=== PATIENT | female | born 1955 | race Two or more races ===

== ENCOUNTER → 2020-03-16 14:17 | Outpatient (BNVA) | payer OTHER, SELFPAY | PROVIDERS: PCP Internal Medicine; Referring Provider Internal Medicine; Visit Provider Internal Medicine Pulmonary Disease | DX: J45.50 Severe persistent asthma, uncomplicated (principal); Z91.09 Other allergy status, other than to drugs and biological substances; Z79.899 Other long term (current) drug therapy | CPT/HCPCS: 99214 ==

== ENCOUNTER 2020-03-27 14:25 | Outpatient (REF) | payer OTHER, SELFPAY | END 2020-03-27 14:26 | disposition home or self-care (01) | LOC: HO.MDS 14:25 | PROVIDERS: Visit Provider Internal Medicine Pulmonary Disease | DX: J45.909 Unspecified asthma, uncomplicated (principal) | CPT/HCPCS: 96372; J0517 ==

== ENCOUNTER 2020-05-22 12:23 | Outpatient (REF) | payer OTHER, SELFPAY ==
--- NOTE | 2020-05-22 12:30 | XR_ITS ---
EXAMINATION: XR KNEE, LEFT CLINICAL INFORMATION: Osteoarthritis of left knee COMPARISON: None TECHNIQUE: Four views of the left knee. FINDINGS: No fracture or subluxation. Mild medial compartment joint space narrowing. Small marginal osteophytes of the medial and patellofemoral compartments. Enthesophyte formation at the superior pole of the patella. Small joint effusion. XR/XR knee LT 4V IMPRESSION: Mild degenerative changes at the medial and patellofemoral compartments. Small joint effusion.
== END 2020-05-22 12:24 | disposition home or self-care (01) ==
LOC: HO.MDS 12:23
PROVIDERS: PCP Internal Medicine; Visit Provider Internal Medicine Pulmonary Disease
DX: J45.909 Unspecified asthma, uncomplicated (principal); M17.12 Unilateral primary osteoarthritis, left knee
CPT/HCPCS: 73564; J0517

== ENCOUNTER 2020-05-23 10:34 | Outpatient (REF) | payer OTHER, SELFPAY ==
--- NOTE | 2020-05-23 | MM_ITS ---
EXAMINATION: MM SCREENING DIGITAL BREAST TOMOSYNTHESIS, BILATERAL CLINICAL INFORMATION: Screening. Asymptomatic. The lifetime risk of breast cancer based on the Tyrer-Cuzick Model is 5%. COMPARISON: Mammography: 02/02/2019, 12/31/2017, 12/23/2016, 10/18/2015 TECHNIQUE: Digital breast tomosynthesis is performed in both the craniocaudal and mediolateral oblique views along with computer-aided detection (CAD). Synthesized 2D images are generated from the tomosynthesis. FINDINGS: The breasts are heterogeneously dense, which may obscure small masses (ACR BI-RADS breast composition Category c). The right breast is similar to prior studies with no interval mass or developing density. Neither breast shows abnormal calcifications. The bilateral axilla and skin contours are unremarkable. Left breast has a lobulated mass anterior 8:00 position approximately 1.3 x 1.1 x 1.1 cm representing change from prior studies. Targeted ultrasound is recommended. Left breast also has a questionable focal nodular asymmetry mid left upper outer quadrant. Additional mammographic views are recommended. MM/MM tomosynthesis screening BI IMPRESSION: 1. Left: 2 findings: lobulated mass 8:00 position 1.3 cm; focal nodular asymmetry mid upper outer quadrant. 2. Right: No mammographic evidence of malignancy. ASSESSMENT: BI-RADS 0: Incomplete - Need Additional Imaging Evaluation RECOMMENDATION: 1. Additional views of the left breast (3D spot CC and 3D spot ML for focal nodular asymmetry upper outer quadrant). 2. Targeted ultrasound left breast. 3. Radiology department staff will contact the patient for additional imaging. This patient's information was entered into a reminder system with a target due date for their next mammogram.
== END 2020-05-23 10:35 | disposition home or self-care (01) ==
LOC: HO.MAMMO 10:34
PROVIDERS: Visit Provider Internal Medicine
DX: Z12.31 Encounter for screening mammogram for malignant neoplasm of breast (principal)
CPT/HCPCS: 77063; 77067; 96372

== ENCOUNTER 2020-06-20 13:57 | Outpatient (REF) | payer OTHER, SELFPAY | END 2020-06-20 13:58 | disposition home or self-care (01) | LOC: HO.MDS 13:57 | PROVIDERS: Visit Provider Internal Medicine Pulmonary Disease | DX: J45.50 Severe persistent asthma, uncomplicated (principal) | CPT/HCPCS: 96372; J0517 ==

== ENCOUNTER 2020-07-17 13:46 | Outpatient (REF) | payer OTHER, SELFPAY ==
--- NOTE | ~2020-07-17 | MM_ITS ---
EXAMINATION: MM DIAGNOSTIC DIGITAL BREAST TOMOSYNTHESIS, LEFT US DIAGNOSTIC ULTRASOUND BREAST, LEFT CLINICAL INFORMATION: Recall from screening for additional findings, new lobulated mass 8:00 position and asymmetric density mid upper outer left breast, respectively. TC score 5%. COMPARISON: Mammography: 05/23/2020, 02/02/2019, 12/31/2017 TECHNIQUE: Digital breast tomosynthesis is performed. 2D images are generated from the tomosynthesis. The following views are obtained: 3-D spot CC, 3-D spot ML x2. Ultrasound left breast is targeted to the lower inner quadrant. Grayscale imaging and color Doppler are performed without and with harmonics. Additional imaging also performed left axilla. FINDINGS: The breasts are heterogeneously dense, which may obscure small masses (ACR BI-RADS breast composition Category c). Additional views left breast demonstrates no persistent asymmetric density upper outer quadrant. Parenchymal pattern is similar to prior exams. Ultrasound targeted ultrasound lower inner left breast demonstrates irregular hypoechoic mass 8:00 position 4 cm from nipple measuring 1.5 cm in greatest dimension. There is likely a 0.4 cm satellite lesion within 0.4 cm of the primary mass. Additional imaging left axilla shows no lymphadenopathy. Results are discussed with the patient at time of visit, using an full time staff interpreter. Ultrasound-guided core biopsy is recommended mass lower inner quadrant left breast. Results and recommendation called to office ([facility]) for Dr. Villasenor on 07/17/2020. MM/MM tomosynthesis added views L IMPRESSION: 1. Suspicious irregular hypoechoic mass lower inner quadrant left breast, 1.5 cm in greatest dimension. 2. Additional images upper outer left breast show no persistent asymmetric density. ASSESSMENT: BI-RADS 4: Suspicious (subcategory 4C: High suspicion for malignancy) RECOMMENDATION: Ultrasound-guided core biopsy left breast mass lower inner quadrant. This patient's information was entered into a reminder system with a target due date for their next mammogram.
== END 2020-07-17 13:47 | disposition home or self-care (01) ==
LOC: HO.MAMMO 13:46
PROVIDERS: Visit Provider Internal Medicine
DX: N63.24 Unspecified lump in the left breast, lower inner quadrant (principal); R92.2 Inconclusive mammogram
CPT/HCPCS: 76642; 77061; 77065

== ENCOUNTER 2020-07-18 13:49 | Outpatient (REF) | payer OTHER, SELFPAY | END 2020-07-18 13:50 | disposition home or self-care (01) | LOC: HO.MDS 13:49 | PROVIDERS: PCP Internal Medicine; Visit Provider Internal Medicine Pulmonary Disease | DX: J45.50 Severe persistent asthma, uncomplicated (principal) | CPT/HCPCS: 96372; J0517 ==

== ENCOUNTER → 2020-07-20 07:24 | Outpatient (BNVA) | payer OTHER, SELFPAY | PROVIDERS: PCP Internal Medicine; Visit Provider Surgery | DX: R92.8 Other abnormal and inconclusive findings on diagnostic imaging of breast (principal) | CPT/HCPCS: 99202 ==

== ENCOUNTER 2020-07-26 09:10 | Outpatient (REF) | payer OTHER, SELFPAY ==
--- NOTE | ~2020-07-26 | MM_ITS ---
EXAMINATION EXAMINATION: EXAMINATION: ULTRASOUND GUIDED CORE BIOPSY BREAST, LEFT POST PROCEDURE DIGITAL MAMMOGRAM, LEFT CLINICAL INFORMATION: Irregular hypoechoic mass 8:00 position left breast 1.5 cm. COMPARISON: Mammography 05/23/2020, 07/17/2020, ultrasound 07/17/2020. FINDINGS: Proper informed consent is obtained from the patient after discussion of the procedure, potential risks and complications, and alternatives. Patient was given an opportunity for questions. The patient appeared to understand. The patient consented to the procedure and signed the consent form. GUIDANCE: Ultrasound-guided; aseptic technique. LESION: Irregular hypoechoic mass 8:00 position 1.5 cm. APPROACH: Mediolateral. ANESTHESIA: 16 mL 1% lidocaine. DERMATOTOMY: Single skin shannan dermatotomy performed. NEEDLE: 14-gauge Achieve core biopsy device with 13.5-gauge co-axial guide needle. CORES: 5. CLIP: HydroMARK; shape: butterfly. POST PROCEDURE UNILATERAL DIGITAL MAMMOGRAM: The post biopsy mammogram is performed in separate room using separate digital mammography equipment from the biopsy procedure. CC and ML views are obtained. The breasts are heterogeneously dense, which may obscure small masses (breast composition category: c). The clip marker is in position. No gross hematoma. The patient tolerated the procedure well. No immediate complications. Home instructions reviewed with the patient. Final pathology results are pending. MM/MM diagnostic mammo unilat LT IMPRESSION: 1. Status post ultrasound-guided core biopsy left breast. 2. Clip placed: HydroMARK; shape: butterfly. 3. Pathology pending. An addendum report will be issued.
== END 2020-07-26 09:11 | disposition home or self-care (01) ==
LOC: HO.MAMMO 09:10
PROVIDERS: Visit Provider Surgery
DX: C50.312 Malignant neoplasm of lower-inner quadrant of left female breast (principal); Z17.0 Estrogen receptor positive status [ER+]
CPT/HCPCS: 19083; 77065; 88305; 88341; 88342; 88360

== ENCOUNTER → 2020-08-01 15:55 | Outpatient (BNVA) | payer OTHER, SELFPAY | PROVIDERS: PCP Internal Medicine; Visit Provider Surgery | DX: R92.8 Other abnormal and inconclusive findings on diagnostic imaging of breast (principal) | CPT/HCPCS: 99212 ==

== ENCOUNTER 2020-08-09 06:37 | Outpatient (REF) | payer OTHER, SELFPAY | END 2020-08-09 06:38 | disposition home or self-care (01) | LOC: HO.MAMMO 06:37 | PROVIDERS: Visit Provider Surgery | DX: Z13.89 Encounter for screening for other disorder (principal) ==

== ENCOUNTER 2020-08-09 06:38 | Day surgery (SDC) | payer OTHER, SELFPAY ==
[2020-08-08 09:48] VITALS: BMI 30.7
--- NOTE | ~2020-08-09 | MM_ITS ---
EXAMINATION: Ultrasound GUIDED NEEDLE LOCALIZATION BREAST, LEFT MM NEEDLE LOCALIZATION SPECIMEN FROM THE LEFT BREAST CLINICAL INFORMATION: Invasive ductal carcinoma of the left breast. COMPARISON: July 26, 2020 and studies dating back to February 02, 2019 TECHNIQUE NEEDLE LOC: Proper informed consent is obtained from the patient after discussion of the procedure, potential risks and complications, and alternatives including declining the procedure today. Patient was given an opportunity for questions. The patient appeared to understand. The patient consented to the procedure and signed the consent form. GUIDANCE: Ultrasound APPROACH: Medial. TARGET: Hypoechoic mass containing metallic clip.. ANESTHESIA: lidocaine 1%: 3 cc. LOCALIZATION MARKER: [place] [employer]. 7.5 cm long The skin is prepped and local anesthesia administered. The needle is positioned and position assessed with ultrasound. The wire is hooked into position. Adjustment of the needle depth was made under mammography with tip of needle lying approximately 1 cm distal to the targeted lesion. [place] needle protector placed. The patient tolerated the procedure well and had no immediate complication. Following the procedure, 4% lidocaine ointment was administered to the left areola and covered with Tegaderm in anticipation of nuclear lymphoscintigraphy injection for sentinel lymph node mapping. TECHNIQUE SPECIMEN RADIOGRAPH: Imaging of the excised specimen is performed using digital mammography in 1 view. FINDINGS SPECIMEN RADIOGRAPH: The specimen shows the needle and hookwire are delivered intact. The biopsy clip marker and index mass are identified in the specimen. Results were called to Dr. Chris Christy in the operating room at the time of imaging. MM/MM diagnostic mammo unilat LT IMPRESSION: 1. Status post left breast needle localization with wire hooked into position. 2. Post operative specimen radiograph obtained.
--- NOTE | ~2020-08-09 | NM_ITS ---
EXAMINATION: NM LYMPHOSCINTIGRAPHY BREAST, LEFT CLINICAL INFORMATION: Invasive ductal cancer left breast. COMPARISON: Mammography and left breast ultrasound 07/17/2020, ultrasound-guided left breast biopsy 07/26/2020. TECHNIQUE: Informed consent was obtained prior to the exam. Lidocaine gel administered to areola within 60 minutes of the procedure. Technetium 99m-Lymphoseek 0.5 mCi was divided into 4 syringes with intradermal administration at 4 quadrants around the areola. The patient tolerated the procedure well. Imaging is performed in 6 views within 45 minutes of injection. FINDINGS: There is strong activity around the areola. There is no activity at the left axilla nor activity along a lymphatic channel at 45 minutes postinjection. Preliminary results called to biomedical equipment support specialist (Usha) for Dr. Christy at 1103 hours.. NM/NM sentinel node w imaging IMPRESSION: 1. Status post breast radionuclide lymphoscintigraphy for sentinel lymph node mapping. 2. No axillary or lymphatic channel activity at 45 minutes postinjection.
[2020-08-09 07:25] VITALS: BP 142/83; PULSE 68; RESP 16; TEMP 36.9; O2SAT 95
[2020-08-09] MEDS: Lactated Ringers 1,000 ML 100 ML IVCONT (07:53)
--- NOTE | 2020-08-09 10:34 | P.CONAN_ITS ---
[facility] Active Problems Active Problems: All Active Problems (Updated 08/09/20 @ 07:24 by Lashonda edwards RN) Severe persistent allergic asthma (Acute) Environmental allergies (Acute) Arthritis (Acute) Abnormal mammogram of left breast (Acute) Past Medical History Medical History Abnormal mammogram of left breast Arthritis Asthma Breast cancer History of high cholesterol HTN (hypertension) Social History Social History Alcohol intake: never Smoking Status: Never smoker Use of substances other than those prescribed or required for medical reasons: No Advance Directives: No Advance Directives Information Provided: Yes Meds Allergies Allergy/AdvReac Type Severity Reaction Status Date / Time morphine [MORPHINE] Allergy Unknown STATES Verified 08/09/20 07:03 TABLET FORM CAUSES SHAKING Active Medications: Current Medications Generic Name Dose Route Start Last Admin Trade Name Freq PRN Reason Stop Dose Admin Lactated Ringer's 1,000 mls @ 100 mls/hr 08/09/20 07:00 08/09/20 07:53 Lr IVCONT 100 mls/hr .Q10H KALYN Administration Home Medications Medication Instructions Recorded Confirmed Last Taken Type albuterol sulfate mg INHALATION 03/05/20 08/02/20 Unknown History albuterol sulfate 90 mcg/actuation INHALATION 03/05/20 08/02/20 Unknown History aerosol inhaler atorvastatin 40 mg tablet 40 mg PO BEDTIME 03/05/20 08/02/20 Unknown History hydrochlorothiazide 12.5 mg tablet 12.5 mg PO DAILY 03/05/20 08/02/20 Unknown History ipratropium bromide 0.02 % 1 INHALATION PRN 03/05/20 08/02/20 Unknown History solution for inhalation ipratropium bromide 17 2 puff INHALATION QID 03/05/20 08/02/20 Unknown History mcg/actuation HFA aerosol inhaler loratadine 10 mg tablet 10 mg PO DAILY 03/05/20 08/02/20 Unknown History montelukast 10 mg tablet 10 mg PO DAILY 03/05/20 08/02/20 Unknown History terbinafine HCl 1 % topical cream applic TOPICAL BID 03/05/20 08/02/20 Unknown History varicella-zoster glycoE vacc-[id number] ml IM 03/05/20 08/02/20 Unknown History adj(PF) 50 mcg/0.5 mL IM susp, kit fluticasone propionate 50 INTRANASAL 03/16/20 08/02/20 Unknown History mcg/actuation nasal spray,suspension ibuprofen 600 mg tablet 600 mg PO TID PRN 03/16/20 08/02/20 Unknown History Exam Exam Date and Time: August 09, 2020 1034 Height,Weight and Vital Signs: Height 5 ft 4 in Weight 81.3 kg Last Vital Signs Temp 98.4 F 08/09/20 07:25 Pulse 68 08/09/20 07:25 Resp 16 08/09/20 07:25 BP 142/83 H 08/09/20 07:25 Pulse Ox 95 08/09/20 07:25 Airway Mallampati Class: II TM Dist: >3cm Neck ROM: Full Assessment and Plan Assessment Anesthesia Assessment: Anesthesia Plan Discussed and Chart Reviewed Final Anesthetic Review NPO: Yes ASA Class: II Final Preanesthetic Review: No Changes in Pt Med Stat, Meds/Allgs Chart Reviewed, Consent Obtained/Reviewed and Anes Risks/Benef Reviewed Patient Risk: Low Procedure Risk: Low Assessment/Block/Sedation in SS: Assess/Block/Sedation-SS Anesthetic Plan Anesthetic Plan: GA Disposition: Standard PACU
--- NOTE | 2020-08-09 10:36 | HO.ANESPROP2 ---
[facility] Active Problems Active Problems: All Active Problems (Updated 08/09/20 @ 07:24 by Lashonda Michelle RN) Severe persistent allergic asthma (Acute) Environmental allergies (Acute) Arthritis (Acute) Abnormal mammogram of left breast (Acute) Past Medical History Medical History Abnormal mammogram of left breast Arthritis Asthma Breast cancer History of high cholesterol HTN (hypertension) Social History Social History Alcohol intake: never Smoking Status: Never smoker Use of substances other than those prescribed or required for medical reasons: No Advance Directives: No Advance Directives Information Provided: Yes Meds Allergies Allergy/AdvReac Type Severity Reaction Status Date / Time morphine [MORPHINE] Allergy Unknown STATES Verified 08/09/20 07:03 TABLET FORM CAUSES SHAKING Active Medications: Current Medications Generic Name Dose Route Start Last Admin Trade Name Freq PRN Reason Stop Dose Admin Lactated Ringer's 1,000 mls @ 100 mls/hr 08/09/20 07:00 08/09/20 07:53 Lr IVCONT 100 mls/hr .Q10H KALYN Administration Lactated Ringer's 1,000 mls @ 20 mls/hr 08/09/20 10:45 Lr IVCONT .Q24H [facility] Home Medications Medication Instructions Recorded Confirmed Last Taken Type albuterol sulfate mg INHALATION 03/05/20 08/02/20 Unknown History albuterol sulfate 90 mcg/actuation INHALATION 03/05/20 08/02/20 Unknown History aerosol inhaler atorvastatin 40 mg tablet 40 mg PO BEDTIME 03/05/20 08/02/20 Unknown History hydrochlorothiazide 12.5 mg tablet 12.5 mg PO DAILY 03/05/20 08/02/20 Unknown History ipratropium bromide 0.02 % 1 INHALATION PRN 03/05/20 08/02/20 Unknown History solution for inhalation ipratropium bromide 17 2 puff INHALATION QID 03/05/20 08/02/20 Unknown History mcg/actuation HFA aerosol inhaler loratadine 10 mg tablet 10 mg PO DAILY 03/05/20 08/02/20 Unknown History montelukast 10 mg tablet 10 mg PO DAILY 03/05/20 08/02/20 Unknown History terbinafine HCl 1 % topical cream applic TOPICAL BID 03/05/20 08/02/20 Unknown History varicella-zoster glycoE vacc-AS01B ml IM 03/05/20 08/02/20 Unknown History adj(PF) 50 mcg/0.5 mL IM susp, kit fluticasone propionate 50 INTRANASAL 03/16/20 08/02/20 Unknown History mcg/actuation nasal spray,suspension ibuprofen 600 mg tablet 600 mg PO TID PRN 03/16/20 08/02/20 Unknown History Exam Exam Date and Time: August 09, 2020 1036 Height,Weight and Vital Signs: Height 5 ft 4 in Weight 81.3 kg Last Vital Signs Temp 98.4 F 08/09/20 07:25 Pulse 68 08/09/20 07:25 Resp 16 08/09/20 07:25 BP 142/83 H 08/09/20 07:25 Pulse Ox 95 08/09/20 07:25
--- NOTE | 2020-08-09 12:44 | P.OP_ITS ---
Operative Note Operative Note Date of Service: 08/09/20 Narrative: Preoperative diagnosis: Invasive ductal carcinoma left breast Postoperative diagnosis: Same Procedure: Left breast lumpectomy with needle localization, left axillary sentinel node biopsy Surgeon: Chris Christy MD Pitching Coach: Marge Reinoso PA-C Anesthesia: Mac Indications for procedure: 64-year-old female patient presenting with a recent mammogram which revealed a new density breast the lower inner quadrant. This was felt to be suspicious for malignancy and biopsy recommended. On examination the patient has a palpable mass located in a similar location. Subsequent ultrasound guided core biopsy revealed invasive ductal carcinoma. Patient presents now for lumpectomy with needle localization and sentinel node excision. Operative findings: Specimen x-ray confirms specimen contains the localizing clip and needle wire. Gross pathology revealed close margins at the anterior and superior margins. For re-excision of these margins was performed. Specimen: Left breast lumpectomy, sentinel node 1., sentinel node 2, additional axillary contents, re-excision of superior and anterior margin. Estimated blood loss: 15 mL Complications: None Procedure details: Patient was brought to the OR placed in a supine position. After administering sedation patient's left breast was prepped with ChloraPrep and draped in a sterile fashion. A surgical time-out was called and consent confirmed. Patient received preoperative antibiotics and Venodyne boots were placed. A wire was previously placed in the lower inner quadrant of the left breast. Local anesthesia consisting of 0.5% Sensorcaine was infiltrated in a curvilinear fashion below the nipple-areolar complex. Incision was then made over this area carried down through subcutaneous tissue. Superior and inferior skin flaps were then created. Dissection was continued medially towards the entrance of the wire below the skin dissection was continued superiorly, laterally and inferiorly. The needle and wire were then brought up through the incision and dissection was continued below the wire needle. Dissection was continued up to the entrance of the needle of the skin. The however the needle was cut using a wireline field operator and the specimen removed. This was sent to x-ray for specimen x- ray. The above findings were noted. Attention was then directed to the left axilla. The gamma probe was then used to identify areas read activity. A single area was identified in mid axilla. A curvilinear incision was then made in this location carried out through subcutaneous tissue and past the clavipectoral fascia. The axillary contents were then and entered. Gamma probe then identified a single enlarged lymph node containing radioactive counts. This single node was removed and sent to pathology as a permanent specimen labeled sentinel node 1. The axilla was again re-scanned a 2nd normal appearing lymph node with moderate number of radioactive counts was identified and sent as sentinel node 2. No other palpable or r adioactive nodes could be identified. Wounds were then checked for hemostasis irrigated and suctioned dry. Clavipectoral fascia was then reapproximated using interrupted 3 0 Polysorb sutures. Dermis was reapproximated using interrupted 3 0 Polysorb sutures. Skin was then closed using a running subcuticular 4-0 Polysorb suture. Gross pathology revealed close margins in the anterior and superior margins. At this point a re-excision of this margin was performed. This was sent as a separate specimen as well. The was then checked for hemostasis. Wounds were irrigated with saline solution and suctioned dry. Deep breast tissue was then reapproximated using interrupted 3-0 Polysorb sutures. Superficial breast tissue was reapproximated using interrupted 3-0 Polysorb sutures. Dermis was reapproximated using interrupted 3 0 Polysorb sutures. Skin was then closed using a running subcuticular 4-0 Polysorb suture. Steri-Strips 2 x 2 gauze and Tegaderm were then applied to both incisions. The patient tolerated the procedure well. Sponge, instrument, and needle counts reported as correct. Patient was transferred to PACU in stable condition. Breast [place] Node Biopsy Substrate(s) used for sentinel node biopsy in the non-neoadjuvant setting: Radiotracer Substrate(s) used for sentinel node biopsy in the neoadjuvant setting: N/A All colored nodes or non-colored nodes present at the end of a dye filled lymphatic channel were removed, if dye was used as the substrate for localiza tion: N/A All significantly radioactive nodes were removed, if radionuclide was used as the substrate for localization: Yes All palpably suspicious nodes were removed, if present: Yes If clips were placed in pathology-involved nodes, those nodes were identified and removed: N/A General Surg. - Synoptic Notes Breast [place] Node Biopsy Substrate(s) used for sentinel node biopsy in the non-neoadjuvant setting: Radiotracer Substrate(s) used for sentinel node biopsy in the neoadjuvant setting: N/A All colored nodes or non-colored nodes present at the end of a dye filled lymphatic channel were removed, if dye was used as the substrate for localization: N/A All significantly radioactive nodes were removed, if radionuclide was used as the substrate for localization: Yes All palpably suspicious nodes were removed, if present: Yes If clips were placed in pathology-involved nodes, those nodes were identified and removed: N/A
--- NOTE | 2020-08-09 12:52 | P.BOP_ITS ---
Brief Operative Note Date of Service: 08/09/20 <RAKESH Banks Last Filed: 08/09/20 12:53> Pre-op diagnosis: left breast CA <RAKESH Banks Last Filed: 08/09/20 12:53> Post-op diagnosis: same <RAKESH Banks Last Filed: 08/09/20 12:53> Procedure: left breast lumpectomy with needle localization, left axillary sentinel lymph node biopsy <RAKESH Banks Last Filed: 08/09/20 12:53> Surgeon: LUIZ BLEDSOE MD <RAKESH Banks Last Filed: 08/09/20 12:53> Anesthesia: MAC <RAKESH Banks Last Filed: 08/09/20 12:53> High Voltage Electrician: Marge Reinoso <RAKESH Banks Last Filed: 08/09/20 12:53> Estimated blood loss (mL): 15 <RAKESH Banks Last Filed: 08/09/20 12:53> Pathology: other (left breast mass; sentinel lymph nodes 1&2, additional axillary tissue) <RAKESH Banks Last Filed: 08/09/20 12:53> Condition: stable <RAKESH Banks Last Filed: 08/09/20 12:53> Disposition: PACU <RAKESH Banks Last Filed: 08/09/20 12:53>
[2020-08-09 13:09] VITALS: BP 129/68; PULSE 56; RESP 16; TEMP 36.4; O2SAT 100
[2020-08-09 13:10] VITALS: BP 163/82; PULSE 60; RESP 20; O2SAT 100
[2020-08-09 13:30] VITALS: BP 157/88; PULSE 70; RESP 20; TEMP 36.1; O2SAT 100
[2020-08-09] MEDS: Acetaminophen 325 MG TABLET 650 MG PO (13:42)
== END 2020-08-09 14:41 | disposition home or self-care (01) ==
PROVIDERS: PCP Internal Medicine; Visit Provider Surgery
PROC: (CPT 19301; principal; 2020-08-09 10:50)
PROC: (CPT 19301; 2020-08-09 10:50)
DX: C50.312 Malignant neoplasm of lower-inner quadrant of left female breast (principal); Z17.0 Estrogen receptor positive status [ER+]; I10 Essential (primary) hypertension; J45.909 Unspecified asthma, uncomplicated; Z79.51 Long term (current) use of inhaled steroids; Z79.899 Other long term (current) drug therapy; Z88.8 Allergy status to other drugs, medicaments and biological substances
CPT/HCPCS: 19301; 38525; 19285; 77065; 78195; 88305; 88307; 88329; 88342; A4648; J0690; J1100; J2250; J2405; J3010

== ENCOUNTER → 2020-08-17 09:55 | Outpatient (BNVA) | payer OTHER, SELFPAY | PROVIDERS: PCP Internal Medicine; Visit Provider Surgery | DX: C50.912 Malignant neoplasm of unspecified site of left female breast (principal) | CPT/HCPCS: 99212 ==

== ENCOUNTER → 2020-08-21 14:50 | Outpatient (BNVA) | payer OTHER, SELFPAY | PROVIDERS: PCP Internal Medicine; Visit Provider Internal Medicine Pulmonary Disease | DX: J45.50 Severe persistent asthma, uncomplicated (principal); Z91.09 Other allergy status, other than to drugs and biological substances | CPT/HCPCS: 99212 ==

== ENCOUNTER → 2020-08-22 11:05 | Outpatient (BNV) | payer MEDICAID, MEDICARE, OTHER, SELFPAY | PROVIDERS: Referring Provider Surgery; Visit Provider Internal Medicine | DX: C50.912 Malignant neoplasm of unspecified site of left female breast (principal); Z17.0 Estrogen receptor positive status [ER+]; Z92.3 Personal history of irradiation; Z79.811 Long term (current) use of aromatase inhibitors | CPT/HCPCS: 99204; 99214; G2211 ==

== ENCOUNTER 2020-09-05 13:30 | Outpatient (REF) | payer OTHER, SELFPAY ==
[2020-09-05 15:45] LABS: SARS COV2 PCR INHOUSE NEGATIVE (Negative)
== END 2020-09-05 13:31 | disposition home or self-care (01) ==
LOC: HO.LAB 13:30
PROVIDERS: Visit Provider Internal Medicine
DX: Z20.822 Contact with and (suspected) exposure to COVID-19 (principal)
CPT/HCPCS: C9803; U0003

== ENCOUNTER 2020-09-12 12:18 | Outpatient (REF) | payer OTHER, SELFPAY | END 2020-09-12 12:19 | disposition home or self-care (01) | LOC: HO.MDS 12:18 | PROVIDERS: PCP Internal Medicine; Visit Provider Internal Medicine Pulmonary Disease | DX: J45.50 Severe persistent asthma, uncomplicated (principal) | CPT/HCPCS: 96372; J0517 ==

== ENCOUNTER → 2020-09-19 14:54 | Outpatient (BNVA) | payer OTHER, SELFPAY | PROVIDERS: PCP Internal Medicine; Visit Provider Surgery | DX: C50.912 Malignant neoplasm of unspecified site of left female breast (principal) | CPT/HCPCS: 99212 ==

== ENCOUNTER 2020-10-03 21:08 | Emergency (ER) | payer MEDICAID, SELFPAY ==
[2020-10-03 21:16] VITALS: BP 179/95; PULSE 79; RESP 18; TEMP 36.4; O2SAT 100; BMI 30.9
--- NOTE | 2020-10-03 22:31 | ED.GENADULT ---
HPI - General Adult General Chief complaint: General Medical Stated complaint: HIGH BP Time Seen by Provider: 10/03/20 22:31 Source: patient Mode of arrival: ambulatory Limitations: no limitations History of Present Illness HPI narrative: Patient history of hypertension ran out of her hydrochlorothiazide 12.5 mg for last 3 days today and she noticed her blood pressure was 168/101 called her PCP or told to go to hospital patient denies any headache no nausea no vomiting no chest pain no shortness of breath Related Data Home Medications Medication Instructions Recorded Confirmed albuterol sulfate 2.5 mg INHALATION Q4-6H 03/05/20 09/20/20 albuterol sulfate 90 mcg/actuation 90 mcg INHALATION DAILY 03/05/20 09/20/20 aerosol inhaler atorvastatin 40 mg tablet 40 mg PO BEDTIME 03/05/20 09/20/20 hydrochlorothiazide 12.5 mg tablet 12.5 mg PO DAILY 03/05/20 09/20/20 ipratropium bromide 0.02 % 1 mcg INHALATION DAILY PRN 03/05/20 09/20/20 solution for inhalation ipratropium bromide 17 2 puff INHALATION QID 03/05/20 09/20/20 mcg/actuation HFA aerosol inhaler loratadine 10 mg tablet 10 mg PO DAILY 03/05/20 09/20/20 terbinafine HCl 1 % topical cream 1 applic TOPICAL BID 03/05/20 09/20/20 fluticasone propionate 50 50 mcg INTRANASAL DAILY 03/16/20 09/20/20 mcg/actuation nasal spray,suspension ibuprofen 600 mg tablet 600 mg PO TID PRN 03/16/20 09/20/20 Previous Rx's Medication Instructions Recorded fluticasone 500 mcg-salmeterol 50 1 ea INHALATION BID #60 ea 04/24/20 mcg/dose blistr powdr for inhalation hydrochlorothiazide 25 mg PO DAILY #30 tab 10/03/20 Allergies Allergy/AdvReac Type Severity Reaction Status Date / Time morphine [MORPHINE] Allergy Unknown STATES Verified 08/21/20 15:09 TABLET FORM CAUSES SHAKING Review of Systems Review of Systems: Yes all other systems are reviewed and are negative PMFSH Past Medical History Medical History Abnormal mammogram of left breast Arthritis Asthma Breast cancer History of high cholesterol HTN (hypertension) Surgical History History of lumpectomy of left breast Family History Family History Mother Arthritis Alzheimer disease Social History Social History Alcohol intake: former Smoking Status: Never smoker Advance Directives: No Advance Directives Information Provided: Yes Physical Exam Vital Signs: Vital Signs: Last Vital Signs Temp 97.6 F 10/03/20 21:16 Pulse 79 10/03/20 21:16 Resp 18 10/03/20 21:16 BP 166/82 H 10/03/20 22:42 Pulse Ox 100 10/03/20 21:16 Body Mass Index 30.9 Appearance: Alert. Oriented X3. No acute distress. Eyes: PERRLA, No Nystagmus ENT: Pharynx normal. Oral Mucosa moist Neck: Normal inspection. Neck supple. CVS: Normal heart rate and rhythm. Pulses normal. Respiratory: No respiratory distress. Equal air entry bilateral, no wheezing/rales/rhonchi Abdomen: Soft and nontender. Bowel sounds are present, no mass palpable, no CVA tenderness Skin: Skin warm and dry. Normal skin color. Normal skin turgor. Extremities: No lower extremity edema. No calf tenderness Neuro: Oriented X 3. No motor deficit. No sensory deficit.No cerebellar signs , cranial nerves II-XII intact Medical Decision Making MDM Narrative Medical decision making narrative: Patient with mild hypertension missed her hydrochlorothiazide will prescribe her description advised to follow with PCP Discharge Plan Discharge Clinical Impression: Hypertension Qualifiers: Hypertension type: essential hypertension Qualified Code(s): I10 - Essential (primary) hypertension Patient Disposition: Home, Self-Care Instructions: Chronic Hypertension (ED) Additional Instructions: Take medication for blood pressure as advised by her PCP and follow with your PCP Checking blood pressure daily Prescriptions: New hydrochlorothiazide 25 mg tablet 25 mg PO DAILY Qty: 30 RF: 0 No Action fluticasone propion-salmeterol 500-50 mcg/dose blister with device 1 ea inhalation BID Qty: 60 RF: 3 ipratropium bromide 0.02 % solution 1 mcg inhalation DAILY PRN (Reason: Wheezing) RF: 0 loratadine 10 mg tablet 10 mg PO DAILY RF: 0 hydrochlorothiazide 12.5 mg tablet 12.5 mg PO DAILY RF: 0 ipratropium bromide 17 mcg/actuation HFA aerosol inhaler 2 puff inhalation QID RF: 0 albuterol sulfate 90 mcg/actuation HFA aerosol inhaler 90 mcg inhalation DAILY RF: 0 albuterol sulfate 2.5 mg /3 mL (0.083 %) solution for nebulization 2.5 mg inhalation Q4-6H RF: 0 atorvastatin 40 mg tablet 40 mg PO BEDTIME RF: 0 terbinafine HCl 1 % cream 1 applic topical BID RF: 0 fluticasone propionate 50 mcg/actuation spray,suspension 50 mcg intranasal DAILY RF: 0 ibuprofen 600 mg tablet 600 mg PO TID PRN (Reason: Pain) RF: 0 Print Language: British
[2020-10-03 22:42] VITALS: BP 166/82
[2020-10-03] MEDS: hydroCHLOROthiazide 12.5 MG TABLET PO (22:58)
== END 2020-10-03 23:09 | disposition home or self-care (01) ==
PROVIDERS: Emergency Provider Internal Medicine; PCP Internal Medicine
DX: I10 Essential (primary) hypertension (principal); Z85.3 Personal history of malignant neoplasm of breast
CPT/HCPCS: 99283; 99284

== ENCOUNTER 2020-11-06 13:49 | Outpatient (REF) | payer MEDICAID, SELFPAY | END 2020-11-06 13:50 | disposition home or self-care (01) | LOC: HO.MDS 13:49 | PROVIDERS: PCP Internal Medicine; Visit Provider Internal Medicine Pulmonary Disease | DX: J45.50 Severe persistent asthma, uncomplicated (principal) | CPT/HCPCS: 96372; J0517 ==

== ENCOUNTER 2020-11-29 11:46 | Outpatient (REF) | payer MEDICAID, SELFPAY ==
--- NOTE | ~2020-11-29 | XR_ITS ---
EXAMINATION: KNEE X-RAY CLINICAL INFORMATION: Pain COMPARISON: Previous x-ray May 2020 TECHNIQUE: Standing AP view of both knees and lateral and sunrise view of the left knee FINDINGS: Left: Bone alignment is normal. No fracture or dislocation is seen. Joint space narrowing at the medial femoral tibial joint. There are small osteophytes patellofemoral joint. There is an osteophyte at the quadriceps tendon insertion to the patella. There is a moderate to large joint effusion. Standing AP view of the right knee is unremarkable. XR/XR knee standing BI IMPRESSION: Left knee: Mild arthritis at the medial femoral tibial and patellofemoral joints and joint effusion. Unremarkable AP view of the right knee.
--- NOTE | ~2020-11-29 | XR_ITS ---
EXAMINATION: KNEE X-RAY CLINICAL INFORMATION: Pain COMPARISON: Previous x-ray May 2020 TECHNIQUE: Standing AP view of both knees and lateral and sunrise view of the left knee FINDINGS: Left: Bone alignment is normal. No fracture or dislocation is seen. Joint space narrowing at the medial femoral tibial joint. There are small osteophytes patellofemoral joint. There is an osteophyte at the quadriceps tendon insertion to the patella. There is a moderate to large joint effusion. Standing AP view of the right knee is unremarkable. XR/XR knee LT 2V IMPRESSION: Left knee: Mild arthritis at the medial femoral tibial and patellofemoral joints and joint effusion. Unremarkable AP view of the right knee.
== END 2020-11-29 11:47 | disposition home or self-care (01) ==
LOC: HO.HOSX 11:46
PROVIDERS: Visit Provider Orthopaedic Surgery
DX: M25.562 Pain in left knee (principal)
CPT/HCPCS: 20610; 73560; 73565; 99202; J1100

== ENCOUNTER → 2020-12-25 14:37 | Outpatient (BNVA) | payer MEDICAID, SELFPAY | PROVIDERS: PCP Internal Medicine; Visit Provider Internal Medicine Pulmonary Disease | DX: J45.50 Severe persistent asthma, uncomplicated (principal); Z91.09 Other allergy status, other than to drugs and biological substances | CPT/HCPCS: 99212 ==

== ENCOUNTER 2020-12-27 14:19 | Outpatient (REF) | payer MEDICAID, SELFPAY ==
--- NOTE | ~2020-12-27 | MM_ITS ---
EXAMINATION: BONE DENSITOMETRY CLINICAL INDICATION: Encounter for screening for osteoporosis. Postmenopausal. COMPARISON: Previous BD dated 02/04/2019 and baseline BD dated 12/23/2016. TECHNIQUE: Using a [employer] DXA System (software version: 13.1) manufactured by [employer], dual-energy x-ray absorptiometry was performed of the lumbar spine and left hip. The images are of good technical quality. Summary results are attached. FINDINGS: AP SPINE L1-L2 (excluding L3 and L4): The data of L1-L4 has been changed to exclude the L3 and L4 vertebral bodies, because degenerative changes at these levels may cause overestimation of lumbar spine density. Current: BMD 1.115 g/cm2, Z-score 0.6, T-score -0.4, normal, 0.6% decrease from previous, 0.6% decrease from baseline (<5% change is not significant). Prior: BMD 1.122 g/cm2. Baseline: BMD 1.122 g/cm2. LEFT FEMUR, NECK: Current: BMD 0.899 g/cm2, Z-score 0.1, T-score -1.0, normal. Prior: BMD 0.942 g/cm2. Baseline: BMD 0.941 g/cm2. LEFT FEMUR, TOTAL: Current: BMD 0.998 g/cm2, Z-score 0.7, T-score -0.1, normal, 3.7% decrease from previous, 3.0% decrease from baseline (<5% change is not significant). Prior: BMD 1.036 g/cm2. Baseline: BMD 1.029 g/cm2. IDENTIFIED RISK FACTORS: Menopause. Osteoporosis. Thiazide. HISTORY OF FRACTURE: None listed. MEDICATIONS: Vitamin D. MM/XR DEXA axial skeleton IMPRESSION: 1. DIAGNOSIS: Normal bone density based on the lowest T-score value of -1.0 in the femoral neck applying World Health Organization criteria. 2. 10-YEAR FRACTURE RISK PREDICTION, FRAX: Major osteoporotic fracture (clinical spine, forearm, hip or shoulder) 4.2%. Hip fracture 0.3%. 3. Treatment Recommendations: NOF guidelines recommend consideration for treatment in postmenopausal women and men age 50 and older presenting with the following: -A hip or vertebral (clinical or morphometric) fracture. -T-score less than or equal to -2.5 at the femoral neck or spine after appropriate evaluation to exclude secondary causes. -Low bone mass at the hip or spine and a 10-year fracture probability by FRAX of greater than or equal to 3% for hip fracture or greater than or equal to 20% for major osteoporotic fracture based on the [place] adapted WHO algorithm. 4. Other Recommendations: All treatment decisions require clinical judgment and consideration of individual patient factors, including patient preferences, comorbidities, previous drug use, risk factors not captured in the FRAX model (e.g. frailty, falls, vitamin D deficiency, increased bone turnover, interval significant decline in bone density) and possible under or overestimation of fracture risk by FRAX. FUTURE SCAN RECOMMENDATION: People with diagnosed cases of osteoporosis or at high risk for fracture should have regular bone mineral density tests. For patients eligible for Medicare, routine testing is allowed once every 2 years. The testing frequency can be increased to one year for patients who have rapidly progressing disease, those who are receiving or discontinuing medical therapy to restore bone mass, or have additional risk factors.
== END 2020-12-27 14:20 | disposition home or self-care (01) ==
LOC: HO.MAMMO 14:19
PROVIDERS: PCP Internal Medicine; Visit Provider Internal Medicine
DX: Z13.820 Encounter for screening for osteoporosis (principal); M81.0 Age-related osteoporosis without current pathological fracture; C50.919 Malignant neoplasm of unspecified site of unspecified female breast; Z78.0 Asymptomatic menopausal state; Z79.899 Other long term (current) drug therapy
CPT/HCPCS: 77080

== ENCOUNTER 2021-01-01 11:52 | Outpatient (REF) | payer MEDICAID, SELFPAY | END 2021-01-01 11:53 | disposition home or self-care (01) | LOC: HO.MDS 11:52 | PROVIDERS: PCP Internal Medicine; Visit Provider Internal Medicine Pulmonary Disease | DX: C50.312 Malignant neoplasm of lower-inner quadrant of left female breast (principal) | CPT/HCPCS: 99212 ==

== ENCOUNTER 2021-01-08 14:13 | Outpatient (REF) | payer MEDICAID, SELFPAY | END 2021-01-08 14:14 | disposition home or self-care (01) | LOC: HO.MDS 14:13 | PROVIDERS: PCP Internal Medicine; Visit Provider Internal Medicine Pulmonary Disease | DX: J45.50 Severe persistent asthma, uncomplicated (principal) | CPT/HCPCS: 96372; J0517 ==

== ENCOUNTER 2021-03-05 13:08 | Outpatient (REF) | payer MEDICAID, SELFPAY | END 2021-03-05 13:09 | disposition home or self-care (01) | LOC: HO.MDS 13:08 | PROVIDERS: PCP Internal Medicine; Visit Provider Internal Medicine Pulmonary Disease | DX: J45.50 Severe persistent asthma, uncomplicated (principal) | CPT/HCPCS: 96372; J0517 ==

== ENCOUNTER → 2021-04-02 13:37 | Outpatient (BNVA) | payer MEDICAID, SELFPAY | PROVIDERS: PCP Internal Medicine; Visit Provider Surgery | DX: C50.912 Malignant neoplasm of unspecified site of left female breast (principal) | CPT/HCPCS: 99212 ==

== ENCOUNTER 2021-04-23 13:51 | Outpatient (REF) | payer MEDICAID, SELFPAY ==
[2021-04-23 14:11] LABS: MANUAL DIFF FLAG NO
[2021-04-23 14:47] LABS: Basophils Percent Auto 0.1 % (0-2); Hematocrit 38.5 % (37.0-47.0); Hemoglobin 12.4 g/dl (12.0-16.0); Imm Gran Abs Auto 0.03 X10*3/uL (0.00-0.03); Imm Gran Pct Auto 0.4 % (0.0-0.4); Lymphocytes Percent Auto 28.2 % (20-40); Mean Corpuscular HGB Conc 32.2 g/dl (31.0-35.0); Mean Corpuscular Hemoglobin 32.2 pg (27.0-33.0); Mean Platelet Volume 9.8 fL (9.4-12.3); Monocytes Absolute Auto 0.5 X10*3/uL (0.1-1.2); Monocytes Percent Auto 6.4 % (2-11); Neutrophils Absolute Auto 4.5 x10*3/uL (2.0-8.3); Neutrophils Percent Auto 64.9 % (45-73); Platelet Count 222 X10*3/uL (160-400); Red Blood Count 3.85 X10*6/uL (4.20-5.50)
[2021-04-23 15:08] LABS: Alanine Aminotransferase 19 U/L (0-31); Albumin Level 4.4 g/dL (3.5-5.0); Alkaline Phosphatase 65 U/L (39-117); Anion Gap 12 (12-20); Aspartate Amino Transferase 20 U/L (5-31); Bilirubin Total 0.4 mg/dL (0.0-1.0); Blood Urea Nitrogen 15 mg/dL (9-16); Carbon Dioxide 30 mmol/L (22-29); Chloride 102 mmol/L (96-108); Cholesterol 203 mg/dL; Estimated Glomerular Filt Rate > 60; Glucose Random 92 mg/dL (60-115); HDL Cholesterol 51 mg/dL; LDL Cholesterol Calculated 111 mg/dl; Sodium 140 mmol/L (135-145); Total Protein 6.9 g/dL (6.5-8.0); Triglycerides 206 mg/dL
== END 2021-04-23 13:52 | disposition home or self-care (01) ==
LOC: HO.LAB 13:51
PROVIDERS: PCP Internal Medicine; Visit Provider Internal Medicine
DX: Z00.00 Encounter for general adult medical examination without abnormal findings (principal); E78.00 Pure hypercholesterolemia, unspecified; J45.909 Unspecified asthma, uncomplicated; Z85.3 Personal history of malignant neoplasm of breast
CPT/HCPCS: 36415; 80053; 80061; 85025; 87086

== ENCOUNTER 2021-05-07 13:31 | Outpatient (REF) | payer MEDICAID, SELFPAY | END 2021-05-07 13:32 | disposition home or self-care (01) | LOC: HO.MDS 13:31 | PROVIDERS: PCP Internal Medicine; Visit Provider Internal Medicine Pulmonary Disease | DX: J45.50 Severe persistent asthma, uncomplicated (principal) | CPT/HCPCS: 96372; J0517 ==

== ENCOUNTER → 2021-05-09 12:39 | Outpatient (BNVA) | payer MEDICAID, SELFPAY | PROVIDERS: PCP Internal Medicine; Visit Provider Internal Medicine Pulmonary Disease | DX: J45.50 Severe persistent asthma, uncomplicated (principal); Z91.09 Other allergy status, other than to drugs and biological substances | CPT/HCPCS: 99212 ==

== ENCOUNTER 2021-05-20 13:04 | Outpatient (REF) | payer MEDICAID, SELFPAY ==
--- NOTE | ~2021-05-20 | MM_ITS ---
EXAMINATION: MM DIAGNOSTIC DIGITAL BREAST TOMOSYNTHESIS, BILATERAL CLINICAL INFORMATION: Left lumpectomy for invasive breast cancer 08/09/2020. Due for yearly. COMPARISON: Mammography: 08/09/2020, 07/26/2020, 07/17/2020, 05/23/2020, 02/02/2019, 12/31/2017 TECHNIQUE: Digital breast tomosynthesis is performed in both the craniocaudal and mediolateral oblique views along with computer-aided detection (CAD). Synthesized 2D images are generated from the tomosynthesis. Additional magnification left CC and magnification left LM views are provided. FINDINGS: The breasts are heterogeneously dense, which may obscure small masses (ACR BI-RADS breast composition Category c). There are post therapy changes on the left with mild reduced breast size and mild scarring. Neither breast shows significant mass or suspicious architectural changes or abnormal calcifications. Right breast is stable from prior studies. The axilla are unremarkable. Results are provided to the patient at time of visit by the technologist. MM/MM tomosynthesis diagnostic BI IMPRESSION: No mammographic evidence of malignancy. Post therapy changes left breast. ASSESSMENT: BI-RADS 2: Benign RECOMMENDATION: Annual bilateral mammography. This patient's information was entered into a reminder system with a target due date for their next mammogram.
== END 2021-05-20 13:05 | disposition home or self-care (01) ==
LOC: HO.MAMMO 13:04
PROVIDERS: Absent Provider Surgery; Visit Provider Internal Medicine
DX: C50.912 Malignant neoplasm of unspecified site of left female breast (principal)
CPT/HCPCS: 77062; 77066

== ENCOUNTER 2021-06-10 15:03 | Emergency (ER) | payer MEDICAID, SELFPAY ==
--- NOTE | ~2021-06-10 | XR_ITS ---
EXAMINATION: XR CHEST CLINICAL INFORMATION: Covid. COMPARISON: None TECHNIQUE: Frontal portable view of the chest was obtained. 6:27 PM FINDINGS: Lungs are clear. No pulmonary vascular congestion. There is no pleural effusion. The heart size is normal. The cardiac and mediastinal contours are normal. There are multilevel degenerative changes of dorsal spine. XR/XR chest 1V IMPRESSION: Unremarkable examination.
[2021-06-10 16:02] VITALS: BP 133/79; PULSE 74; RESP 16; TEMP 36.7; O2SAT 95; BMI 36.1
[2021-06-10 16:51] LABS: COVID-19 Test Positive (Negative); IDNOW Serial# 08D9AD1C
--- NOTE | 2021-06-10 17:50 | ED_ITS ---
HPI - Abdominal Pain General Chief Complaint: Abdominal Pain Stated Complaint: Abdominal pain Time Seen by Provider: 06/10/21 17:44 Source: patient Mode of arrival: ambulatory Limitations: no limitations History of Present Illness HPI narrative: Patient not vaccinated against COVID complaining of diffuse abdominal pain with nausea weakness for last 2 days no fever no chills no cough or shortness of breath no diarrhea no black stool Related Data Home Medications Medication Instructions Recorded Confirmed albuterol sulfate 2.5 mg INHALATION Q4-6H 03/05/20 05/07/21 albuterol sulfate 90 mcg/actuation 90 mcg INHALATION DAILY 03/05/20 05/07/21 aerosol inhaler atorvastatin 40 mg tablet 40 mg PO BEDTIME 03/05/20 05/07/21 ipratropium bromide 0.02 % 1 mcg INHALATION DAILY PRN 03/05/20 05/07/21 solution for inhalation ipratropium bromide 17 2 puff INHALATION QID 03/05/20 05/07/21 mcg/actuation HFA aerosol inhaler loratadine 10 mg tablet 10 mg PO DAILY 03/05/20 05/07/21 terbinafine HCl 1 % topical cream 1 applic TOPICAL BID 03/05/20 05/07/21 fluticasone propionate 50 50 mcg INTRANASAL DAILY 03/16/20 05/07/21 mcg/actuation nasal spray,suspension ibuprofen 600 mg tablet 600 mg PO TID PRN 03/16/20 05/07/21 Previous Rx's Medication Instructions Recorded hydrochlorothiazide 25 mg tablet 25 mg PO DAILY #30 tab 10/03/20 fluticasone 500 mcg-salmeterol 50 1 ea PO BID #60 cap 10/17/20 mcg/dose blistr powdr for inhalation (Advair Diskus) celecoxib 200 mg capsule (Celebrex) 200 mg PO BID 30 Days #60 cap 12/12/20 letrozole 2.5 mg tablet 2.5 mg PO DAILY #90 tab 02/04/21 ondansetron 4 mg disintegrating 4 mg PO Q6-8H PRN #7 tab 06/10/21 tablet Allergies Allergy/AdvReac Type Severity Reaction Status Date / Time morphine [MORPHINE] Allergy Unknown STATES Verified 05/09/21 13:02 TABLET FORM CAUSES SHAKING Review of Systems Review of Systems Yes all other systems are reviewed and are negative Physical Exam Vital Signs: Vital Signs: Last Vital Signs Temp 100.3 F 06/10/21 19:08 Pulse 77 06/10/21 20:24 Resp 24 H 06/10/21 20:24 BP 139/87 06/10/21 20:24 Pulse Ox 97 06/10/21 20:24 BMI result Body Mass Index 36.1 Appearance: Alert. Oriented X3. No acute distress. ENT: Pharynx normal. Oral Mucosa moist Neck: Normal inspection. Neck supple. CVS: Normal heart rate and rhythm. Pulses normal. Respiratory: No respiratory distress. Equal air entry bilateral, no wheezing/rales/rhonchi Abdomen: Soft and nontender. Bowel sounds are present, no mass palpable, no CVA tenderness Skin: Skin warm and dry. Normal skin color. Normal skin turgor. Extremities: No lower extremity edema. No calf tenderness Neuro: Oriented X 3. MDM - Abdominal Pain MDM Narrative Medical decision making narrative: Patient COVID positive chest x-ray negative saturating 97 % on room air will discharge patient home advised to have social distancing and report to the ER if increased shortness of breath Lab Data Attestation: I reviewed the patient's lab results. Result diagrams: 06/10/21 18:42 06/10/21 18:42 Labs: Lab Results 06/10/21 06/10/21 06/10/21 Range/Units 16:17 18:42 18:42 WBC 2.9 L (4.8-10.8) X10*3/uL RBC 4.00 L (4.20-5.50) X10*6/uL Hgb 12.8 (12.0-16.0) g/dl Hct 40.0 (37.0-47.0) % MCV 100.0 H (80.0-98.0) fL MCH 32.0 (27.0-33.0) pg MCHC 32.0 (31.0-35.0) g/dl RDW 13.1 (11.0-16.0) % Plt Count 137 L D (160-400) X10*3/uL MPV 9.7 (9.4-12.3) fL Immature Gran % (Auto) 0.3 (0.0-0.4) % Neut % (Auto) 52.8 (45-73) % Lymph % (Auto) 38.3 (20-40) % Pierce % (Auto) 8.3 (2-11) % Eos % (Auto) 0.0 (0-4) % Baso % (Auto) 0.3 (0-2) % Lymph # (Auto) 1.2 (1.2-4.9) X10*3/uL Pierce # (Auto) 0.3 (0.1-1.2) X10*3/uL Eos # (Auto) 0.0 (0.0-0.4) X10*3/uL Baso # (Auto) 0.0 (0.0-0.2) X10*3/uL Abs Immat Gran (auto) 0.01 (0.00-0.03) X10*3/uL Absolute Neuts (auto) 1.6 L (2.0-8.3) x10*3/uL Absolute Nucleated RBC 0.000 (0.0-0.012) X10*3/uL Nucleated RBC % (auto) 0.0 (0.0-0.2) /100WBC Smear Tech's Comments VERIFIED Sodium 143 (135-145) mmol/L Potassium 3.2 L (3.3-5.1) mmol/L Chloride 101 (96-108) mmol/L Carbon Dioxide 34 H (22-29) mmol/L Anion Gap 11 L (12-20) BUN 12 (9-16) mg/dL Creatinine 0.84 (0.5-1.4) mg/dL Estim Creat Clear Calc 72.1 Estimated GFR > 60 Random Glucose 90 (60-115) mg/dL Calcium 9.4 (8.4-10.2) mg/dL Total Bilirubin 0.4 (0.0-1.0) mg/dL AST 29 D (5-31) U/L ALT 23 (0-31) U/L Alkaline Phosphatase 60 (39-117) U/L Total Protein 6.8 (6.5-8.0) g/dL Albumin 4.2 (3.5-5.0) g/dL Lipase 33 (8-78) U/L COVID-19 ([facility]IL[facility]O) Positive A (Negative) COVID-19 Clin Com See Note Discharge Plan Discharge Clinical Impression: COVID-19 Patient Disposition: Home, Self-Care Instructions: COVID-19 (Coronavirus Disease 2019) (ED) Additional Instructions: Drink plenty of fluids Medicine for nausea Report to ER if increased shortness of breath Social distancing as advised Prescriptions: New ondansetron 4 mg tablet,disintegrating 4 mg PO Q6-8H PRN (Reason: nausea and vomiting) Qty: 7 RF: 0 No Action fluticasone propion-salmeterol [Advair Diskus] 500-50 mcg/dose blister with device 1 ea PO BID Qty: 60 RF: 3 celecoxib [Celebrex] 200 mg capsule 200 mg PO BID 30 Days Qty: 60 RF: 3 letrozole 2.5 mg Tablet 2.5 mg PO DAILY Qty: 90 RF: 3 hydrochlorothiazide 25 mg tablet 25 mg PO DAILY Qty: 30 RF: 0 ipratropium bromide 0.02 % solution 1 mcg inhalation DAILY PRN (Reason: Wheezing) RF: 0 loratadine 10 mg tablet 10 mg PO DAILY RF: 0 ipratropium bromide 17 mcg/actuation HFA aerosol inhaler 2 puff inhalation QID RF: 0 albuterol sulfate 90 mcg/actuation HFA aerosol inhaler 90 mcg inhalation DAILY RF: 0 albuterol sulfate 2.5 mg /3 mL (0.083 %) solution for nebulization 2.5 mg inhalation Q4-6H RF: 0 atorvastatin 40 mg tablet 40 mg PO BEDTIME RF: 0 terbinafine HCl 1 % cream 1 applic topical BID RF: 0 fluticasone propionate 50 mcg/actuation spray,suspension 50 mcg intranasal DAILY RF: 0 ibuprofen 600 mg tablet 600 mg PO TID PRN (Reason: Pain) RF: 0 Interventions: ED Discharge Assessment Last Done: 06/10/21 20:52 Discharge Date/Time: 06/10/21 20:53 [facility] [place] Past Medical History Medical History Abnormal mammogram of left breast Arthritis Asthma Breast cancer History of high cholesterol HTN (hypertension) Surgical History History of lumpectomy of left breast Family History Family History Mother Arthritis Alzheimer disease Social History Social History Are you a primary healthcare science specialist to a significant other at home: No Alcohol intake: never Patient Tobacco Use Status: Never used Tobacco Advance Directives: No Advance Directives Information Provided: No Current occupational status: unemployed Current occupation: rt hand
[2021-06-10] MEDS: ondansetron HCL 4 MG/2 ML VIAL IVPUSH (18:45)
[2021-06-10] MEDS: 0.9 % Sodium Chloride 1,000 ML 999 ML IV (18:45)
[2021-06-10] MEDS: Famotidine/PF 20 MG/2 ML VIAL IVPUSH (18:45)
--- NOTE | 2021-06-10 18:47 | PC.NURSE ---
Pt received: AOX4 and offers c/o generalized abd discomfort with N/V. Heart sounds normal and lungs clear. Pt abd round and gen tender Pt denies any dysuria.
[2021-06-10 18:51] LABS: Hemoglobin 12.8 g/dl (12.0-16.0); Imm Gran Abs Auto 0.01 X10*3/uL (0.00-0.03); Imm Gran Pct Auto 0.3 % (0.0-0.4); MANUAL DIFF FLAG SCAN; PLT CLUMP 1; Red Cell Distribution Width 13.1 % (11.0-16.0); SCAN SMEAR FLAG 1
[2021-06-10 18:53] LABS: Basophils Percent Auto 0.3 % (0-2); Lymphocytes Absolute Auto 1.2 X10*3/uL (1.2-4.9); Lymphocytes Percent Auto 38.3 % (20-40); Mean Platelet Volume 9.7 fL (9.4-12.3); Monocytes Absolute Auto 0.3 X10*3/uL (0.1-1.2); Monocytes Percent Auto 8.3 % (2-11); Neutrophils Absolute Auto 1.6 x10*3/uL (2.0-8.3); Neutrophils Percent Auto 52.8 % (45-73)
[2021-06-10 19:00] LABS: White Blood Count 2.9 X10*3/uL (4.8-10.8)
[2021-06-10 19:06] LABS: Alanine Aminotransferase 23 U/L (0-31); Albumin Level 4.2 g/dL (3.5-5.0); Alkaline Phosphatase 60 U/L (39-117); Anion Gap 11 (12-20); Aspartate Amino Transferase 29 U/L (5-31); Bilirubin Total 0.4 mg/dL (0.0-1.0); Blood Urea Nitrogen 12 mg/dL (9-16); Calcium 9.4 mg/dL (8.4-10.2); Carbon Dioxide 34 mmol/L (22-29); Chloride 101 mmol/L (96-108); Creatinine Clr Calc Pharmacy 72.1; Estimated Glomerular Filt Rate > 60; Glucose Random 90 mg/dL (60-115); Lipase 33 U/L (8-78); Potassium 3.2 mmol/L (3.3-5.1); Sodium 143 mmol/L (135-145); Total Protein 6.8 g/dL (6.5-8.0)
[2021-06-10 19:08] VITALS: BP 126/79; PULSE 74; RESP 20; TEMP 37.9; O2SAT 96
[2021-06-10 19:22] LABS: Platelet Count 137 X10*3/uL (160-400); SLIDE REVIEW VERIFIED
[2021-06-10] MEDS: Potassium Bicarbonate/Cit AC 25 MEQ TABLET.EFF PO (20:12)
[2021-06-10 20:24] VITALS: BP 139/87; PULSE 77; RESP 24; O2SAT 97
== END 2021-06-10 20:53 | disposition home or self-care (01) ==
PROVIDERS: Emergency Provider Internal Medicine; PCP Internal Medicine
DX: U07.1 COVID-19 (principal); I10 Essential (primary) hypertension; Z85.3 Personal history of malignant neoplasm of breast
CPT/HCPCS: 36415; 71045; 80053; 83690; 85025; 87635; 96361; 96374; 96375; 99283; 99284; J2405

== ENCOUNTER 2021-07-04 13:12 | Outpatient (REF) | payer MEDICAID, SELFPAY | END 2021-07-04 13:13 | disposition home or self-care (01) | LOC: HO.MDS 13:12 | PROVIDERS: PCP Internal Medicine; Visit Provider Internal Medicine Pulmonary Disease | DX: J45.50 Severe persistent asthma, uncomplicated (principal) | CPT/HCPCS: 96372; J0517 ==

== ENCOUNTER 2021-09-03 13:05 | Outpatient (REF) | payer MEDICAID, SELFPAY | END 2021-09-03 13:06 | disposition home or self-care (01) | LOC: HO.MDS 13:05 | PROVIDERS: PCP Internal Medicine; Visit Provider Internal Medicine Pulmonary Disease | DX: J45.50 Severe persistent asthma, uncomplicated (principal) | CPT/HCPCS: 96372; J0517 ==

== ENCOUNTER → 2021-10-03 12:40 | Outpatient (BNVA) | payer MEDICAID, SELFPAY | PROVIDERS: PCP Internal Medicine; Referring Provider Internal Medicine; Visit Provider Surgery | DX: C50.912 Malignant neoplasm of unspecified site of left female breast (principal); I89.0 Lymphedema, not elsewhere classified | CPT/HCPCS: 99212 ==

== ENCOUNTER 2021-10-29 11:53 | Outpatient (REF) | payer MEDICAID, SELFPAY | END 2021-10-29 11:54 | disposition home or self-care (01) | LOC: HO.MDS 11:53 | PROVIDERS: PCP Internal Medicine; Visit Provider Internal Medicine Pulmonary Disease | DX: J45.50 Severe persistent asthma, uncomplicated (principal) | CPT/HCPCS: 96372; J0517 ==

== ENCOUNTER → 2021-11-06 12:34 | Outpatient (BNVA) | payer MEDICAID, SELFPAY | PROVIDERS: PCP Internal Medicine; Visit Provider Internal Medicine Pulmonary Disease | DX: J45.50 Severe persistent asthma, uncomplicated (principal); Z91.09 Other allergy status, other than to drugs and biological substances | CPT/HCPCS: 99212 ==

== ENCOUNTER 2021-12-24 10:35 | Outpatient (REF) | payer MEDICAID, SELFPAY | END 2021-12-24 10:36 | disposition home or self-care (01) | LOC: HO.MDS 10:35 | PROVIDERS: Visit Provider Internal Medicine Pulmonary Disease | DX: J45.50 Severe persistent asthma, uncomplicated (principal) | CPT/HCPCS: 96372; J0517 ==

== ENCOUNTER 2022-02-17 12:32 | Outpatient (REF) | payer MEDICARE, MEDICAID, SELFPAY | END 2022-02-17 12:33 | disposition home or self-care (01) | LOC: HO.MDS 12:32 | PROVIDERS: Visit Provider Internal Medicine Pulmonary Disease | DX: J45.50 Severe persistent asthma, uncomplicated (principal) | CPT/HCPCS: 96372; J0517 ==

== ENCOUNTER 2022-02-28 10:55 | Outpatient (REF) | payer MEDICARE, MEDICAID, SELFPAY ==
[2022-02-28 11:10] LABS: MANUAL DIFF FLAG NO
[2022-02-28 11:32] LABS: Basophils Percent Auto 0.3 % (0-2); Hematocrit 39.8 % (37.0-47.0); Hemoglobin 12.9 g/dl (12.0-16.0); Imm Gran Abs Auto 0.02 X10*3/uL (0.00-0.03); Imm Gran Pct Auto 0.3 % (0.0-0.4); Lymphocytes Absolute Auto 1.8 X10*3/uL (1.2-4.9); Mean Corpuscular HGB Conc 32.4 g/dl (31.0-35.0); Mean Corpuscular Hemoglobin 32.2 pg (27.0-33.0); Mean Corpuscular Volume 99.3 fL (80.0-98.0); Mean Platelet Volume 9.8 fL (9.4-12.3); Monocytes Absolute Auto 0.4 X10*3/uL (0.1-1.2); Monocytes Percent Auto 6.6 % (2-11); Neutrophils Absolute Auto 4.2 x10*3/uL (2.0-8.3); Neutrophils Percent Auto 64.8 % (45-73); Platelet Count 246 X10*3/uL (160-400); Red Blood Count 4.01 X10*6/uL (4.20-5.50); Red Cell Distribution Width 12.8 % (11.0-16.0); White Blood Count 6.5 X10*3/uL (4.8-10.8)
[2022-02-28 12:23] LABS: Alanine Aminotransferase 17 U/L (0-31); Albumin Level 4.6 g/dL (3.5-5.0); Alkaline Phosphatase 72 U/L (39-117); Anion Gap 17 (12-20); Aspartate Amino Transferase 21 U/L (5-31); Bilirubin Total 0.6 mg/dL (0.0-1.0); Blood Urea Nitrogen 25 mg/dL (9-16); Carbon Dioxide 28 mmol/L (22-29); Chloride 99 mmol/L (96-108); Cholesterol 285 mg/dL; Estimated Glomerular Filt Rate 57; Glucose Random 102 mg/dL (60-115); HDL Cholesterol 49 mg/dL; LDL Cholesterol Calculated 202 mg/dl; Potassium 3.5 mmol/L (3.3-5.1); Sodium 140 mmol/L (135-145); Total Protein 7.2 g/dL (6.5-8.0); Triglycerides 172 mg/dL
== END 2022-02-28 10:56 | disposition home or self-care (01) ==
LOC: HO.LAB 10:55
PROVIDERS: PCP Internal Medicine; Visit Provider Internal Medicine
DX: E78.00 Pure hypercholesterolemia, unspecified (principal); J45.909 Unspecified asthma, uncomplicated; M65.4 Radial styloid tenosynovitis [de Quervain]; M79.642 Pain in left hand
CPT/HCPCS: 36415; 80053; 80061; 85025

== ENCOUNTER → 2022-04-03 13:26 | Outpatient (BNVA) | payer MEDICARE, MEDICAID, SELFPAY | PROVIDERS: PCP Internal Medicine; Visit Provider Surgery | DX: C50.912 Malignant neoplasm of unspecified site of left female breast (principal) | CPT/HCPCS: 99212 ==

== ENCOUNTER 2022-04-04 11:07 | Emergency (ER) | payer MEDICARE, MEDICAID, SELFPAY ==
--- NOTE | ~2022-04-04 | XR_ITS ---
EXAMINATION: XR CHEST CLINICAL INFORMATION: Bradycardia. COMPARISON: 06/10/2021 chest radiograph. TECHNIQUE: Frontal view of the chest was obtained. FINDINGS: No significant abnormality is noted involving the heart, lungs, mediastinum, bony thorax or soft tissues. XR/XR chest 1V IMPRESSION: No acute cardiopulmonary process.
[2022-04-04 11:24] VITALS: BP 167/83; PULSE 77; RESP 19; TEMP 36.6; O2SAT 97; BMI 34.0
--- NOTE | 2022-04-04 11:27 | ECG_ITS ---
Test Reason : asthma Blood Pressure : / mmHG Vent. Rate : 067 BPM Atrial Rate : 067 BPM P-R Int : 136 ms QRS Dur : 064 ms QT Int : 408 ms P-R-T Axes : 019 -02 -03 degrees QTc Int : 431 ms Normal sinus rhythm Low voltage QRS Possible Inferior infarct (cited on or before 16-FEB-2019) Abnormal ECG When compared with ECG of 16-FEB-2019 06:53, Nonspecific T wave abnormality, improved in Anterior leads Referred By: Generic ED Physician Electronically Signed By:ANGEL NEWTON MD
[2022-04-04 11:48] LABS: MANUAL DIFF FLAG NO
[2022-04-04 11:49] LABS: Basophils Percent Auto 0.2 % (0-2); Hematocrit 34.6 % (37.0-47.0); Hemoglobin 11.2 g/dl (12.0-16.0); Imm Gran Abs Auto 0.01 X10*3/uL (0.00-0.03); Imm Gran Pct Auto 0.2 % (0.0-0.4); Lymphocytes Absolute Auto 1.4 X10*3/uL (1.2-4.9); Lymphocytes Percent Auto 25.5 % (20-40); Mean Corpuscular HGB Conc 32.4 g/dl (31.0-35.0); Mean Corpuscular Hemoglobin 32.5 pg (27.0-33.0); Mean Corpuscular Volume 100.3 fL (80.0-98.0); Mean Platelet Volume 9.3 fL (9.4-12.3); Monocytes Absolute Auto 0.4 X10*3/uL (0.1-1.2); Monocytes Percent Auto 6.7 % (2-11); Neutrophils Absolute Auto 3.7 x10*3/uL (2.0-8.3); Neutrophils Percent Auto 67.4 % (45-73); Platelet Count 185 X10*3/uL (160-400); Red Blood Count 3.45 X10*6/uL (4.20-5.50); Red Cell Distribution Width 13.7 % (11.0-16.0); White Blood Count 5.5 X10*3/uL (4.8-10.8)
[2022-04-04 12:02] LABS: Anion Gap 16 (12-20); Blood Urea Nitrogen 10 mg/dL (9-16); Calcium 9.7 mg/dL (8.4-10.2); Carbon Dioxide 27 mmol/L (22-29); Chloride 105 mmol/L (96-108); Creatinine Clr Calc Pharmacy 66.5; Estimated Glomerular Filt Rate > 60; Glucose Random 102 mg/dL (60-115); Potassium 3.7 mmol/L (3.3-5.1); Sodium 144 mmol/L (135-145)
[2022-04-04 12:10] LABS: Troponin-I High Sensitivity 31.5 ng/L (<3.5-17.0)
--- NOTE | 2022-04-04 12:21 | ED_ITS ---
HPI - General Adult General Chief complaint: General Medical Stated complaint: asthma/diff. breathing Time Seen by Provider: 04/04/22 12:19 Source: patient Mode of arrival: ambulatory History of Present Illness HPI narrative: 66-year-old female with a past medical history of arthritis, asthma, breast CA, HLD, HTN on HCTZ, presenting to the ED complaining of elevated BP readings at home 180s over 130s. Admits to taking antihypertensive today, not missing any doses. Denies any symptoms. Denies headache, vision change/loss, numbness, tingling, lightheadedness/dizziness, CP/SOB, pedal edema. Denies taking anticoagulation Onset (ago): hour(s) Related Data Home Medications Medication Instructions Recorded Confirmed albuterol sulfate 2.5 mg/3 mL 2.5 mg inhalation Q4-6H 03/05/20 04/03/22 (0.083 %) solution for nebulization albuterol sulfate 90 mcg/actuation 90 mcg inhalation DAILY 03/05/20 04/03/22 aerosol inhaler atorvastatin 40 mg tablet 40 mg PO BEDTIME 03/05/20 04/03/22 ipratropium bromide 0.02 % 1 mcg inhalation DAILY PRN Wheezing 03/05/20 04/03/22 solution for inhalation ipratropium bromide 17 2 puff inhalation QID 03/05/20 04/03/22 mcg/actuation HFA aerosol inhaler loratadine 10 mg tablet 10 mg PO DAILY 03/05/20 04/03/22 fluticasone propionate 50 50 mcg intranasal DAILY 03/16/20 04/03/22 mcg/actuation nasal spray,suspension ibuprofen 600 mg tablet 600 mg PO TID PRN Pain 03/16/20 04/03/22 Previous Rx's Medication Instructions Recorded hydrochlorothiazide 25 mg tablet 25 mg PO DAILY #30 tabs 10/03/20 fluticasone 500 mcg-salmeterol 50 1 ea PO BID #60 caps 10/17/20 mcg/dose blistr powdr for inhalation (Advair Diskus) celecoxib 200 mg capsule (Celebrex) 200 mg PO BID 30 days #60 caps 12/12/20 letrozole 2.5 mg tablet 2.5 mg PO DAILY #90 tabs 02/04/21 ondansetron 4 mg disintegrating 4 mg PO Q6-8H PRN nausea and 06/10/21 tablet vomiting #7 tabs cyanocobalamin (vitamin B-12) 1,000 mcg PO DAILY #90 tabs 02/04/22 1,000 mcg tablet (Vitamin B-12) Allergies Allergy/AdvReac Type Severity Reaction Status Date / Time morphine [MORPHINE] Allergy Unknown STATES Verified 04/03/22 13:38 TABLET FORM CAUSES SHAKING Review of Systems Review of Systems: Constitutional: No Fever, No Chills, No Night Sweats, No Fatigue, No Malaise ENT/Mouth: No Ear Pain, No Nasal Congestion, No sore throat, No Rhinorrhea, No Swallowing Difficulty Eyes: No Eye Pain, No Swelling, No Redness, No Vision Changes Cardiovascular: No Chest Pain, No SOB, No Dyspnea on Exertion, No Orthopnea, No Edema, No Palpitations Respiratory: No Cough, No Sputum, No Dyspnea Gastrointestinal: No Nausea, No Vomiting, No Diarrhea, No Constipation, No Abdominal pain Genitourinary: No Dysuria, No Urinary Frequency, No Hematuria, No Urinary Incontinence/retention, No Flank Pain Musculoskeletal: No joint pain, No Myalgias, No Joint Swelling Skin: No Skin Lesions, No rash Neuro: No Weakness, No Numbness, No Paresthesias, No Loss of Consciousness, No Dizziness, No Headache Yes all other systems are reviewed and are negative Constitutional: Constitutional: Reports as per HPI Neurologic: Denies Abnormal speech present [facility] Past Medical History Attestation statement: The following information was validated with the patient. Medical History Abnormal mammogram of left breast Arthritis Asthma Breast cancer History of high cholesterol HTN (hypertension) Surgical History History of lumpectomy of left breast Family History Family History Mother Arthritis Alzheimer disease Social History Social History Are you a primary housekeeper child care to a significant other at home: No Alcohol intake: never Patient Tobacco Use Status: Never used Tobacco Advance Directives: No Current occupational status: unemployed Current occupation: rt hand Physical Exam ED Vital Signs: Vital Signs - 24 hr 04/04/22 11:24 04/04/22 13:05 04/04/22 17:25 Temperature 98 F 98.6 F Pulse Rate 77 63 65 Respiratory Rate 19 16 16 Blood Pressure 167/83 H 144/79 H 149/82 H Pulse Oximetry 97 96 97 Oxygen Delivery Method Room Air Room Air Room Air BMI result Body Mass Index 34.0 Const General: cooperative, healthy appearing, no acute distress, alert and awake Orientation/consciousness: patient oriented x3 Limitations: no limitations HENMT Head: Yes normal to inspection and Yes atraumatic Ears: hearing grossly normal bilaterally General nose exam: Normal external nose present Face and sinus: Yes normal facial exam Throat: Yes posterior oropharynx normal, Yes tonsils normal and Yes uvula midline Eyes General: appearance normal, both eyes and all related structures Pupils: Equal, round and reactive pupils present EOM: EOMs intact bilaterally Neck Neck: Yes normal visual inspection and Yes no meningeal signs Resp Effort & Inspection: normal respiratory effort and no respiratory distress Auscultation: clear to auscultation bilaterally, no crackles, no rales, no rhonchi and no wheezes Cardio Rate: regular rate Heart sounds: S1 normal heart sound present and S2 normal heart sound present GI Inspection: Yes normal to inspection Palpation (GI): Soft to palpation, nontender, no guarding and not rigid Skin Rashes: no rashes Wounds: no wounds Neuro General: patient oriented x3, gait normal, tone normal, moves all extremities, no meningeal signs, no focal motor deficits and CN's II-XI intact bilaterally Cranial nerves: Yes Equal, round and reactive pupils present Cognition (Neuro): normal cognition Speech: No Abnormal speech present Gait exam (Neuro): Normal gait present Motor exam (neuro): 5/5 motor strength present throughout, Pronator motor function not present and no tremor noted Coordination: [id number] test normal Romberg Test: Negative Extrem General: Yes normal to inspection Course Course Course Narrative: -no leukocytosis. H&H stable. AST/ALT mildly elevated. Initial troponin 31.5 > will obtain 3 hour repeat XR chest 1V IMPRESSION: No acute cardiopulmonary process. -1809--repeat troponin without 50% rise, MS unlikely. blood pressure has been okay since ED arrival. Recommended compliance with medications and very close PCP follow up. Discussed with patient in motor vehicle parts interpreter will not be adjusting BP medications today in the emergency department. Results discussed with patient including worrisome signs and symptoms and strict return precautions, and when to return to the emergency department. They verbalized understanding and feel safe for discharge at this time. Medical Decision Making MDM Narrative Medical decision making narrative: 66-year-old female with a past medical history of arthritis, asthma, breast CA, HLD, HTN on HCTZ, presenting to the ED complaining of elevated BP readings at home 180s over 130s. Admits to taking antihypertensive today, not missing any doses. Denies any symptoms at present. On exam normotensive, asymptomatic, NAD, nontoxic appearing, no focal neuro deficits. Concern for hypertension vs ?Noncompliance. Low suspicion for hypertensive urgency/emergency Plan: EKG, labs, CXR Medical Records Medical records reviewed: Yes I reviewed the patient's medical records. Lab Data Lab results reviewed: Yes I reviewed the patient's lab results. Result diagrams: 04/04/22 11:43 04/04/22 11:43 Labs: Lab Results 04/04/22 04/04/22 04/04/22 Range/Units 11:43 11:43 11:43 WBC 5.5 (4.8-10.8) X10*3/uL RBC 3.45 L (4.20-5.50) X10*6/uL Hgb 11.2 L (12.0-16.0) g/dl Hct 34.6 L (37.0-47.0) % MCV 100.3 H (80.0-98.0) fL MCH 32.5 (27.0-33.0) pg MCHC 32.4 (31.0-35.0) g/dl RDW 13.7 (11.0-16.0) % Plt Count 185 (160-400) X10*3/uL MPV 9.3 L (9.4-12.3) fL Immature Gran % (Auto) 0.2 (0.0-0.4) % Neut % (Auto) 67.4 (45-73) % Lymph % (Auto) 25.5 (20-40) % [place] % (Auto) 6.7 (2-11) % Eos % (Auto) 0.0 (0-4) % Baso % (Auto) 0.2 (0-2) % Lymph # (Auto) 1.4 (1.2-4.9) X10*3/uL [place] # (Auto) 0.4 (0.1-1.2) X10*3/uL Eos # (Auto) 0.0 (0.0-0.4) X10*3/uL Baso # (Auto) 0.0 (0.0-0.2) X10*3/uL Abs Immat Gran (auto) 0.01 (0.00-0.03) X10*3/uL Absolute Neuts (auto) 3.7 (2.0-8.3) x10*3/uL Absolute Nucleated RBC 0.000 (0.0-0.012) X10*3/uL Nucleated RBC % (auto) 0.0 (0.0-0.2) /100WBC Sodium 144 (135-145) mmol/L Potassium 3.7 (3.3-5.1) mmol/L Chloride 105 (96-108) mmol/L Carbon Dioxide 27 (22-29) mmol/L Anion Gap 16 (12-20) BUN 10 D (9-16) mg/dL Creatinine 0.87 (0.5-1.4) mg/dL Estim Creat Clear Calc 66.5 Estimated GFR > 60 Random Glucose 102 (60-115) mg/dL Calcium 9.7 (8.4-10.2) mg/dL Magnesium 1.9 (1.6-2.6) mg/dL Total Bilirubin 0.7 (0.0-1.0) mg/dL Direct Bilirubin 0.2 (0.0-0.5) mg/dL AST 37 H D (5-31) U/L ALT 40 H (0-31) U/L Alkaline Phosphatase 67 (39-117) U/L Troponin I High Sens (<3.5-17.0) ng/L Total Protein 6.4 L (6.5-8.0) g/dL Albumin 4.2 (3.5-5.0) g/dL COVID-19 ([facility]O) Negative (Negative) COVID-19 Clin Com See Note 04/04/22 04/04/22 Range/Units 11:43 17:30 WBC (4.8-10.8) X10*3/uL RBC (4.20-5.50) X10*6/uL Hgb (12.0-16.0) g/dl Hct (37.0-47.0) % MCV (80.0-98.0) fL MCH (27.0-33.0) pg MCHC (31.0-35.0) g/dl RDW (11.0-16.0) % Plt Count (160-400) X10*3/uL MPV (9.4-12.3) fL Immature Gran % (Auto) (0.0-0.4) % Neut % (Auto) (45-73) % Lymph % (Auto) (20-40) % [place] % (Auto) (2-11) % Eos % (Auto) (0-4) % Baso % (Auto) (0-2) % Lymph # (Auto) (1.2-4.9) X10*3/uL [place] # (Auto) (0.1-1.2) X10*3/uL Eos # (Auto) (0.0-0.4) X10*3/uL Baso # (Auto) (0.0-0.2) X10*3/uL Abs Immat Gran (auto) (0.00-0.03) X10*3/uL Absolute Neuts (auto) (2.0-8.3) x10*3/uL Absolute Nucleated RBC (0.0-0.012) X10*3/uL Nucleated RBC % (auto) (0.0-0.2) /100WBC Sodium (135-145) mmol/L Potassium (3.3-5.1) mmol/L Chloride (96-108) mmol/L Carbon Dioxide (22-29) mmol/L Anion Gap (12-20) BUN (9-16) mg/dL Creatinine (0.5-1.4) mg/dL Estim Creat Clear Calc Estimated GFR Random Glucose (60-115) mg/dL Calcium (8.4-10.2) mg/dL Magnesium (1.6-2.6) mg/dL Total Bilirubin (0.0-1.0) mg/dL Direct Bilirubin (0.0-0.5) mg/dL AST (5-31) U/L ALT (0-31) U/L Alkaline Phosphatase (39-117) U/L Troponin I High Sens 31.5 H 44.9 H (<3.5-17.0) ng/L Total Protein (6.5-8.0) g/dL Albumin (3.5-5.0) g/dL COVID-19 ([facility]) (Negative) COVID-19 Clin Com ECG Data Attestation: I personally reviewed and interpreted this ECG as follows: Prior ECG tracings: available for review Interpretation: EKG normal sinus rhythm at a rate of 67. Peer an oval 136. QTC 431. When compared to prior EKGs nonspecific T-wave abnormality present. No STEMI Discharge Plan Discharge Clinical Impression: HTN (hypertension) Patient Disposition: Home, Self-Care Instructions: Heart Healthy Diet (ED), Hypertension (ED) Additional Instructions: Your blood pressures been okay since he arrived in the emergency department. It is elevated however nothing but needs to be done in the emergency room, you need to have very close follow-up with her primary care doctor. If you develop headache, chest pain, shortness of breath, lightheadedness/dizziness return to the ED immediately Bill presi?n arterial singer estado lizandro desde que lleg? al departamento de emergencias. Es elevado, sin embargo, solo necesita hacerse en la mario de emergencias, debe tener un seguimiento muy cercano con bill m?dico de atenci?n primaria. Si desarrolla dolor de zoë, dolor en el pecho, dificultad para respirar, aturdimiento/mareos, regrese al servicio de urgencias de inmediato. Prescriptions: No Action fluticasone propion-salmeterol [Advair Diskus] 500-50 mcg/dose blister with device 1 ea PO BID Qty: 60 3RF celecoxib [Celebrex] 200 mg capsule 200 mg PO BID 30 Days Qty: 60 3RF letrozole 2.5 mg Tablet 2.5 mg PO DAILY Qty: 90 3RF cyanocobalamin (vitamin B-12) [Vitamin B-12] 1,000 mcg Tablet 1,000 mcg PO DAILY Qty: 90 3RF hydrochlorothiazide 25 mg tablet 25 mg PO DAILY Qty: 30 0RF ondansetron 4 mg tablet,disintegrating 4 mg PO Q6-8H PRN (Reason: nausea and vomiting) Qty: 7 0RF ipratropium bromide 0.02 % solution 1 mcg inhalation DAILY PRN (Reason: Wheezing) loratadine 10 mg tablet 10 mg PO DAILY ipratropium bromide 17 mcg/actuation HFA aerosol inhaler 2 puff inhalation QID albuterol sulfate 90 mcg/actuation HFA aerosol inhaler 90 mcg inhalation DAILY albuterol sulfate 2.5 mg /3 mL (0.083 %) solution for nebulization 2.5 mg inhalation Q4-6H atorvastatin 40 mg tablet 40 mg PO BEDTIME fluticasone propionate 50 mcg/actuation spray,suspension 50 mcg intranasal DAILY ibuprofen 600 mg tablet 600 mg PO TID PRN (Reason: Pain) Referrals: Ashley Villasenor MD [Primary Care Provider] - 2 days Print Language: Moroccan
[2022-04-04 12:28] LABS: COVID-19 Test Negative (Negative); IDNOW Serial# 55D5AD1C
[2022-04-04 12:44] LABS: Alanine Aminotransferase 40 U/L (0-31); Albumin Level 4.2 g/dL (3.5-5.0); Alkaline Phosphatase 67 U/L (39-117); Aspartate Amino Transferase 37 U/L (5-31); Bilirubin Direct 0.2 mg/dL (0.0-0.5); Bilirubin Total 0.7 mg/dL (0.0-1.0); Magnesium 1.9 mg/dL (1.6-2.6); Total Protein 6.4 g/dL (6.5-8.0)
[2022-04-04 13:05] VITALS: BP 144/79; PULSE 63; RESP 16; O2SAT 96
--- NOTE | 2022-04-04 13:13 | PC.NURSE ---
pt. resting comfortably. a little anxious about antonieta bp. BP 144/79. HR [address] monitor ns.
[2022-04-04 17:25] VITALS: BP 149/82; PULSE 65; RESP 16; TEMP 37; O2SAT 97
[2022-04-04 18:05] LABS: Troponin-I High Sensitivity 44.9 ng/L (<3.5-17.0)
[2022-04-04 18:39] VITALS: BP 148/82; PULSE 62; RESP 16; TEMP 36.8; O2SAT 98
== END 2022-04-04 18:41 | disposition home or self-care (01) ==
PROVIDERS: Physician Assistant; Emergency Provider Emergency Medicine Emergency Medical Services; PCP Internal Medicine
DX: J45.909 Unspecified asthma, uncomplicated (principal); R06.02 Shortness of breath; I10 Essential (primary) hypertension; Z20.822 Contact with and (suspected) exposure to COVID-19; Z79.899 Other long term (current) drug therapy
CPT/HCPCS: 36415; 71045; 80048; 80076; 83735; 84484; 85025; 87635; 93005; 99283; 99284

== ENCOUNTER 2022-04-14 12:13 | Outpatient (REF) | payer MEDICARE, MEDICAID, SELFPAY | END 2022-04-14 12:14 | disposition home or self-care (01) | LOC: HO.MDS 12:13 | PROVIDERS: PCP Internal Medicine; Visit Provider Internal Medicine Pulmonary Disease | DX: J45.50 Severe persistent asthma, uncomplicated (principal) | CPT/HCPCS: 96372; J0517 ==

== ENCOUNTER 2022-05-21 12:12 | Outpatient (REF) | payer MEDICARE, MEDICAID, SELFPAY ==
--- NOTE | ~2022-05-21 | MM_ITS ---
EXAMINATION: MM DIAGNOSTIC DIGITAL BREAST TOMOSYNTHESIS, BILATERAL CLINICAL INFORMATION: Left breast lumpectomy with DCIS in 2020. Screening right breast study. COMPARISON: Mammography: May 20, 2021 and studies dating back to October 18, 2015 TECHNIQUE: Digital breast tomosynthesis is performed in both the craniocaudal and mediolateral oblique views along with computer-aided detection (CAD). Synthesized 2D images are generated from the tomosynthesis. Additional spot magnification views of the left breast in craniocaudal and 90 degree mediolateral views performed. FINDINGS: The breasts are heterogeneously dense, which may obscure small masses (ACR BI-RADS breast composition Category c). There are no new significant masses, abnormal calcifications, or other abnormalities. Postsurgical changes seen about the lower inner aspect of the left breast. Results are discussed with the patient at time of visit. MM/MM tomosynthesis diagnostic BI IMPRESSION: There are no significant changes from prior study. ASSESSMENT: BI-RADS 2: Benign RECOMMENDATION: Diagnostic mammography at time of next annual exam, due in 12 months. This patient's information was entered into a reminder system with a target due date for their next mammogram.
== END 2022-05-21 12:13 | disposition home or self-care (01) ==
LOC: HO.MAMMO 12:12
PROVIDERS: PCP Internal Medicine; Visit Provider Internal Medicine
DX: D05.12 Intraductal carcinoma in situ of left breast (principal)
CPT/HCPCS: 77062; 77066

== ENCOUNTER → 2022-05-23 10:56 | Outpatient (BNVA) | payer MEDICARE, MEDICAID, SELFPAY | PROVIDERS: PCP Internal Medicine; Visit Provider Internal Medicine Pulmonary Disease | DX: J45.50 Severe persistent asthma, uncomplicated (principal); Z91.09 Other allergy status, other than to drugs and biological substances; Z79.899 Other long term (current) drug therapy | CPT/HCPCS: 99212 ==

== ENCOUNTER 2022-07-15 11:41 | Outpatient (REF) | payer MEDICARE, MEDICAID, SELFPAY | END 2022-07-15 11:42 | disposition home or self-care (01) | LOC: HO.MDS 11:41 | PROVIDERS: Visit Provider Internal Medicine Pulmonary Disease | DX: J45.50 Severe persistent asthma, uncomplicated (principal) | CPT/HCPCS: 96372; J0517 ==

== ENCOUNTER 2022-08-11 11:04 | Outpatient (REF) | payer MEDICARE, MEDICAID, SELFPAY ==
[2022-08-11 11:19] LABS: MANUAL DIFF FLAG NO
[2022-08-11 12:04] LABS: Basophils Percent Auto 0.2 % (0-2); Hematocrit 40.3 % (37.0-47.0); Hemoglobin 13.1 g/dl (12.0-16.0); Imm Gran Abs Auto 0.02 X10*3/uL (0.00-0.03); Imm Gran Pct Auto 0.2 % (0.0-0.4); Lymphocytes Absolute Auto 2.3 X10*3/uL (1.2-4.9); Lymphocytes Percent Auto 28.9 % (20-40); Mean Corpuscular HGB Conc 32.5 g/dl (31.0-35.0); Mean Corpuscular Hemoglobin 32.1 pg (27.0-33.0); Mean Corpuscular Volume 98.8 fL (80.0-98.0); Monocytes Absolute Auto 0.5 X10*3/uL (0.1-1.2); Monocytes Percent Auto 5.6 % (2-11); Neutrophils Absolute Auto 5.3 x10*3/uL (2.0-8.3); Neutrophils Percent Auto 65.1 % (45-73); Platelet Count 216 X10*3/uL (160-400); Red Blood Count 4.08 X10*6/uL (4.20-5.50); Red Cell Distribution Width 13.3 % (11.0-16.0); White Blood Count 8.1 X10*3/uL (4.8-10.8)
[2022-08-11 12:43] LABS: Alanine Aminotransferase 20 U/L (0-31); Albumin Level 4.6 g/dL (3.5-5.0); Alkaline Phosphatase 61 U/L (39-117); Anion Gap 13 (12-20); Aspartate Amino Transferase 21 U/L (5-31); Bilirubin Total 0.6 mg/dL (0.0-1.0); Blood Urea Nitrogen 21 mg/dL (9-16); Calcium 10.2 mg/dL (8.4-10.2); Carbon Dioxide 30 mmol/L (22-29); Chloride 104 mmol/L (96-108); Cholesterol 180 mg/dL; Estimated Glomerular Filt Rate 59; Glucose Random 104 mg/dL (60-115); HDL Cholesterol 59 mg/dL; LDL Cholesterol Calculated 95 mg/dl; Potassium 3.6 mmol/L (3.3-5.1); Sodium 143 mmol/L (135-145); Total Protein 6.9 g/dL (6.5-8.0); Triglycerides 133 mg/dL
== END 2022-08-11 11:05 | disposition home or self-care (01) ==
LOC: HO.LAB 11:04
PROVIDERS: PCP Internal Medicine; Visit Provider Internal Medicine
DX: E78.00 Pure hypercholesterolemia, unspecified (principal); F32.9 Major depressive disorder, single episode, unspecified; I10 Essential (primary) hypertension; Z85.3 Personal history of malignant neoplasm of breast
CPT/HCPCS: 36415; 80053; 80061; 85025

== ENCOUNTER 2022-09-16 12:26 | Outpatient (REF) | payer MEDICARE, MEDICAID, SELFPAY | END 2022-09-16 12:27 | disposition home or self-care (01) | LOC: HO.MDS 12:26 | PROVIDERS: Visit Provider Internal Medicine Pulmonary Disease | DX: J45.50 Severe persistent asthma, uncomplicated (principal) | CPT/HCPCS: 96372; J0517 ==

== ENCOUNTER → 2022-10-02 13:40 | Outpatient (BNVA) | payer MEDICARE, MEDICAID, SELFPAY | PROVIDERS: PCP Internal Medicine; Visit Provider Surgery ==

== ENCOUNTER → 2022-10-10 10:56 | Outpatient (BNVA) | payer MEDICARE, MEDICAID, SELFPAY | PROVIDERS: PCP Internal Medicine; Visit Provider Internal Medicine Pulmonary Disease | DX: J45.50 Severe persistent asthma, uncomplicated (principal); Z91.09 Other allergy status, other than to drugs and biological substances | CPT/HCPCS: 99212 ==

== ENCOUNTER → 2022-10-23 13:00 | Outpatient (BNVA) | payer MEDICARE, MEDICAID, SELFPAY | PROVIDERS: PCP Internal Medicine; Visit Provider Surgery | DX: C50.312 Malignant neoplasm of lower-inner quadrant of left female breast (principal); Z17.0 Estrogen receptor positive status [ER+] | CPT/HCPCS: 99212 ==

== ENCOUNTER 2022-11-18 12:00 | Outpatient (REF) | payer MEDICARE, MEDICAID, SELFPAY | END 2022-11-18 12:01 | disposition home or self-care (01) | LOC: HO.MDS 12:00 | PROVIDERS: Visit Provider Internal Medicine Pulmonary Disease | DX: J45.50 Severe persistent asthma, uncomplicated (principal) | CPT/HCPCS: 96372; J0517 ==

== ENCOUNTER 2023-02-16 13:31 | Outpatient (REF) | payer MEDICARE, MEDICAID, SELFPAY ==
--- NOTE | ~2023-02-16 | XR_ITS ---
EXAMINATION: XR LUMBOSACRAL SPINE XR SACROILIAC JOINTS XR SACRUM AND COCCYX CLINICAL INFORMATION: Pain. COMPARISON: None available. TECHNIQUE: Three views of the lumbosacral spine. 3 views of the sacroiliac joints. 2 views of the sacrum and 2 views of the coccyx were obtained. FINDINGS: Examination demonstrates mild multilevel disc degenerative change. Mild to moderate facet degenerative changes are most notable at L4-S1, with grade 1 anterolisthesis of L4 on L5. Vertebral body heights appear maintained. Mild lumbar dextrocurvature. No fracture is seen. No lytic or sclerotic bony lesion is identified. The SI joints and coccyx appear unremarkable. The paraspinal soft tissues appear unremarkable. XR/XR sacroiliac joint min 3V IMPRESSION: Mild degenerative change, as above.
--- NOTE | ~2023-02-16 | XR_ITS ---
EXAMINATION: XR LUMBOSACRAL SPINE XR SACROILIAC JOINTS XR SACRUM AND COCCYX CLINICAL INFORMATION: Pain. COMPARISON: None available. TECHNIQUE: Three views of the lumbosacral spine. 3 views of the sacroiliac joints. 2 views of the sacrum and 2 views of the coccyx were obtained. FINDINGS: Examination demonstrates mild multilevel disc degenerative change. Mild to moderate facet degenerative changes are most notable at L4-S1, with grade 1 anterolisthesis of L4 on L5. Vertebral body heights appear maintained. Mild lumbar dextrocurvature. No fracture is seen. No lytic or sclerotic bony lesion is identified. The SI joints and coccyx appear unremarkable. The paraspinal soft tissues appear unremarkable. XR/XR sacrum coccyx min 2V IMPRESSION: Mild degenerative change, as above.
--- NOTE | ~2023-02-16 | XR_ITS ---
EXAMINATION: XR LUMBOSACRAL SPINE XR SACROILIAC JOINTS XR SACRUM AND COCCYX CLINICAL INFORMATION: Pain. COMPARISON: None available. TECHNIQUE: Three views of the lumbosacral spine. 3 views of the sacroiliac joints. 2 views of the sacrum and 2 views of the coccyx were obtained. FINDINGS: Examination demonstrates mild multilevel disc degenerative change. Mild to moderate facet degenerative changes are most notable at L4-S1, with grade 1 anterolisthesis of L4 on L5. Vertebral body heights appear maintained. Mild lumbar dextrocurvature. No fracture is seen. No lytic or sclerotic bony lesion is identified. The SI joints and coccyx appear unremarkable. The paraspinal soft tissues appear unremarkable. XR/XR lumbar spine 2-3V IMPRESSION: Mild degenerative change, as above.
== END 2023-02-16 13:32 | disposition home or self-care (01) ==
LOC: HO.XRAY 13:31
PROVIDERS: PCP Internal Medicine; Visit Provider Internal Medicine
DX: M54.9 Dorsalgia, unspecified (principal)
CPT/HCPCS: 72100; 72202; 72220

== ENCOUNTER 2023-04-16 10:03 | Outpatient (AMB) | payer MEDICARE, MEDICAID, SELFPAY ==
[2023-04-16 10:16] VITALS: BP 122/74; PULSE 85; O2SAT 98; BMI 28.9
--- NOTE | 2023-04-16 10:16 | A.OFFVIS_ITS ---
Intake Vital Signs 04/16/23 10:16 Height 5 ft 4 in Weight 168 lb 10.458 oz BMI 28.9 BP 122/74 Blood Pressure Location Rt brachial Position Sitting Pulse 85 Pulse Source Doppler Pulse Oximetry (%) 98 Oxygen Delivery Method Room Air Intake Visit Reasons: asthma Patient Financial Specialist Required: Yes Patient Financial Specialist Name: Bernie Andrez Zaman Allergies morphine [MORPHINE] Allergy (Unknown, Verified 04/16/23 10:56) STATES TABLET FORM CAUSES SHAKING HPI asthma 2 HPI Details 67-year-old lady, lifetime nonsmoker, fo llowed for severe persistent allergic asthma? and environmental allergies.? She has missed her to Fasenra injections. But she does continue on Advair and albuterol MDI. She denies recent exacerbations. She would like to restart Fasenra. [facility] Medical History Abnormal mammogram of left breast Arthritis Asthma Breast cancer History of high cholesterol HTN (hypertension) Surgical History History of lumpectomy of left breast Family History Mother Arthritis Alzheimer disease Social History Are you a primary adult live in caregiver to a significant other at home: No Alcohol intake: never Patient Tobacco Use Status: Never used Tobacco Current occupational status: unemployed Current occupation: rt hand Female Reproductive History Menstrual Age of Menarche: 12 Review of Systems Const Denies daytime sleepiness, Denies excessive sweating, Denies fatigue, Denies fever(s), Denies lethargy, Denies malaise, Denies night sweats, Denies snoring and Denies weight loss Eyes Denies blurry vision and Denies itchy eyes ENT Denies nasal congestion, Denies post nasal drip, Denies sinus pain, Denies sinus pressure and Denies other ( Thrush) Card Denies chest pain, Denies pedal edema, Denies dyspnea, Denies orthopnea and Denies paroxysmal nocturnal dyspnea Resp Denies cough, Denies hemoptysis, Denies excessive phlegm production, Denies dyspnea, Denies snoring and Denies wheezing GI Denies abdominal pain and Denies heartburn Musc Denies myalgias, Denies arthralgias and Denies joint swelling Skin/Breast Denies rash Neuro Denies memory loss and Denies seizure-like activity Psych Denies abnormal sleep pattern, Denies anxiety and Denies memory loss Endo Denies excessive sweating, Denies fatigue and Denies heat intolerance Alan/Lymph Denies easy bruising Aller/Immun Denies itchy eyes, Denies seasonal rhinorrhea and Denies wheezing Physical Exam Vital Signs: Last Vital Signs Pulse 85 04/16/23 10:16 BP 122/74 04/16/23 10:16 Pulse Ox 98 04/16/23 10:16 Oxygen Delivery Method Room Air 04/16/23 10:16 BMI result Body Mass Index 28.9 Const General: no acute distress and alert Nutritional Appearance: not obese Orientation/consciousness: Other orientation findings ( oriented) HEENT Head: Yes atraumatic Eyes General: appearance normal, both eyes and all related structures Sclerae: sclerae normal EOM: EOMs intact bilaterally Neck Neck: Yes supple Lymphatic: no lymphadenopathy noted Resp Effort & Inspection: normal respiratory effort and no use of accessory muscles Auscultation: clear to auscultation bilaterally Cardio Rate: regular rate Rhythm: regular rhythm Heart sounds: no gallops, no murmurs and no rubs Skin General skin exam: other ( warm) Extrem General: No clubbing, No cyanosis and No edema Assessment & Plan Assessment & Plan (1) Severe persistent allergic asthma: Code(s): J45.50 - Severe persistent asthma, uncomplicated Plan: Worsening control of%. Restart Fasenra. Continue Advair and albuterol MDI. (2) Environmental allergies: Code(s): Z91.09 - Other allergy status, other than to drugs and biological substances Plan: Expect to improve with restarting Fasenra. Coding Level of Care Code Est Pt Level 4 (36527) Diagnoses Severe persistent allergic asthma J45.50 Environmental allergies Z91.09
== END 2023-04-16 11:06 | disposition home or self-care (01) ==
PROVIDERS: PCP Internal Medicine; Visit Provider Internal Medicine Pulmonary Disease
DX: J45.50 Severe persistent asthma, uncomplicated (principal); Z91.09 Other allergy status, other than to drugs and biological substances
CPT/HCPCS: 99214

== ENCOUNTER 2023-04-16 11:12 | Outpatient (REF) | payer MEDICARE, MEDICAID, SELFPAY | END 2023-04-16 11:13 | disposition home or self-care (01) | LOC: HO.MDS 11:12 | PROVIDERS: Visit Provider Internal Medicine Pulmonary Disease | DX: J45.50 Severe persistent asthma, uncomplicated (principal); Z91.09 Other allergy status, other than to drugs and biological substances | CPT/HCPCS: 96372; 99212; J0517 ==

== ENCOUNTER 2023-05-05 13:39 | Outpatient (AMB) | payer MEDICARE, MEDICAID, SELFPAY ==
--- NOTE | 2023-05-05 14:06 | MHC.OFFVIS ---
Intake Vital Signs 05/05/23 14:07 Height 5 ft 4 in Weight 165 lb 5.547 oz BMI 28.4 BP 122/82 Blood Pressure Location Lt brachial Position Sitting Intake Visit Reasons: 6m breast exam Intake Note: Patient is seen in office for 6 month follow up visit, breast exam. Pt c/o: left breast pain since last night, denies lump, bump, discharge, redness or other concerns mm scheduled: 05/21/23 Application Systems Engineer Required: No Bereavement Program Coordinator: Bereavement Program Coordinator Present Accompanied by: Self / Same As Patient Allergies morphine [MORPHINE] Allergy (Unknown, Verified 05/05/23 14:12) STATES TABLET FORM CAUSES SHAKING Medication List - Last Reconciled 05/05/23 by Chris Christy MD albuterol sulfate 2.5 mg inhalation Q4-6H albuterol sulfate 90 mcg/actuation 90 mcg inhalation DAILY atorvastatin 40 mg PO BEDTIME celecoxib (Celebrex) 200 mg PO BID 30 days cyanocobalamin (vitamin B-12) (Vitamin B-12) 1,000 mcg PO DAILY fluticasone propion-salmeterol 500-50 mcg/dose (Advair Diskus) 1 ea PO BID fluticasone propionate 110 mcg/actuation (Flovent HFA) 2 puffs inhalation BID hydrochlorothiazide 25 mg PO DAILY ibuprofen 600 mg PO TID PRN ipratropium bromide 17 mcg/actuation 2 puffs inhalation QID ipratropium bromide 1 mcg inhalation DAILY PRN letrozole 2.5 mg PO DAILY loratadine 10 mg PO DAILY melatonin 5 mg PO BEDTIME omeprazole 40 mg PO DAILY ondansetron 4 mg PO Q6-8H PRN triamcinolone acetonide 0.5% 1 appl topical BID HPI HPI Comments History of Present Illness Details 67-year-old female patient initially presenting on 07/29/2020 for evaluation of a mammogram and ultrasound of 07/17/2020 which revealed a suspicious irregular hypoechoic mass in the lower inner quadrant of left breast at approximately the 8 o'clock position.? The lesion measured 1.5 cm in greatest dimension.? This was felt to be high suspicion for malignancy BI-RADS 4 C and an ultrasound-guided core biopsy was recommended.? She denied any palpable mass, pain, skin change, or nipple discharge on self-examination.? She denied a previous history of breast problems or breast surgery.? Her family history is also negative for breast cancer.? She is 7 para 6, breast fed her children, LMP was at 50 years old; she denies hormone replacement or control.? She denies a tobacco history, exposure to radiation therapy, or Ashkenazi heritage.? She underwent an ultrasound-guided core biopsy at the [facility] on 07/26/2020. Pathology revealed:? Invasive ductal carcinoma, MSBR grade 3.? ER/NV+, HER2 -. ? On 08/09/2020 she underwent Left breast lumpectomy with needle localization, left axillary sentinel node biopsy. Final pathology: A.? Breast, left, lumpectomy: - Invasive ductal carcinoma, MSBR grade 3, 1.6 cm; positive anterior margin. - Ductal carcinoma in situ, focal, with necrosis, nuclear grade 3; margins negative. B.? Lymph node, sentinel #1, excision:? One lymph node negative for metastatic carcinoma. C.? Lymph node, sentinel #2, excision:? One lymph node negative for metastatic carcinoma. D.? Lymph node, additional axillary tissue, excision:? Two lymph nodes negative for metastatic carcinoma. E.? Breast, left anterosuperior margin, excision:? Benign breast tissue with fibrocystic changes; no residual carcinoma seen. TNM: pT1c N0(sn)(i-) She was evaluated by Dr. Cobb on 09/05/2020.? The Oncotype DX recurrence score was 24 with the risk of distant recurrence at 9 years determined to be 10% in the benefit of chemotherapy felt to be less than 1%.? Adjuvant chemotherapy was therefore deferred and radiation therapy evaluation initiated.? She was evaluated by Dr. Ac at [facility] And underwent radiation therapy which she tolerated well.? She reports developing darkening of the skin but denies any bleeding or discharge.? She has some soreness especially in the bottom of the breast related to the radiation therapy but denies any new symptoms. ? She reports occasional fluttering sensation in her left breast currently. Her most recent mammogram dated 05/21/2022 revealed no significant changes from the prior mammogram (BI-RADS 2). She is scheduled for diagnostic mammogram in 06/12/2023 at the [facility]. She continues to complain of pain in the left breast but denies any palpable mass. She is also complaining of sciatica pain which started 3 months ago. [facility] Medical History Breast cancer History of high cholesterol Asthma HTN (hypertension) Arthritis Abnormal mammogram of left breast Surgical History History of lumpectomy of left breast Family History Mother Arthritis Alzheimer disease Social History Are you a primary manager home healthcare to a significant other at home: No Alcohol intake: never Patient Tobacco Use Status: Never used Tobacco Current occupational status: unemployed Current occupation: rt hand Female Reproductive History Menstrual Age of Menarche: 12 Review of Systems Const Denies chills, Denies fever(s), Denies headache(s) and Denies poor appetite ENT Denies dizziness and Denies headache(s) Card Denies chest pain, Denies rapid heart rate, Denies palpitations and Denies slow heart rate Resp Denies chest congestion, Denies cough, Denies pain on inspiration and Denies wheezing GI Denies abdominal pain, Denies bloating, Denies change in stool character, Denies constipation, Denies diarrhea, Denies nausea, Denies vomiting and Denies hematemesis Denies nipple discharge Musc Details: Sciatic pain down left leg Reports back pain, Denies arthralgias, Denies joint swelling and Denies numbness Skin/Breast Reports breast skin changes, Reports breast pain, Denies breast mass, Denies change in breast shape, Reports change in pigmentation, Denies nipple discharge, Denies erythema and Denies rash Neuro Denies dizziness, Denies headache(s) and Denies numbness Psych Denies anxiety and Denies depression Endo Denies palpitations Alan/Lymph Denies easy bleeding, Denies easy bruising and Denies lymphadenopathy Aller/Immun Denies wheezing Physical Exam Vital Signs: Last Vital Signs BP 122/82 05/05/23 14:07 BMI result Body Mass Index 28.4 Const General: cooperative, healthy appearing, comfortable, no acute distress, well developed, alert and awake Chest Other: Left breast incision in the upper outer quadrant is clean, dry, and intact without redness. Breast tissue is soft with no palpable mass. No skin change, nipple discharge or palpable lymph nodes are appreciated. Right breast with no skin change, nipple discharge, palpable mass, or enlarged lymph nodes. nipple retraction noted. Resp Effort & Inspection: normal respiratory effort Skin Other: Warm, dry, no rash Extrem General: Yes no clubbing, cyanosis or edema Assessment & Plan Assessment & Plan (1) Invasive ductal carcinoma of left breast, stage 1: Code(s): C50.912 - Malignant neoplasm of unspecified site of left female breast Plan 67-year-old female patient returning for follow-up breast examination with a history of infiltrating ductal carcinoma of the left breast S/P left breast lumpectomy with sentinel node biopsy. She reports some increased sensitivity in the left breast but denies any new breast symptoms. Her most recent mammogram of 05/21/2022 revealed no significant changes from the prior mammogram (BI-RADS 2). A diagnostic bilateral mammogram is scheduled for 06/12/2023. I recommended she return in 6 months was for follow-up examination. Coding Level of Care Code Est Pt Level 3 (91498) Diagnoses Invasive ductal carcinoma of left breast, stage 1 C50.912
[2023-05-05 14:07] VITALS: BP 122/82; BMI 28.4
== END 2023-05-05 14:26 | disposition home or self-care (01) ==
PROVIDERS: PCP Internal Medicine; Visit Provider Surgery
DX: C50.912 Malignant neoplasm of unspecified site of left female breast (principal)
CPT/HCPCS: 99213

== ENCOUNTER → 2023-05-05 13:39 | Outpatient (BNVA) | payer MEDICARE, MEDICAID, SELFPAY | PROVIDERS: PCP Internal Medicine; Visit Provider Surgery | DX: C50.912 Malignant neoplasm of unspecified site of left female breast (principal) | CPT/HCPCS: 99212 ==

== ENCOUNTER 2023-05-21 10:58 | Outpatient (REF) | payer MEDICARE, MEDICAID, SELFPAY ==
--- NOTE | ~2023-05-21 | MM_ITS ---
EXAMINATION: MM DIAGNOSTIC DIGITAL BREAST TOMOSYNTHESIS, BILATERAL CLINICAL INFORMATION: Year 2 follow-up left breast lumpectomy for left lumpectomy with DCIS in 2020. COMPARISON: Mammography: 05/21/2022, 05/20/2021, and dating back to 2019. TECHNIQUE: Digital breast tomosynthesis is performed in both the craniocaudal and mediolateral oblique views along with computer-aided detection (CAD). Synthesized 2D images are generated from the tomosynthesis. In addition to standard views, spot magnification views of the lumpectomy site in the left breast was also included. FINDINGS: There are scattered areas of fibroglandular density (ACR BI-RADS breast composition Category b). Similar postoperative changes to the lower inner left breast, with no evidence of recurrence of disease. Stable scarring traveling transversely over the slightly inferior outer breast. There are a few scattered benign type calcifications in both breasts. There are no suspicious masses, suspicious grouped calcifications, or areas of architectural distortion in either breast. The parenchymal pattern is stable from prior exams. MM/MM tomosynthesis diagnostic BI IMPRESSION: There are no significant changes from prior study. Stable benign postoperative changes to the inferior medial left breast. Recommend one-year follow-up to complete three-year surveillance. ASSESSMENT: BI-RADS BI-RADS 2 - Benign Findings RECOMMENDATION: 1 year F/U Results were provided to the patient at time of visit by the technologist. This patient's information was entered into a reminder system with a target due date for their next mammogram.
== END 2023-05-21 10:59 | disposition home or self-care (01) ==
LOC: HO.MAMMO 10:58
PROVIDERS: PCP Internal Medicine; Visit Provider Internal Medicine
DX: Z85.3 Personal history of malignant neoplasm of breast (principal)
CPT/HCPCS: 77062; 77066

== ENCOUNTER → 2023-05-21 11:30 | Outpatient (BNV) | payer MEDICARE, MEDICAID, SELFPAY | PROVIDERS: PCP Internal Medicine; Visit Provider Radiology Diagnostic Radiology | DX: Z85.3 Personal history of malignant neoplasm of breast (principal) | CPT/HCPCS: 77062; 77066 ==

== ENCOUNTER 2023-12-08 12:21 | Outpatient (AMB) | payer MEDICARE, MEDICAID, SELFPAY ==
[2023-12-08 13:04] VITALS: BP 140/70; PULSE 73; BMI 28.1
--- NOTE | 2023-12-08 13:04 | A.OFFVIS_ITS ---
Vital Signs 12/08/23 13:04 Height 5 ft 4 in Weight 164 lb BMI 28.1 BP 140/70 H Blood Pressure Location Lt brachial Position Sitting Pulse 73 Intake Visit Reasons: 6 month breast exam Intake Note: Patient is seen in office for 6 month follow up visit, breast exam. Pt c/o: reports no breast complaints. mm:05/21/23 Staff Software Engineer Required: Yes Staff Software Engineer Language: Transfer Car Operator Services: Staff Software Engineer Present Staff Software Engineer Name: Trace Information Interpreted: non-clinical & clinical Accompanied by: Self / Same As Patient Allergies morphine [MORPHINE] Allergy (Unknown, Verified 12/08/23 13:06) STATES TABLET FORM CAUSES SHAKING Medication List - Last Reconciled 12/08/23 by Chris Christy MD acetaminophen 500 mg PO TID PRN albuterol sulfate 2.5 mg inhalation Q4-6H albuterol sulfate 90 mcg/actuation 90 mcg inhalation DAILY atorvastatin 40 mg PO BEDTIME celecoxib (Celebrex) 200 mg PO BID 30 days cholecalciferol (vitamin D3) (Vitamin D3) 125 mcg PO DAILY cyanocobalamin (vitamin B-12) (Vitamin B-12) 1,000 mcg PO DAILY fluticasone propion-salmeterol 500-50 mcg/dose (Advair Diskus) 1 ea PO BID fluticasone propionate 110 mcg/actuation (Flovent HFA) 2 puffs inhalation BID hydrochlorothiazide 25 mg PO DAILY ibuprofen 600 mg PO TID PRN ipratropium bromide 17 mcg/actuation 2 puffs inhalation QID ipratropium bromide 1 mcg inhalation DAILY PRN letrozole 2.5 mg PO DAILY loratadine 10 mg PO DAILY losartan-hydrochlorothiazide 50-12.5 mg 1 tab PO DAILY melatonin 5 mg PO BEDTIME naproxen 500 mg PO BID omeprazole 40 mg PO DAILY ondansetron 4 mg PO Q6-8H PRN triamcinolone acetonide 0.5% 1 appl topical BID HPI Comments Details: 68-year-old female patient returning for breast cancer follow-up examination. She underwent an ultrasound-guided core biopsy on 07/26/2020 for a left breast density. Pathology revealed an invasive ductal carcinoma, grade 3, ER/HI positive, HER2 Ernestina negative. She subsequently underwent a left breast lumpectomy with needle localization, left axillary sentinel node biopsy. Pathology revealed invasive ductal carcinoma, grade 3, 1.6 cm with positive anterior margin, ductal carcinoma in-situ focal, with negative margins. Wider excision at the same primary procedure of the left anterior superior margin revealed benign breast tissue with fibrocystic change. No residual carcinoma was seen. Four lymph nodes were negative for metastatic disease (pT1c N0 (sn) (i-)). She was evaluated by Dr. Cobb; Oncotype DX recurrence score was 24 with the benefit of chemotherapy felt to be less than 1%. She underwent radiation therapy at [facility]. She tolerated this well and was subsequently started on letrozole 2.5 mg daily. Her last mammogram dated 05/21/2023 revealed stable postoperative changes in the left breast with no mammographic evidence of malignancy (BI-RADS 2). Follow-up diagnostic mammogram in 1 year has been scheduled for 05/24/2024. She feels well and denies any ongoing breast symptoms at this time. [facility] Medical History Breast cancer History of high cholesterol Asthma HTN (hypertension) Arthritis Abnormal mammogram of left breast Surgical History History of lumpectomy of left breast Family History Mother Arthritis Alzheimer disease Social History Are you a primary palliative care physician to a significant other at home: No Alcohol intake: never Patient Tobacco Use Status: Never used Tobacco Current occupational status: unemployed Current occupation: rt hand Female Reproductive History Menstrual Age of Menarche: 12 Review of Systems Const Denies chills, Denies fever(s), Denies headache(s) and Denies poor appetite ENT Denies dizziness and Denies headache(s) Card Denies chest pain, Denies rapid heart rate, Denies palpitations and Denies slow heart rate Resp Denies chest congestion, Denies cough, Denies pain on inspiration and Denies wheezing GI Denies abdominal pain, Denies bloating, Denies change in stool character, Denies constipation, Denies diarrhea, Denies nausea, Denies vomiting and Denies hematemesis Denies nipple discharge Musc Details: Sciatic pain down left leg Reports back pain, Denies arthralgias, Denies joint swelling and Denies numbness Skin/Breast Reports breast skin changes, Reports breast pain, Denies breast mass, Denies change in breast shape, Reports change in pigmentation, Denies nipple discharge, Denies erythema and Denies rash Neuro Denies dizziness, Denies headache(s) and Denies numbness Psych Denies anxiety and Denies depression Endo Denies palpitations Alan/Lymph Denies easy bleeding, Denies easy bruising and Denies lymphadenopathy Aller/Immun Denies wheezing Physical Exam Vital Signs: Last Vital Signs Pulse 73 12/08/23 13:04 BP 140/70 H 12/08/23 13:04 BMI result Body Mass Index 28.1 Const General: cooperative, healthy appearing, comfortable, no acute distress, well developed, alert and awake Chest Other: Left breast incision in the upper outer quadrant is clean, dry, and intact without redness. Breast tissue is soft with no palpable mass. No skin change, nipple discharge or palpable lymph nodes are appreciated. Right breast with no skin change, nipple discharge, palpable mass, or enlarged lymph nodes. nipple retraction noted. Resp Effort & Inspection: normal respiratory effort Skin Other: Warm, dry, no rash Extrem General: Yes no clubbing, cyanosis or edema Assessment & Plan Assessment & Plan (1) Invasive ductal carcinoma of left breast, stage 1: Code(s): C50.912 - Malignant neoplasm of unspecified site of left female breast Category: Medical Plan 68-year-old female patient returning for follow-up breast examination with a history of infiltrating ductal carcinoma of the left breast S/P left breast lumpectomy with sentinel node biopsy. She generally feels well and denies any ongoing breast symptoms. Her most recent mammogram of 05/21/2023 revealed postoperative changes but no mammographic evidence of malignancy (BI-RADS 2). A follow-up diagnostic mammogram is scheduled for 05/24/2024. Examination today revealed no suspicious findings in either breast. She should follow up in 6 months following her next mammogram. Coding Level of Care Code Est Pt Level 3 (61710) Diagnoses Invasive ductal carcinoma of left breast, stage 1 C50.912
== END 2023-12-08 13:29 | disposition home or self-care (01) ==
PROVIDERS: PCP Internal Medicine; Visit Provider Surgery
DX: C50.912 Malignant neoplasm of unspecified site of left female breast (principal)
CPT/HCPCS: 99213

== ENCOUNTER → 2023-12-08 12:21 | Outpatient (BNVA) | payer MEDICARE, MEDICAID, SELFPAY | PROVIDERS: PCP Internal Medicine; Visit Provider Surgery | DX: C50.912 Malignant neoplasm of unspecified site of left female breast (principal) | CPT/HCPCS: 99212 ==

== ENCOUNTER 2024-02-12 09:51 | Outpatient (AMB) | payer MEDICARE, MEDICAID, SELFPAY ==
--- NOTE | 2024-02-12 10:00 | MHC.OFFVIS ---
Vital Signs 02/12/24 10:39 Height 5 ft 4 in Weight 165 lb BMI 28.3 BP 128/72 Blood Pressure Location Lt brachial Position Sitting Pulse 85 Pulse Source Doppler Pulse Oximetry (%) 99 Oxygen Delivery Method Room Air Intake Visit Reasons: Asthma follow-up Radio Maintainer Required: Yes Radio Maintainer Name: Bernie Maguire IsisKeith Allergies morphine [MORPHINE] Allergy (Unknown, Verified 12/08/23 13:06) STATES TABLET FORM CAUSES SHAKING HPI HPI Asthma follow-up: Details: 68-year-old lady, lifetime nonsmoker, followed for severe persistent allergic asthma? and environmental allergies.? She has missed her to Fasenra injections and a been canceled with worsening control of his symptoms. Patient also was started on Flovent by her primary care provider MAXIME of Advair, also with suboptimal control his symptoms. Though, she denies acute exacerbations. [facility] Medical History Breast cancer History of high cholesterol Asthma HTN (hypertension) Arthritis Abnormal mammogram of left breast Surgical History History of lumpectomy of left breast Family History Mother Arthritis Alzheimer disease Social History Are you a primary healthcare analyst to a significant other at home: No Alcohol intake: never Patient Tobacco Use Status: Never used Tobacco Current occupational status: unemployed Current occupation: rt hand Female Reproductive History Menstrual Age of Menarche: 12 Review of Systems Const Denies daytime sleepiness, Denies excessive sweating, Denies fatigue, Denies fever(s), Denies lethargy, Denies malaise, Denies night sweats, Denies snoring and Denies weight loss Eyes Denies blurry vision and Denies itchy eyes ENT Denies nasal congestion, Denies post nasal drip, Denies sinus pain, Denies sinus pressure and Denies other ( Thrush) Card Denies chest pain, Denies pedal edema, Denies dyspnea, Reports dyspnea on exertion, Denies orthopnea and Denies paroxysmal nocturnal dyspnea Resp Denies cough, Denies hemoptysis, Denies excessive phlegm production, Denies dyspnea, Reports dyspnea on exertion, Denies snoring and Reports wheezing GI Denies abdominal pain and Denies heartburn Musc Denies myalgias, Denies arthralgias and Denies joint swelling Skin/Breast Denies rash Neuro Denies memory loss and Denies seizure-like activity Psych Denies abnormal sleep pattern, Denies anxiety and Denies memory loss Endo Denies excessive sweating, Denies fatigue and Denies heat intolerance Alan/Lymph Denies easy bruising Aller/Immun Denies itchy eyes, Denies seasonal rhinorrhea and Reports wheezing Physical Exam Vital Signs: Last Vital Signs Pulse 85 02/12/24 10:39 BP 128/72 02/12/24 10:39 Pulse Ox 99 02/12/24 10:39 Oxygen Delivery Method Room Air 02/12/24 10:39 BMI result Body Mass Index 28.3 Const General: no acute distress and alert Nutritional Appearance: not obese Orientation/consciousness: Other orientation findings ( oriented) HEENT Head: Yes atraumatic Eyes General: appearance normal, both eyes and all related structures Sclerae: sclerae normal EOM: EOMs intact bilaterally Neck Neck: Yes supple Lymphatic: no lymphadenopathy noted Resp Effort & Inspection: normal respiratory effort and no use of accessory muscles Auscultation: clear to auscultation bilaterally Cardio Rate: regular rate Rhythm: regular rhythm Heart sounds: no gallops, no murmurs and no rubs Skin General skin exam: other ( warm) Extrem General: No clubbing, No cyanosis and No edema Assessment & Plan Assessment & Plan (1) Severe persistent allergic asthma: Code(s): J45.50 - Severe persistent asthma, uncomplicated Category: Medical Plan: Suboptimally controlled on Flovent and off Fasenra. Restart Fasenra and Advair. Continue albuterol MDI. (2) Environmental allergies: Code(s): Z91.09 - Other allergy status, other than to drugs and biological substances Category: Medical Plan: Expect to improve after restarting Fasenra. Medications: Refilled fluticasone propion-salmeterol 500-50 mcg/dose (Advair Diskus) 1 ea PO BID 60 caps 3RF Coding Level of Care Code Est Pt Level 4 (74686) Diagnoses Severe persistent allergic asthma J45.50 Environmental allergies Z91.09
[2024-02-12 10:39] VITALS: BP 128/72; PULSE 85; O2SAT 99; BMI 28.3
== END 2024-02-12 10:54 | disposition home or self-care (01) ==
PROVIDERS: PCP Internal Medicine; Visit Provider Internal Medicine Pulmonary Disease
DX: J45.50 Severe persistent asthma, uncomplicated (principal); Z91.09 Other allergy status, other than to drugs and biological substances
CPT/HCPCS: 99214

== ENCOUNTER → 2024-02-12 09:51 | Outpatient (BNVA) | payer MEDICARE, MEDICAID, SELFPAY | PROVIDERS: PCP Internal Medicine; Visit Provider Internal Medicine Pulmonary Disease | DX: J45.50 Severe persistent asthma, uncomplicated (principal); Z91.09 Other allergy status, other than to drugs and biological substances | CPT/HCPCS: 99212 ==

== ENCOUNTER → 2024-05-24 09:15 | Outpatient (BNV) | payer MEDICARE, MEDICAID, SELFPAY | PROVIDERS: PCP Internal Medicine; Visit Provider Internal Medicine | DX: R92.333 Mammographic heterogeneous density, bilateral breasts (principal); Z85.3 Personal history of malignant neoplasm of breast | CPT/HCPCS: 77066; G0279 ==

== ENCOUNTER 2024-06-28 10:59 | Outpatient (AMB) | payer MEDICARE, MEDICAID, SELFPAY ==
--- NOTE | 2024-06-28 11:06 | MHC.OFFVIS ---
Vital Signs 06/28/24 11:08 Height 5 ft 4 in Weight 162 lb BMI 27.8 BP 144/73 H Blood Pressure Location Lt brachial Position Sitting Intake Visit Reasons: 6 month breast exam Intake Note: Patient is seen in office for 6 month follow up visit, breast exam. Pt c/o: continued stabbing pain in the breast mm:05/24/24 Train Electronic Technician Required: Yes Train Electronic Technician Language: Horse Trader Services: Train Electronic Technician Present Train Electronic Technician Name: Ping PHAM Information Interpreted: non-clinical & clinical Senior Pl Sql Developer: Senior Pl Sql Developer Present Accompanied by: Self / Same As Patient Allergies morphine [MORPHINE] Allergy (Unknown, Verified 06/28/24 11:21) STATES TABLET FORM CAUSES SHAKING Medication List - Last Reconciled 06/28/24 by Chris Christy MD acetaminophen 500 mg PO TID PRN albuterol sulfate 2.5 mg inhalation Q4-6H albuterol sulfate 90 mcg/actuation 90 mcg inhalation DAILY atorvastatin 40 mg PO BEDTIME celecoxib (Celebrex) 200 mg PO BID 30 days cholecalciferol (vitamin D3) (Vitamin D3) 125 mcg PO DAILY cyanocobalamin (vitamin B-12) (Vitamin B-12) 1,000 mcg PO DAILY fluticasone propion-salmeterol 500-50 mcg/dose (Advair Diskus) 1 ea PO BID hydrochlorothiazide 25 mg PO DAILY ibuprofen 600 mg PO TID PRN ipratropium bromide 17 mcg/actuation 2 puffs inhalation QID ipratropium bromide 1 mcg inhalation DAILY PRN letrozole 2.5 mg PO DAILY loratadine 10 mg PO DAILY losartan-hydrochlorothiazide 50-12.5 mg 1 tab PO DAILY melatonin 5 mg PO BEDTIME naproxen 500 mg PO BID omeprazole 40 mg PO DAILY ondansetron 4 mg PO Q6-8H PRN triamcinolone acetonide 0.5% 1 appl topical BID HPI Comments Details: 68-year-old female patient returning for breast cancer follow-up examination. She underwent an ultrasound-guided core biopsy on 07/26/2020 for a left breast density. Pathology revealed an invasive ductal carcinoma, grade 3, ER/OH positive, HER2 Ernestina negative. She subsequently underwent a left breast lumpectomy with needle localization, left axillary sentinel node biopsy on 08/09/2020. Pathology revealed invasive ductal carcinoma, grade 3, 1.6 cm with positive anterior margin, ductal carcinoma in-situ focal, with negative margins. Wider excision at the same primary procedure of the left anterior superior margin revealed benign breast tissue with fibrocystic change. No residual carcinoma was seen. Four lymph nodes were negative for metastatic disease (pT1c N0 (sn) (i-)). She was evaluated by Dr. Cobb; Oncotype DX recurrence score was 24 with the benefit of chemotherapy felt to be less than 1%. She underwent radiation therapy at [facility]. She tolerated this well and was subsequently started on letrozole 2.5 mg daily. Her last mammogram performed on 05/24/2024 revealed no mammographic evidence of malignancy (BI-RADS 2). She denies any breast symptoms but does complain of back pain extending into her leg. [facility] Medical History Breast cancer History of high cholesterol Asthma HTN (hypertension) Arthritis Abnormal mammogram of left breast Surgical History History of lumpectomy of left breast Family History Mother Arthritis Alzheimer disease Social History Are you a primary family day carer to a significant other at home: No Alcohol intake: never Patient Tobacco Use Status: Never used Tobacco Current occupational status: unemployed Current occupation: rt hand Female Reproductive History Menstrual Age of Menarche: 12 Review of Systems Const Denies chills, Denies fever(s), Denies headache(s) and Denies poor appetite ENT Denies dizziness and Denies headache(s) Card Denies chest pain, Denies rapid heart rate, Denies palpitations and Denies slow heart rate Resp Denies chest congestion, Denies cough, Denies pain on inspiration and Denies wheezing GI Denies abdominal pain, Denies bloating, Denies change in stool character, Denies constipation, Denies diarrhea, Denies nausea, Denies vomiting and Denies hematemesis Denies nipple discharge Musc Details: Sciatic pain down left leg Reports back pain, Denies arthralgias, Denies joint swelling and Denies numbness Skin/Breast Reports breast skin changes, Reports breast pain, Denies breast mass, Denies change in breast shape, Reports change in pigmentation, Denies nipple discharge, Denies erythema and Denies rash Neuro Denies dizziness, Denies headache(s) and Denies numbness Psych Denies anxiety and Denies depression Endo Denies palpitations Alan/Lymph Denies easy bleeding, Denies easy bruising and Denies lymphadenopathy Aller/Immun Denies wheezing Physical Exam Const General: cooperative, healthy appearing, comfortable, no acute distress, well developed, alert and awake Chest Other: Left breast incision in the upper outer quadrant is clean, dry, and intact without redness. Breast tissue is soft with no palpable mass. No skin change, nipple discharge or palpable lymph nodes are appreciated. Right breast with no skin change, nipple discharge, palpable mass, or enlarged lymph nodes. nipple retraction noted. Resp Effort & Inspection: normal respiratory effort Skin Other: Warm, dry, no rash Neuro Other: Mobility Assessment: 1. 3 meter assessment time (seconds) 7 2. Gait observations: Normal balance and gait Extrem General: Yes no clubbing, cyanosis or edema Assessment & Plan Assessment & Plan (1) Invasive ductal carcinoma of left breast, stage 1: Code(s): C50.912 - Malignant neoplasm of unspecified site of left female breast Category: Medical Plan 68-year-old female patient returning for follow-up breast examination with a history of infiltrating ductal carcinoma of the left breast S/P left breast lumpectomy with sentinel node biopsy. She generally feels well and denies any ongoing breast symptoms. Her most recent mammogram of 05/24/2024 revealed postoperative changes but no mammographic evidence of malignancy (BI-RADS 2). Examination today revealed no suspicious findings in either breast. She will be due for a mammogram in 12 months and should return for follow-up examination in 6 months. She is welcome to call sooner for any new concerns. Coding Level of Care Code Est Pt Level 3 (93629) Complex EM visit Add On G2211 Diagnoses Invasive ductal carcinoma of left breast, stage 1 C50.912
[2024-06-28 11:08] VITALS: BP 144/73; BMI 27.8
== END 2024-06-28 11:35 | disposition home or self-care (01) ==
PROVIDERS: PCP Internal Medicine; Visit Provider Surgery
DX: C50.912 Malignant neoplasm of unspecified site of left female breast (principal)
CPT/HCPCS: 99213; G2211

== ENCOUNTER → 2024-06-28 10:59 | Outpatient (BNVA) | payer MEDICARE, MEDICAID, SELFPAY | PROVIDERS: PCP Internal Medicine; Visit Provider Surgery | DX: C50.912 Malignant neoplasm of unspecified site of left female breast (principal) | CPT/HCPCS: 99212 ==

== ENCOUNTER 2024-11-23 10:54 | Outpatient (REF) | payer MEDICARE, MEDICAID, SELFPAY ==
[2024-11-23 13:06] LABS: MANUAL DIFF FLAG NO
[2024-11-23 13:09] LABS: Basophils Percent Auto 0.6 % (0-2); Eosinophils Absolute Auto 0.4 X10*3/uL (0.0-0.4); Eosinophils Percent Auto 8.1 % (0-4); Hematocrit 37.9 % (37.0-47.0); Hemoglobin 12.2 g/dl (12.0-16.0); Imm Gran Abs Auto 0.02 X10*3/uL (0.00-0.03); Imm Gran Pct Auto 0.4 % (0.0-0.4); Lymphocytes Absolute Auto 1.5 X10*3/uL (1.2-4.9); Lymphocytes Percent Auto 27.2 % (20-40); Mean Corpuscular HGB Conc 32.2 g/dl (31.0-35.0); Mean Corpuscular Volume 99.5 fL (80.0-98.0); Mean Platelet Volume 9.5 fL (9.4-12.3); Monocytes Absolute Auto 0.4 X10*3/uL (0.1-1.2); Monocytes Percent Auto 6.8 % (2-11); Neutrophils Absolute Auto 3.1 x10*3/uL (2.0-8.3); Neutrophils Percent Auto 56.9 % (45-73); Platelet Count 194 X10*3/uL (160-400); Red Blood Count 3.81 X10*6/uL (4.20-5.50); Red Cell Distribution Width 13.4 % (11.0-16.0); White Blood Count 5.4 X10*3/uL (4.8-10.8)
[2024-11-23 13:22] LABS: Alanine Aminotransferase 23 U/L (0-31); Albumin Level 4.5 g/dL (3.5-5.0); Alkaline Phosphatase 51 U/L (39-117); Anion Gap 12 (12-20); Aspartate Amino Transferase 27 U/L (5-31); Bilirubin Total 0.4 mg/dL (0.0-1.0); Blood Urea Nitrogen 15 mg/dL (9-16); Calcium 9.8 mg/dL (8.4-10.2); Carbon Dioxide 27 mmol/L (22-29); Chloride 109 mmol/L (96-108); Cholesterol 214 mg/dL (<200); Estimated Glomerular Filt Rate > 60; Glucose Random 81 mg/dL (60-115); HDL Cholesterol 54 mg/dL (>40); LDL Cholesterol Calculated 130 mg/dL (<100); Potassium 3.5 mmol/L (3.3-5.1); Sodium 144 mmol/L (135-145); Total Protein 6.6 g/dL (6.5-8.0); Triglycerides 153 mg/dL (<150)
== END 2024-11-23 10:55 | disposition home or self-care (01) ==
LOC: HO.10HDL 10:54
PROVIDERS: Visit Provider Internal Medicine
DX: E78.00 Pure hypercholesterolemia, unspecified (principal); F32.5 Major depressive disorder, single episode, in full remission; I10 Essential (primary) hypertension; J45.909 Unspecified asthma, uncomplicated
CPT/HCPCS: 36415; 80053; 80061; 85025

== ENCOUNTER 2025-02-22 15:05 | Inpatient (IN) | payer MEDICARE, MEDICAID, SELFPAY ==
--- NOTE | ~2025-02-22 | US_ITS ---
EXAMINATION: US CHEST CLINICAL INFORMATION: Bilateral pleural effusion COMPARISON: CT chest 02/22/2025 TECHNIQUE: Ultrasound imaging of posterior chest was obtained with patient sitting upright. There is no right pleural effusion seen. Tiny amount of left pleural effusion was visualized. It was decided not to performed thoracentesis due to high risk of pneumothorax. The exam was canceled. FINDINGS/ US/US chest IMPRESSION: Left thoracentesis was canceled due to tiny amount of fluid and high risk of pneumothorax. Electronically signed by: Jack Farah MD 02/23/2025 03:57 PM EDT
--- NOTE | ~2025-02-22 | XR_ITS ---
CLINICAL HISTORY: follow up on pleural effusion --- Additional Notes or Special Instructions: Sent message for transport - 1022 2 view chest x-ray Comparison: CR/SR - XR CHEST 2 VIEWS - 04/04/22 12:15 EDT Findings: The lungs are clear. Mildly enlarged heart. No acute fracture. IMPRESSION: 1. No acute findings. This document has been electronically signed by: Amarilys Pearl MD on 02/25/2025 13:41:22
--- NOTE | ~2025-02-22 | CT_ITS ---
CLINICAL HISTORY: elevated D-dimer. CT angiography chest with contrast. 3D Postprocessing. Comparison: None provided Findings: Mildly enlarged heart. Small pericardial effusion. Unremarkable thoracic aorta and great vessels. No aneurysm. No pulmonary artery filling defects. The visualized thyroid and mediastinum are unremarkable. Small left pleural effusion. Trace right pleural effusion. No consolidation. There may be a mild degree of interstitial edema. There is reflux of contrast into the hepatic venous system. The visualized abdomen is otherwise unremarkable. The bones are intact. IMPRESSION: 1. No evidence of pulmonary artery embolism. 2. Bilateral pleural effusions, left larger than right. 3. There may be a mild degree of interstitial edema. 4. There is a small pericardial effusion. This document has been electronically signed by: Amarilys Pearl MD on 02/22/2025 18:39:37
--- NOTE | ~2025-02-22 | US_ITS ---
CLINICAL HISTORY: swelling Venous duplex ultrasound left upper extremity Comparison: None provided Findings: Accessible deep venous segments are fully compressible with normal Doppler color flow and spectral tracings. IMPRESSION: 1. Negative for left upper extremity deep vein thrombosis. This document has been electronically signed by: Amarilys Pearl MD on 02/22/2025 18:42:31
--- NOTE | 2025-02-22 15:10 | ECG_ITS ---
Test Reason : SOB Blood Pressure : */* mmHG Vent. Rate : 91 BPM Atrial Rate : 91 BPM P-R Int : 166 ms QRS Dur : 72 ms QT Int : 352 ms P-R-T Axes : 47 11 7 degrees QTcB Int : 432 ms Sinus rhythm with marked sinus arrhythmia Low voltage QRS Cannot rule out Anterior infarct (cited on or before 04-Apr-2022) Abnormal ECG When compared with ECG of 04-Apr-2022 11:39, Borderline criteria for Inferior infarct are no longer Present Referred By: Generic ED Physician Electronically Signed By: SINA LALA
[2025-02-22 15:29] VITALS: BP 162/87; PULSE 88; RESP 16; TEMP 36.3; O2SAT 98; BMI 27.7
--- NOTE | 2025-02-22 15:38 | ED.GENADULT ---
HPI - General Adult General Chief complaint: Dyspnea Stated complaint: SOB Time Seen by Provider: 02/22/25 16:03 Source: patient and sodder Mode of arrival: ambulatory Limitations: no limitations History of Present Illness ED Provider: DR. Ibanez HPI narrative: 69 yo PMHx asthma, arthritis, breast CA, HLD, HTN, patient came in for evaluation of on and off chest pain and shortness of breath, patient also noted that her left side is swollen and noticed left-sided neck veins are swollen, congested and pulsatile. patient been having exertional shortness of breath, and bilateral lower extremity swelling left more than right. No fever, no chills, no recent travel, no lower extremity swelling or tenderness, no cough. Related Data Home Medications ?Medication ?Instructions ?Recorded ?Confirmed albuterol sulfate 2.5 mg/3 mL 2.5 mg inhalation Q4-6H PRN 03/05/20 06/28/24 (0.083 %) solution for nebulization Shortness Of Breath albuterol sulfate 90 mcg/actuation 90 mcg inhalation Q6H PRN 03/05/20 02/22/25 aerosol inhaler Shortness Of Breath Or Wheezing acetaminophen 500 mg tablet 500 mg PO TID PRN fever 10/16/23 02/22/25 losartan 50 mg-hydrochlorothiazide 1 tab PO DAILY 10/16/23 02/22/25 12.5 mg tablet montelukast 10 mg tablet 10 mg PO DAILY 02/22/25 02/22/25 rosuvastatin 40 mg tablet 40 mg PO DAILY 02/22/25 02/22/25 Previous Rx's ?Medication ?Instructions ?Recorded cyanocobalamin (vitamin B-12) 1,000 mcg PO DAILY #90 tabs 02/04/22 1,000 mcg tablet (Vitamin B-12) fluticasone 500 mcg-salmeterol 50 1 ea PO BID #60 caps 02/12/24 mcg/dose blistr powdr for inhalation (Advair Diskus) cholecalciferol (vitamin D3) 125 125 mcg PO DAILY #30 tabs 06/30/24 mcg (5,000 unit) tablet (Vitamin D3) Allergies Allergy/AdvReac Type Severity Reaction Status Date / Time morphine (MORPHINE) Allergy Unknown STATES Verified 02/22/25 15:30 TABLET FORM CAUSES SHAKING Review of Systems Review of Systems: all other systems are reviewed and are negative Constitutional: Reports as per HPI and Reports no additional constitutional complaints Eyes: Reports as per HPI and Reports no additional eye complaints Reports system reviewed and no additional complaints, except as documented Cardiovascular: Reports as per HPI and Reports no additional cardiovascular complaints Respiratory: Reports as per HPI and Reports no additional respiratory complaints Gastrointestinal: Reports as per HPI and Reports no additional gastrointestinal complaints Genitourinary: Reports no additional female genitourinary complaints Musculoskeletal: Reports no additional musculoskeletal complaints Skin/Breast: Reports system reviewed and no additional complaints, except as docu Psychiatric: Reports no additional psychiatric complaints Endocrine: Reports no additional endocrine complaints Hematologic/Lymphatic: Reports no additional hematologic/lymphatic complaints Allergic/Immunologic: Reports no additional allergic/immunologic complaints Reports system reviewed and no additional complaints, except as documented and Reports Abnormal speech present [facility] Past Medical History Medical History Breast cancer History of high cholesterol Asthma HTN (hypertension) Arthritis Abnormal mammogram of left breast Surgical History History of lumpectomy of left breast Family History Family History Mother Arthritis Alzheimer disease Social History Social History Are you a primary healthcare science specialist to a significant other at home: No Alcohol intake: never Patient Tobacco Use Status: Never used Tobacco Smoked in Last 30 Days: No Use of substances other than those prescribed or required for medical reasons: No Advance Directives: No Advance Directives Information Provided: Yes Nutrition Risks: No Nutritional Risk Current occupational status: unemployed Current occupation: rt hand Physical Exam ED Vital Signs: Vital Signs - 24 hr 02/22/25 15:29 02/22/25 17:38 Temperature 97.3 F 97.8 F Pulse Rate 88 75 Respiratory Rate 16 18 Blood Pressure 162/87 H 145/77 H Pulse Oximetry 98 97 Oxygen Delivery Method Room Air Room Air BMI result Body Mass Index 27.7 Vital signs have been reviewed and appear to be correct. Blood pressure elevated. Heart rate normal. Respiratory rate normal. Temperature normal. Oxygen saturation normal. Appearance: Alert. Oriented X3. No acute distress. Head: Normal external exam. Normocephalic. Atraumatic. No Trejo signs noted. No raccoon eyes noted Eyes: PERRLA. EOMI. Conjunctiva and sclera normal. Eyelids normal. ENT: TM's Normal. Pharynx normal. Uvula midline. Moist mucous membranes. No trismus noted. No drooling noted. No muffled voice noted. Neck: Normal inspection. Neck supple. FROM. No adenopathy. Thyroid Normal. No meningeal signs. No neck mass noted. CVS: Normal heart rate and rhythm. Heart sound normal. No murmurs noted. Pulses normal throughout. Respiratory: No respiratory distress. Painless inspiration. Breath sounds normal. No wheezes/rales/rhonchi noted. Chest nontender. No accessory muscle usage noted or decreased air movement noted. Abdomen: Soft and nontender. Bowel sounds normal in all 4 quadrants. No distention noted. No organomegaly noted. No visible injury noted. Back: No CVA tenderness. Full range of motion noted. Skin: Skin warm and dry. Normal skin color. Normal skin turgor. No rashes/lesions/lacerations noted. Extremities: No lower extremity edema. Extremities exhibit normal range of motion. Extremities nontender. Neuro: Oriented X 3. Cranial nerve exam: II-XII are grossly intact No motor deficit. No sensory deficit. Reflexes normal. Course Course Course Narrative: RME: 69 year female presents to ED for chest tightness without any chest pain shortness of breath. Patient states increased use of albuterol inhaler. Patient denies any URI symptoms. Lungs are clear EKG labs ordered Reevaluation(s) Reevaluation #1: 69-year-old female came in for shortness of breath and bilateral neck vein congestion, pain is mostly exertional Likely secondary to CHF. Elevated troponin with no ischemic change on the EKG no delta change on troponin. Admit for nitro / Lasix and further evaluation of CHF. Time: 19:11 Medications Administered Discontinued Medications Generic Name Dose Route Start Last Admin Trade Name Nereyda PRN Reason Stop Dose Admin Aspirin 325 mg 02/22/25 19:59 02/22/25 20:09 Aspirin Enteric Coated 325 Mg Tablet.Dr ALCAZAR 02/22/25 20:00 325 mg ONCE STA Administration Furosemide 40 mg 02/22/25 19:08 02/22/25 19:43 Furosemide 40 Mg/4 Ml Vial IVPUSH 02/22/25 19:09 40 mg ONCE ONE Administration Protocol Iohexol 665 ml 02/22/25 18:02 02/22/25 18:02 Iohexol 350 Mg/Ml 100 Ml Infus..Btl IV 02/22/25 18:03 100 ml ONCE ONE Administration Iohexol 65 ml 02/22/25 18:03 02/22/25 18:03 Iohexol 350 Mg/Ml 100 Ml Infus..Btl IV 02/22/25 18:04 65 ml ONCE ONE Administration Nitroglycerin 0.5 inch 02/22/25 19:08 02/22/25 19:44 Nitroglycerin 2 % Oint 1 Gm Packet TRANSDERMA 02/22/25 19:09 0.5 inch ONCE ONE Administration Medical Decision Making Differential Diagnosis Differential Diagnoses: The differential diagnosis associated with the presentation includes ( ACS, CHF, pneumonia, pneumothorax, pleural effusion, asthma exacerbation, COPD exacerbation.) Admission/Observation Consideration of admission/observation: Escalation of care including admission/observation considered Consult Healthcare Provider Management of the patient was discussed with: Hospitalist ( Dr. Fletcher) Lab Data MDM Lab Attestation statement: I reviewed the patient's lab results. 02/22/25 15:42 02/22/25 15:42 Labs: Lab Results 02/22/25 02/22/25 Range/Units 15:42 18:30 WBC 5.6 (4.8-10.8) X10*3/uL RBC 3.91 L (4.20-5.50) X10*6/uL Hgb 12.7 (12.0-16.0) g/dl Hct 38.8 (37.0-47.0) % MCV 99.2 H (80.0-98.0) fL MCH 32.5 (27.0-33.0) pg MCHC 32.7 (31.0-35.0) g/dl RDW 13.7 (11.0-16.0) % Plt Count 161 (160-400) X10*3/uL MPV 10.2 (9.4-12.3) fL Immature Gran % (Auto) 0.2 (0.0-0.4) % Neut % (Auto) 58.3 (45-73) % Lymph % (Auto) 28.9 (20-40) % [place] % (Auto) 7.0 (2-11) % Eos % (Auto) 5.2 H (0-4) % Baso % (Auto) 0.4 (0-2) % Lymph # (Auto) 1.6 (1.2-4.9) X10*3/uL [place] # (Auto) 0.4 (0.1-1.2) X10*3/uL Eos # (Auto) 0.3 (0.0-0.4) X10*3/uL Baso # (Auto) 0.0 (0.0-0.2) X10*3/uL Abs Immat Gran (auto) 0.01 (0.00-0.03) X10*3/uL Absolute Neuts (auto) 3.3 (2.0-8.3) x10*3/uL Absolute Nucleated RBC 0.000 (0.0-0.012) X10*3/uL Nucleated RBC % (auto) 0.0 (0.0-0.2) /100WBC PT 13.0 H (10.9-12.4) SEC INR 1.1 (0.9-1.1) APTT 28.5 (26.7-34.1) SEC D-Dimer High Sensitivty 304 NG/ML Sodium 147 H (135-145) mmol/L Potassium 3.7 (3.3-5.1) mmol/L Chloride 112 H (96-108) mmol/L Carbon Dioxide 27 (22-29) mmol/L Anion Gap 12 (12-20) BUN 11 (9-16) mg/dL Creatinine 0.86 (0.5-1.4) mg/dL Estim Creat Clear Calc 60.5 Estimated GFR > 60 Random Glucose 106 (60-115) mg/dL Calcium 9.2 D (8.4-10.2) mg/dL Total Bilirubin 0.6 (0.0-1.0) mg/dL AST 63 H (5-31) U/L ALT 67 H (0-31) U/L Alkaline Phosphatase 70 (39-117) U/L Troponin I High Sens 88.4 H* 90.5 H* (<3.5-17.0) ng/L B-Natriuretic Peptide 626 H (<100) pg/mL Total Protein 5.9 L (6.5-8.0) g/dL Albumin 4.1 (3.5-5.0) g/dL COVID-19 (SILVIANO) Negative (Negative) COVID-19 Clin Com See Note Influenza Type A (CLAIRE) Negative (Negative) Influenza Type B (CLAIRE) Negative (Negative) Influenza A & B Note See Note Independent Interpretation I performed an independent interpretation of an: Ultrasound ( Left upper extremity ultrasound: No DVT.) and CT Scan ( chest:1. No evidence of pulmonary artery embolism. 2. Bilateral pleural effusions, left larger than right. 3. There may be a mild degree of interstitial edema. 4. There is a small pericardial effusion.) Radiology Impression Discussion of test interpretation with radiology: I have reviewed the radiologist's reading. Discharge Plan Discharge Clinical Impression: Congestive heart failure Patient Disposition: Admitted As Inpatient
[2025-02-22 15:49] LABS: MANUAL DIFF FLAG NO
[2025-02-22 15:51] LABS: Hematocrit 38.8 % (37.0-47.0); Hemoglobin 12.7 g/dl (12.0-16.0); Imm Gran Abs Auto 0.01 X10*3/uL (0.00-0.03); Imm Gran Pct Auto 0.2 % (0.0-0.4); Lymphocytes Absolute Auto 1.6 X10*3/uL (1.2-4.9); Mean Corpuscular HGB Conc 32.7 g/dl (31.0-35.0); Mean Corpuscular Hemoglobin 32.5 pg (27.0-33.0); Mean Corpuscular Volume 99.2 fL (80.0-98.0); NRBC Abs Auto 0.000 X10*3/uL (0.0-0.012); NRBC Pct Auto 0.0 /100WBC (0.0-0.2); Platelet Count 161 X10*3/uL (160-400); Red Blood Count 3.91 X10*6/uL (4.20-5.50); White Blood Count 5.6 X10*3/uL (4.8-10.8)
[2025-02-22 15:56] LABS: INTERNATIONAL NORM RATIO 1.1 (0.9-1.1); Prothrombin Time 13.0 SEC (10.9-12.4)
[2025-02-22 15:59] LABS: Partial Thromboplastin Time 28.5 SEC (26.7-34.1)
[2025-02-22 16:05] LABS: Alanine Aminotransferase 67 U/L (0-31); Albumin Level 4.1 g/dL (3.5-5.0); Alkaline Phosphatase 70 U/L (39-117); Anion Gap 12 (12-20); Aspartate Amino Transferase 63 U/L (5-31); Blood Urea Nitrogen 11 mg/dL (9-16); Calcium 9.2 mg/dL (8.4-10.2); Carbon Dioxide 27 mmol/L (22-29); Chloride 112 mmol/L (96-108); Creatinine Clr Calc Pharmacy 60.5; Estimated Glomerular Filt Rate > 60; Potassium 3.7 mmol/L (3.3-5.1); Sodium 147 mmol/L (135-145); Total Protein 5.9 g/dL (6.5-8.0)
[2025-02-22 16:09] LABS: COVID-19 Test Negative (Negative); IDNOW Serial# 08D9AD1C
[2025-02-22 16:13] LABS: IDNOW Serial# 58CA691E; Influenza B2 Negative (Negative)
[2025-02-22 16:21] LABS: Troponin-I High Sensitivity 88.4 ng/L (<3.5-17.0)
[2025-02-22 16:22] LABS: B Type Natriuretic Peptide 626 pg/mL (<100)
[2025-02-22 16:30] LABS: D Dimer High Sensitivity 304 NG/ML
[2025-02-22 17:38] VITALS: BP 145/77; PULSE 75; RESP 18; TEMP 36.6; O2SAT 97
[2025-02-22] MEDS: iohexoL 350 MG/ML 100 ML INFUS..BTL 665 ML IV (18:02)
[2025-02-22] MEDS: iohexoL 350 MG/ML 100 ML INFUS..BTL 65 ML IV (18:03)
--- NOTE | 2025-02-22 18:10 | MHC.EDTECH ---
Trop delayed due to care of other Pts and Ultrasound present in room. Will draw when they are done. RN aware.
--- OUTSIDE RECORDS SUMMARY | 2025-02-22 19:04 | XMS_ITS | Encounter Summary ---
Author Organization [facility] Address [address] [facility] [address] [place] [phone] Phone Care Team Providers Care [employer] Volleyball Coach Name Role Phone Ashley Villasenor MD Primary Care Provider Encounter Details Date Type Department Care Team (Late st Contact Info) Description 08/24/2020 Ancillary Orders [facility],Outside Imaging [address] [place] [address] System, Provider Not In, [facility] [address] [id number] Social History Tobacco Use Types Packs/Day Years Used Date Smoking Tobacco: Never Assessed Comments Unknown Sex and Gender Information Value Date Recorded Sex Assigned at Female 10/22/2020 2:01 PM EDT Legal Sex Female 9:49 AM EDT Gender Identity Female 10/22/2020 2:01 PM EDT Sexual Orientation Straight 10/22/2020 2: 01 PM EDT documented as of this encounter Plan of Treatment Not on file documented as of this encounter Results * NM Other Outside (No Interpretation) (08/09/2020 12:00 AM EST) Narrative SYSTEMGENERATED, DOCUMENTATION - 08/24/2020 12:06 PM EDT This study is for PACS storage only and not for interpretation. us Provider Not In System [facility] OUTSIDE IMAGING W /OUT INTERPRETATION Final Result documented in this encounter Visit Diagnoses Not on filedocumented in this encounter Care Teams [employer] Vol[employer] Relationship Specialty Start Date End Date Ashley Villasenor MD [address] [place] [address] [place] [phone] PCP - General 08/31/20 documented as of this encounter Additional Source Comments The information contained in this document represents components of the legal health record. It is not the complete legal health record.[facility]
--- OUTSIDE RECORDS SUMMARY | 2025-02-22 19:04 | XMS_ITS | Encounter Summary ---
Author Organization [facility] Address [address] [facility] [address] [place] [phone] Phone Care Team Providers Care Chamber Magistrate Name Role Phone Ashley Villasenor MD Primary Care Provider Encounter Details Date Type Department Care Team (Late st Contact Info) Description 08/24/2020 Ancillary Orders [facility],Outside Imaging [address] [place] [address] System, Provider Not In, [facility] [address] [address] Social History Tobacco Use Types Packs/Day Years [...] documented as of this encounter Results * Mammogram Outside (No Interpretation) (07/26/2020 12:05 AM EST) Narrative SYSTEMGENERATED, DOCUMENTATION - 08/24/2020 12:05 PM EDT This study is for PACS storage only and not for interpretation. us Provider Not In System [facility] OUTSIDE IMAGING W /OUT INTERPRETATION Final Result documented in this encounter Visit Diagnoses Not on filedocumented in this encounter Care Teams Chamber Magistrate Relationship Specialty Start Date End Date Ashley Villasenor MD [address] [place] [address] [place] [phone] PCP - General 08/31/20 documented as of this encounter Additional Source Comments The information contained in this document represents components of the legal health record. It is not the complete legal health record.[facility]
--- OUTSIDE RECORDS SUMMARY | 2025-02-22 19:04 | XMS_ITS | Clinical Summary ---
Author Organization [facility] Address [address] [place] [phone] Phone Care Team Providers Care Shipping Clerk Crating Name Role Phone Ashley Villasenor MD Primary Care Provider Allergies Active Allergy Reactions Criticality Noted Date Comments Morphine Tremor Low 08/28/2020 Medications albuterol 2.5 mg/0.5 mL nebulizer solution Take 2.5 mg by nebulization 4 (four) times a day as needed for wheezing. Active albuterol 90 mcg/actuation inhaler Inhale 2 puffs into the lungs every 6 (six) hours as needed for wheezing. Active atorvastatin (LIPITOR) 40 MG tablet Take 40 mg by mouth nightly at bedtime. Active hydroCHLOROthia zide (HYDRODIURIL) 12.5 MG tablet Take 12.5 mg by mouth daily. Active ipratropium (ATROVENT HFA) 17 mcg/actuation inhaler Inhale 2 puffs into the lungs 4 (four) times a day. Active loratadine (CLARITIN) 10 mg tablet Take 10 mg by mouth daily. Active terbinafine HCL (LAMISIL) 1 % cream Apply topically 2 (two) times a day. Active fluticasone propionate (FLONASE) 50 mcg/actuation nasal spray 1 spray by Nasal route daily. Active ibuprofen (ADVIL,MOTRIN) 600 MG tablet Take 600 mg by mouth 3 (three) times a day as needed for pain (specific location in comments). Active acetaminophen (TYLENOL) 325 mg tablet Take 650 mg by mouth every 6 (six) hours as needed for mild pain. 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 Not on denise e 10/03/2022 Are you concerned about learning? Not on file 10/03/2022 No 10/03/2022 No 10/03/2022 Digital Access Answer Date Recorded No 11/01/2022 No 11/01/2022 No 11/01/2022 Reliable internet access at home? Not on file 11/01/2022 Device with a working camera? Not on file Comments No Sex and Gender Information Value Date Recorded Sex Assigned at Female 10/22/2020 2:01 PM EDT Legal Sex Female 9:49 AM EDT Gender Identity Female 10/22/2020 2:01 PM EDT Sexual Orientation Straight 10/22/2020 2: 01 PM EDT Last Filed Vital Signs Vital Sign Reading Time Taken Comments Blood Pressure 113/81 11/13/2020 9:53 AM EDT Pulse 86 11/13/2020 9:53 AM EDT Temperature 37.1 C (98.8 F) 10/22/2020 1:57 PM EDT Respiratory Rate 18 11/13/2020 9:53 AM EDT Oxygen Saturation 98% 11/13/2020 9:53 AM EDT Inhaled Oxygen Concentration - - Weight 83.6 kg (184 lb 4.8 oz) 11/06/2020 11:38 AM EDT Height 162.6 cm (5' 4 ) 10/22/2020 1:57 PM EDT Body Mass Index 31.64 10/22/2020 1:57 PM EDT Plan of Treatment Health Maintenance Due Date Last Done Comments Adult Td,Tdap Booster 1955 LIPID PANEL 1955 POTASSIUM LEVEL 1955 DEPRESSION SCREENING 1967 HEPATITIS C SCREENING 09/25/1973 PNEUMOCOCCAL VACCINES (50+ years) (1 of 2 - PCV) 09/25/1974 ZOSTER VACCINES (1 of 2) 09/25/1974 COLOGUARD 09/25/2000 COLONOSCOPY 09/25/2000 COLORECTAL CANCER SCREENING 09/25/2000 FIT TEST 09/25/2000 FOBT 09/25/2000 SIGMOIDOSCOPY 09/25/2000 VIRTUAL COLONOSCOPY 09/25/2000 OSTEOPOROSIS SCREENING INITI AL (ONE-TIME) 09/25/2020 MAMMOGRAM 07/26/2022 07/26/2020, 07/17/2020, 05/23/2020 INFLUENZA VACCINE (#1) 2025 COVID-19 VACCINE (1 - 2023-2 5 season) 2025 RSV VACCINE (1 - 1-dose 75+ series) 09/25/2030 SMOKING STATUS SCREENING (On ce After 26 Yrs) Completed 08/31/2020 HEPATITIS A VACCINES Aged Out No long er eligible based on patient's age to complete this topic HIB VACCINES Aged Out No longer eligi ble based on patient's age to complete this topic MENINGOCOCCAL VACCINES (ACWY) Aged Out No longer eligible based on patient's age to complete this topic MENINGOCOCCAL VACCINES (B) Aged Out N o longer eligible based on patient's age to complete this topic Medical Devices Not on file Procedures Procedure Name Priority Date/Time Associated Diagnosis Comments BI MAMMOGRAM OUTSIDE (NO INTERPRETATION) Routine 07/26/2020 12:05 AM EST from Last 3 Months or Most Recently Relevant to Health Maintenance Results * Mammogram Outside (No Interpretation) (07/26/2020 12:05 AM EST) Narrative SYSTEMGENERATED, DOCUMENTATION - 08/24/2020 12:05 PM EDT This study is for PACS storage only and not for interpretation. us Provider Not In System PhD IMG OUTSIDE IMAGING W /OUT INTERPRETATION Final Result from Last 3 Months or Most Recently Relevant to Health Maintenance Insurance [address] [place] [id number] [facility] [employer] [address] [place] [id number] [place] [address] [place] [id number] [place] [address] [place] [id number] [place] [address] [place] [address] [place] [address] [place] [address] [place] Care Teams Shipping Clerk Crating Relationship Specialty Start Date End Date Ashley Villasenor MD [address] [place] [address] [place] [address] PCP - General 08/31/20 Additional Source Comments The information contained in this document represents components of the legal health record. It is not the complete legal health record.[facility]
--- OUTSIDE RECORDS SUMMARY | 2025-02-22 19:05 | XMS_ITS | Encounter Summary ---
Author Organization [facility] Address [address] [facility] [address] [place] [address] Phone Care Team Providers Care Hotel Operation Manager Name Role Phone Ashley Villasenor MD Primary Care Provider Encounter Details Date Type Department Care Team (Late st Contact Info) Description 08/24/2020 Ancillary Orders [facility],Outside Imaging [address] [place] [address] System, Provider Not In, PhD Partners [address] [address] Social History Tobacco Use Types Packs/Day Years [...] encounter Results * Mammogram Outside (No Interpretation) (07/17/2020 12:00 AM EST) Narrative SYSTEMGENERATED, DOCUMENTATION - 08/24/2020 12:01 PM EDT This study is for PACS storage only and not for interpretation. us Provider Not In System PhD IMG OUTSIDE IMAGING W /OUT INTERPRETATION Final Result documented in this encounter Visit Diagnoses Not on filedocumented in this encounter Care Teams Hotel Operation Manager Relationship Specialty Start Date End Date Ashley Villasenor MD [address] [place] [address] [place] [phone] PCP - General 08/31/20 documented as of this encounter Additional Source Comments The information contained in this document represents components of the legal health record. It is not the complete legal health record.[facility]
--- OUTSIDE RECORDS SUMMARY | 2025-02-22 19:05 | XMS_ITS | Encounter Summary ---
Author Organization [facility] Address [address] [facility] [address] [place] [phone] Phone Care Team Providers Care Patient Coordinator Front Desk Name Role Phone Ashley Villasenor MD Primary Care Provider Encounter Details Date Type Department Care Team (Late st Contact Info) Description 08/24/2020 Ancillary Orders [facility],Outside Imaging [address] [place] [address] System, Provider Not In, PhD Partners [address] [address] Social History Tobacco Use Types Packs/Day Years [...] encounter Results * Mammogram Outside (No Interpretation) (05/23/2020 12:00 AM EST) Narrative SYSTEMGENERATED, DOCUMENTATION - 08/24/2020 12:01 PM EDT This study is for PACS storage only and not for interpretation. us Provider Not In System PhD IMG OUTSIDE IMAGING W /OUT INTERPRETATION Final Result documented in this encounter Visit Diagnoses Not on filedocumented in this encounter Care Teams Patient Coordinator Front Desk Relationship Specialty Start Date End Date Ashley Villasenor MD [address] [place] [address] [place] [phone] PCP - General 08/31/20 documented as of this encounter Additional Source Comments The information contained in this document represents components of the legal health record. It is not the complete legal health record.[facility]
--- OUTSIDE RECORDS SUMMARY | 2025-02-22 19:05 | XMS_ITS | Encounter Summary ---
Author Organization [facility] Address [address] [facility] [address] [place] [address] Phone Care Team Providers Care Employment Law Specialist Name Role Phone Ashley Villasenor MD Primary Care Provider Encounter Details Date Type Department Care Team (Late st Contact Info) Description 08/24/2020 Ancillary Orders [facility],Outside Imaging [address] [place] [address] System, Provider Not In, PhD Partners [address] [address] Social History Tobacco Use Types Packs/Day Years [...] documented as of this encounter Results * US Breast Outside (No Interpretation) (07/26/2020 12:00 AM EST) Narrative SYSTEMGENERATED, DOCUMENTATION - 08/24/2020 12:04 PM EDT This study is for PACS storage only and not for interpretation. us Provider Not In System PhD IMG OUTSIDE IMAGING W /OUT INTERPRETATION Final Result documented in this encounter Visit Diagnoses Not on filedocumented in this encounter Care Teams Employment Law Specialist Relationship Specialty Start Date End Date Ashley Villasenor MD [address] [place] [address] [place] [phone] PCP - General 08/31/20 documented as of this encounter Additional Source Comments The information contained in this document represents components of the legal health record. It is not the complete legal health record.[facility]
--- OUTSIDE RECORDS SUMMARY | 2025-02-22 19:05 | XMS_ITS | Encounter Summary ---
Author Organization [facility] Address [address] [facility] [address] [place] [phone] Phone Care Team Providers Care Saw Man Name Role Phone Ashley Villasenor MD Primary Care Provider Encounter Details Date Type Department Care Team (Late st Contact Info) Description 08/24/2020 Ancillary Orders [facility],Outside Imaging [address] [place] [address] System, Provider Not In, PhD Partners [address] [address] Social History Tobacco Use Types Packs/Day Years [...] Results * US Breast Outside (No Interpretation) (07/17/2020 12:05 AM EST) Narrative SYSTEMGENERATED, DOCUMENTATION - 08/24/2020 12:04 PM EDT This study is for PACS storage only and not for interpretation. us Provider Not In System PhD IMG OUTSIDE IMAGING W /OUT INTERPRETATION Final Result documented in this encounter Visit Diagnoses Not on filedocumented in this encounter Care Teams Saw Man Relationship Specialty Start Date End Date Ashley Villasenor MD [address] [place] [address] [place] [phone] PCP - General 08/31/20 documented as of this encounter Additional Source Comments The information contained in this document represents components of the legal health record. It is not the complete legal health record.[facility]
--- OUTSIDE RECORDS SUMMARY | 2025-02-22 19:05 | XMS_ITS | Encounter Summary ---
Author Organization [facility] Address [address] [facility] [address] [place] [phone] Phone Care Team Providers Care Silver Plater Name Role Phone Ashley Villasenor MD Primary Care Provider Encounter Details Date Type Department Care Team (Late st Contact Info) Description 08/24/2020 Ancillary Orders [facility],Outside Imaging [address] [place], [place] [phone] System, Provider Not In, PhD Partners [address] [address] Social History Tobacco Use Types Packs/Day Years [...] on file documented as of this encounter Visit Diagnoses Not on filedocumented in this encounter Care Teams Silver Plater Relationship Specialty Start Date End Date Ashley Villasenor MD [address] [place] [address] [place] [phone] PCP - General 08/31/20 documented as of this encounter Additional Source Comments The information contained in this document represents components of the legal health record. It is not the complete legal health record.[facility]
[2025-02-22 19:13] LABS: Troponin-I High Sensitivity 90.5 ng/L (<3.5-17.0)
[2025-02-22 19:43] VITALS: BP 169/94
[2025-02-22] MEDS: Furosemide 40 MG/4 ML VIAL IVPUSH (19:43)
[2025-02-22 19:44] VITALS: BP 169/94; PULSE 97
[2025-02-22] MEDS: Nitroglycerin 2 % Oint 1 GM Packet 0.5 INCH TRANSDERMA (19:44)
[2025-02-22 19:48] LABS: Appearance Urine Clear; Glucose Urine UA Negative (Negative); PH 5.5 (5.0-9.0); Specific Gravity - Urine >= 1.030 (1.005-1.025)
[2025-02-22 20:02] VITALS: BP 165/100; PULSE 87; RESP 18; TEMP 36.4; O2SAT 99
--- NOTE | 2025-02-22 20:02 | PM.IMHP ---
History of Present Illness Date of Service: 02/22/25 Attending physician on admission: Nathan Sotomayor Chief Complaint: swollen neck veins Janneth Frye is a 69 years old woman with a past medical history significant for left breast CA status post lumpectomy (2020, completed adjuvant chemotherapy; adjuvant chemotherapy was deferred); hyperlipidemia and essential hypertension presents to the emergency department complaining of swollen neck veins. She noted this yesterday. She also reported some swelling to her left face, left arm and left leg. She did not report significant chest pain. She does have dizziness and some shortness on breath upon walking. She has occasional cough which she attributes to her asthma. Denied wheezing, fever, chills, nausea, vomiting, abdominal pain, diarrhea or pain with urination. She has no history of tobacco smoking, alcohol abuse or illicit drug use. Patient denied history of myocardial infarction, arrhythmias or congestive heart failure. She does not have history of diabetes mellitus, GERD or kidney disease. In the ED, her vital signs are remarkable for hypertension, last blood pressure is 165/100. Other vital signs are normal. Blood workup showed no leukocytosis. Hemoglobin is 12.7 and platelets 161. INR is 1.1. There is mild hypernatremia 147 and no other electrolyte imbalances. Renal function is normal. Transaminases are mildly elevated, bilirubin and alk-phos are normal. Troponin is elevated at 88.4 then 90.5. Chest CTA showed no evidence of PE, however, it showed bilateral pleural effusion, left larger than right and a mild degree of interstitial edema and small pericardial effusion. Left lower extremity venous ultrasound is negative for DVT. ECG showed sinus rhythm with marked sinus arrhythmia, low voltages and no obvious acute ischemic changes. ED tx: Furosemide 40 mg IV, nitroglycerin 0.5 in transdermal patch. Review of Systems Review of Systems: All 12 systems were reviewed and normal except as noted in HPI. [facility] Medical History Breast cancer History of high cholesterol Asthma HTN (hypertension) Arthritis Abnormal mammogram of left breast Family History Mother Arthritis Alzheimer disease Surgical History History of lumpectomy of left breast Social History Are you a primary post acute care nurse practitioner to a significant other at home: No Alcohol intake: never Patient Tobacco Use Status: Never used Tobacco Smoked in Last 30 Days: No Use of substances other than those prescribed or required for medical reasons: No Advance Directives: No Advance Directives Information Provided: Yes Nutrition Risks: No Nutritional Risk Current occupational status: unemployed Current occupation: rt hand Meds Allergies Allergy/AdvReac Type Severity Reaction Status Date / Time morphine (MORPHINE) Allergy Unknown STATES Verified 02/22/25 15:30 TABLET FORM CAUSES SHAKING Active Medications: Current Medications Acetaminophen (Acetaminophen 325 Mg Tablet) 975 mg PO Q6H PRN PRN Reason: Pain, Mild 1-3,fever,headache Aspirin (Aspirin 81 Mg Tab.Chew) 81 mg PO DAILY KALYN Calcium Carbonate (Calcium Carbonate 750 Mg Tab.Chew) 750 mg PO Q4H PRN PRN Reason: Heartburn Enoxaparin Sodium (Enoxaparin Sodium 40 Mg/0.4 Ml Syringe) 40 mg SUBCUT Q24H KALYN Furosemide (Furosemide 20 Mg/2 Ml Vial) 20 mg IVPUSH BID@0900,1800 [facility]; Protocol Magnesium Hydroxide (Milk Of Magnesia 30 Ml Oral.Susp) 30 ml PO DAILY PRN PRN Reason: Constipation Melatonin (Melatonin 3 Mg Tablet) 6 mg PO BEDTIME PRN PRN Reason: Insomnia Montelukast Sodium (Montelukast Sodium 10 Mg Tablet) 10 mg PO DAILY [facility] Non-Formulary Medication (Rosuvastatin) 40 mg PO DAILY [facility] Ondansetron HCl (Ondansetron Hcl 4 Mg/2 Ml Vial) 4 mg IVPUSH Q8H PRN PRN Reason: Nausea and Vomiting Sodium Chloride (0.9 % Sodium Chloride Flush 3 Ml Syringe) 3 ml IVFLUSH QSHIFT [facility] Home Medications ?Medication ?Instructions ?Recorded ?Confirmed ?Last Taken ?Type albuterol sulfate 2.5 mg/3 mL 2.5 mg inhalation Q4-6H 03/05/20 06/28/24 Unknown History (0.083 %) solution for nebulization albuterol sulfate 90 mcg/actuation 90 mcg inhalation DAILY 03/05/20 06/28/24 Unknown History aerosol inhaler acetaminophen 500 mg tablet 500 mg PO TID PRN fever 10/16/23 06/28/24 Unknown History losartan 50 mg-hydrochlorothiazide 1 tab PO DAILY 10/16/23 02/22/25 Unknown History 12.5 mg tablet montelukast 10 mg tablet 10 mg PO DAILY 02/22/25 02/22/25 Unknown History rosuvastatin 40 mg tablet 40 mg PO DAILY 02/22/25 02/22/25 Unknown History Physical Exam Vital Signs and Narrative: Vital Signs: Last Vital Signs Temp 97.8 F 02/22/25 17:38 Pulse 97 02/22/25 19:44 Resp 18 02/22/25 17:38 BP 169/94 H 02/22/25 19:44 Pulse Ox 97 02/22/25 17:38 O2 Del Method Room Air 02/22/25 17:38 BMI result Body Mass Index 27.7 Constitutional - Awake and Alert, No apparent distress HEENT - PER, EOMI. Neck veins somewhat dilated. Heart - RRR, distant heart sounds Lungs - Normal lung expansion, Normal respiratory effort, No respiratory distress, CTA bilaterally Abdomen - NT / ND; +BS; No rebound or guarding Extremities - mild pitting edema to the lower extremity (left more than right). No erythema or hyperpigmentation noted. Musculoskeletal - Normal inspection, normal ROM Skin - Warm/Dry Neurological - Alert & oriented x3. Moving all extremities spontaneously. Normal speech. Psychological - Appropriate affect Results Labs 02/22/25 15:42 02/22/25 15:42 Labs: Laboratory Results - last 24 hr 02/22/25 02/22/25 02/22/25 15:42 18:30 19:41 MCV 99.2 H MCH 32.5 MCHC 32.7 RDW 13.7 Plt Count 161 MPV 10.2 Immature Gran % (Auto) 0.2 Neut % (Auto) 58.3 Lymph % (Auto) 28.9 [place] % (Auto) 7.0 Eos % (Auto) 5.2 H Baso % (Auto) 0.4 Lymph # (Auto) 1.6 [place] # (Auto) 0.4 Eos # (Auto) 0.3 Baso # (Auto) 0.0 Abs Immat Gran (auto) 0.01 Absolute Neuts (auto) 3.3 Absolute Nucleated RBC 0.000 Nucleated RBC % (auto) 0.0 PT 13.0 H INR 1.1 APTT 28.5 D-Dimer High Sensitivty 304 Anion Gap 12 Estim Creat Clear Calc 60.5 Estimated GFR > 60 Random Glucose 106 Calcium 9.2 D Total Bilirubin 0.6 AST 63 H ALT 67 H Alkaline Phosphatase 70 Troponin I High Sens 88.4 H* 90.5 H* B-Natriuretic Peptide 626 H Total Protein 5.9 L Albumin 4.1 Urine Color Yellow Urine Appearance Clear Urine pH 5.5 Ur Specific [place] >= 1.030 H Urine Protein Negative Urine Glucose (UA) Negative Urine Ketones Negative Urine Blood Negative Urine Nitrite Negative Ur Leukocyte Esterase Negative COVID-19 (SILVIANO) Negative COVID-19 Clin Com See Note Influenza Type A (CLAIRE) Negative Influenza Type B (CLAIRE) Negative Influenza A & B Note See Note Assessment and Plan (1) Bilateral pleural effusion: Status: Acute (2) Pericardial effusion: Status: Acute Plan Janneth Frye is a 69 y/o woman with a PMHx significant for invasive ductal carcinoma of the left breast on letrozole s/p lumpectomy with needle localization and left axillary sentinel node biopsy in 2020; on remission, completed adjuvant radiation; adjuvant chemotherapy was deferred presents with: Bilateral pleural effusion, left more than right associated with small pericardial effusion. Possible acute congestive heart failure/cardiomyopathy and/or malignant effusions (often unilateral but can be bilateral). No hypoalbuminemia. No hx of CHF or VA. Chest CTA showed no PE. Continue furosemide 20 mg IV b.i.d.. Start aspirin 325 mg p.o. now then 81 mg p.o. daily. Nitro ointment placed by ED. Intake and output. Daily weight. Obtain TTE. Cardiology and IR consult (to consider therapeutic and diagnostic thoracentesis). Elevated troponin, likely secondary to above. No chest pain. Trend troponin. Will consider anticoagulation if worsening troponin and/or chest pain. Cardiology consult. Essential hypertension. Continue losartan. Hold HCTZ as pt is receiving furosemide. Nitro ointment placed by ED. Hyperlipidemia. Continue statin. Severe persistent asthma. Continue home inhalers. Code status: Full DVT prophylaxis: Lovenox Patient will need hospitalization for at least 2 midnights for bilateral pleural effusions therapy with IV diuresis, possible thoracentesis and evaluation by subspecialty. Quality Stroke Does the patient have a stroke diagnosis?: No VTE Prior VTE?: No VTE Risk Level:: Medical - moderate - high VTE Device Contraindication: Treatment Not Indicated VTE Drug Contraindication: N/A - Med Ordered
[2025-02-22] MEDS: Aspirin Enteric Coated 325 MG TABLET.DR PO (20:09)
--- NOTE | 2025-02-22 20:16 | PC.NURSE ---
Patient ambulated to restroom and back to her room with a rollator walker and RN supervision. Patient reported dizziness with ambulation. Dr. Fletcher made aware. Patient medicated per AUG. Purewick placed for comfort/assist in I&O monitoring/fall prevention, rn cardiac cath in place, HR 80-90 sinus arrhythmia, O2 Sat 97-98% on RA. Patient currently resting in stretcher bed, offers no complaints at present, call [facility] in patient's reach
--- NOTE | 2025-02-22 21:21 | PHA.MEDREC ---
Addendum entered by Opal Aguilar 02/23/25 09:54: [facility] confirmed Losartin -HCTZ daily. All other medication has not been picked up. Original Note: Pharmacy Consult ? Medication Reconciliation Pharmacy has completed the medication reconciliation with an nurses director. Patient could only confirm a few medications - rosuvastatin, losartan-hctz and montelukast. Reported she has two inhalers, a blue and purple one but did not know the names. She said that she does not take either inhaler every day. Reports she is out of letrazole and has a follow-up appointment soon, therefore did not include in home list. Reported she run out of VitD3 and vit b12 as well. She said she has a long list therefore will have morning pharmacist call [facility] pharmacy to confirm any missing medications. Malorie Soriano, PharmD
[2025-02-22 22:49] VITALS: BP 131/82; PULSE 86; RESP 19; TEMP 36.4; O2SAT 97
[2025-02-23] VITALS (7 sets, daily range): BP systolic 128–157; BP diastolic 75–94; PULSE 71–82; RESP 16–18; TEMP 36.4–36.8; O2SAT 98–99; BMI 28.0
--- NOTE | 2025-02-23 00:24 | HO.NURTONUR ---
Janneth Frye is a 69 y/o Occitan Speaking female with a PMHx significant for invasive ductal carcinoma of the left breast on letrozole s/p lumpectomy with needle localization and left axillary sentinel node biopsy in 2020; in remission, completed adjuvant radiation; adjuvant chemotherapy was deferred. Per Dr Chance MONTANEZ to have IV line in L AC, no BP checks on left arm. Patient presented to ED for SOB x1 day and facial swelling x 2days. In ED, work up revealed Trop 88.4, repeat trop 90.5, BNP 626. CTA- for PE, + for b/l pleural effusion L>R with small pericardial effusion. Possible acute congestive heart failure/cardiomyopathy and/or malignant effusions. No hx of CHF or CO. IN ED patient received 40 mg IV Lasix, plan for IV furosemide 20 mg b.i.d, Start aspirin 325 mg p.o. now then 81 mg p.o. daily. Nitro ointment 0.5 placed by ED. Cardiology and IR consult (to consider therapeutic and diagnostic thoracentesis), echo. Patient denies any pain, plan to monitor trop, will consider anticoagulation if worsening trop and/or chest pain, IV diuresis, possible thoracentesis and evaluation by specialty. patient is alert and oreitned x4, pleasant and cooperative, VSS, purewick in palce, ambulates with a rollator walker and supervision, reported dizziness with ambulation. IV access: 20 R AC.
[2025-02-23 03:01] LABS: Magnesium 1.9 mg/dL (1.6-2.6)
[2025-02-23 03:35] LABS: Troponin-I High Sensitivity 104.7 ng/L (<3.5-17.0)
[2025-02-23 06:50] LABS: MANUAL DIFF FLAG NO
[2025-02-23 06:58] LABS: Hematocrit 36.9 % (37.0-47.0); Hemoglobin 12.1 g/dl (12.0-16.0); Imm Gran Abs Auto 0.02 X10*3/uL (0.00-0.03); Imm Gran Pct Auto 0.3 % (0.0-0.4); Lymphocytes Absolute Auto 1.7 X10*3/uL (1.2-4.9); Mean Corpuscular HGB Conc 32.8 g/dl (31.0-35.0); Mean Corpuscular Hemoglobin 32.5 pg (27.0-33.0); Mean Corpuscular Volume 99.2 fL (80.0-98.0); NRBC Abs Auto 0.000 X10*3/uL (0.0-0.012); NRBC Pct Auto 0.0 /100WBC (0.0-0.2); Platelet Count 149 X10*3/uL (160-400); Red Blood Count 3.72 X10*6/uL (4.20-5.50); White Blood Count 5.8 X10*3/uL (4.8-10.8)
--- NOTE | 2025-02-23 07:00 | CA_ITS ---
Transthoracic Echocardiogram Patient (Last, First, Middle): Janneth Cosby E Gender: Female Date of : 1955 Age: 69 Procedure Date: 02/23/2025 Procedure Type: Transthoracic Echocardiogram Location[place] [facility] [place] Height: 162.56 cm Weight: 73.94 kg BSA: 1.79 m2 Heart Rate: 86 bpm BP: 128 / 75 mmHg Tire Installer: ROLANDO/SHAHZAD Referring MD: Nathan Sotomayor MD Symptoms: pericardial effusion, CHF, elevated troponin Study Quality: Adequate ECG Rhythm: Sinus Conclusions: - The left ventricular systolic function is normal. The visually estimated ejection fraction is between 60-65%. - There is moderately increased left ventricular wall thickness. - Evidence suggests grade III (severe) diastolic dysfunction. - No obvious valvular pathology seen on this study. - Mild pulmonary hypertension is present. - There is a small pericardial effusion. Findings Left Ventricle Normal left ventricular cavity size. There is moderately increased left ventricular wall thickness. The left ventricular systolic function is normal. The visually estimated ejection fraction is between 60-65%. There is no evidence of regional wall motion abnormalities. Evidence suggests grade III (severe) diastolic dysfunction. Right Ventricle Normal right ventricular cavity size. There is mildly decreased right ventricular systolic function. Atria Mild biatrial enlargement. Aortic Valve There is a normal trileaflet aortic valve. There is no aortic valve stenosis. There is no aortic valve regurgitation. Mitral Valve There is mild mitral annular calcification. There is trace mitral valve regurgitation. There is no mitral valve stenosis. Pulmonic Valve There is trace to mild pulmonic valve regurgitation. Tricuspid Valve There is trace tricuspid valve regurgitation. Mild pulmonary hypertension is present. Great Vessels The asc aorta is normal in size. Moderate plaque is seen in the sino tubular ridge. Venous The inferior vena cava is mildly dilated and collapses less than 50% with inspiration. Pericardium/Pleural There is a small pericardial effusion. Most prominent over the left ventricle. Prior Study Comparison No prior study available for comparison. Recommendations, Care & Conclusions No obvious valvular pathology seen on this study. Measurements 2D Linear Measurements IVSd: 1.64 0.6-0.9/0.6-1.0 cm LVIDd: 3.47 3.9-5.3/4.2-5.9 cm LVIDd Index: 1.94 2.4-3.2/2.2-3.1 cm/m2 LVIDs: 2.83 2.0-3.6 cm LVPWd: 1.53 0.7-1.1 cm LA Diam: 4.20 2.7-3.8/3.0-4.0 cm LAIDs Index: 2.35 1.5-2.3 cm/m2 LV Mass: 261.01 67-162/88-224 g LV Mass Index: 145.82 43-95/49-115 g/m2 LVOT Diam: 1.90 3.0+(-)1.3 cm 2D Systolic Function EF 4C: 63.60 >55% EF 2C: 53.70 >55% EF BiP: 59.40 >55% Mitral Valve MV Pk E: 1.10 MV PK A: 0.39 MV Decel Time: 214.00 E/A: 2.80 E'Lateral: 4.24 E'Medial: 3.30 E/E' Med: 33.30 E/E' Lat: 25.90 PHT: 63.00 MVA PHT: 3.49 Decel Mccreary: 5.15 Aortic Valve AoV Pk Riki: 1.43 AoV Mn Riki: 1.02 AoV VTI: 0.26 AoV Pk Grad: 8.00 Aov Mn Grad: 5.00 ASHANTI Cont.VTI: 2.23 LVOT LVOT Pk Riki: 1.15 LVOT Mn Riki: 0.78 LVOT VTI: 0.20 LVOT Pk Grad: 5.00 LVOT Mn Grad: 3.00 LVOT Diam: 1.90 LVOT Area: 2.84 Diastolic Function MV Pk E: 1.10 MV Pk A: 0.39 E/A: 2.80 E'Medial: 3.30 E/E' Med: 33.30 E' Laterial: 4.24 E/E' Lat: 25.90 Right Ventricle TAPSE (mm): 11.80 TVS' Riki: 7.90 Tricuspid Valve TR Pk Riki: 2.56 TR Pk Grad: 26.00 RA Press: 15.00 RVSP: 41.00 Great Vessels Aorta Sinus of Valsalva: 3.00 2.0-3.5 cm Ao Asc: 3.30 2.1-3.4 cm Ao Arch: 2.90 Pulmonary Veins Pulm Vein S/D 0.50 Pulmonary Valve PV Pk Riki: 0.87 Peak PV Grad: 3.00 NJ Pk Riki: 2.55 Updated in Other Vendor System with Status of Final Arpan Voss MD electronically signed on 02/24/2025 8:44:45 AM with status of Final
[2025-02-23 07:06] LABS: Hemoglobin A1C 121.0474 umol/L; Total Hemoglobin (HGBA1C) 3165.3313 umol/L
[2025-02-23 07:16] LABS: Anion Gap 11 (12-20); Blood Urea Nitrogen 10 mg/dL (9-16); Calcium 8.9 mg/dL (8.4-10.2); Carbon Dioxide 29 mmol/L (22-29); Chloride 108 mmol/L (96-108); Creatinine Clr Calc Pharmacy 59.4; Estimated Glomerular Filt Rate > 60; Magnesium 1.8 mg/dL (1.6-2.6); Potassium 3.0 mmol/L (3.3-5.1); Sodium 145 mmol/L (135-145)
[2025-02-23 07:23] LABS: Cholesterol 116 mg/dL (<200); HDL Cholesterol 43 mg/dL (>40); Triglycerides 59 mg/dL (<150)
--- NOTE | 2025-02-23 07:47 | PC.ADMIT ---
Addendum entered by Hannah Ramsey RN 02/23/25 07:54: Pt moves all extremities with ease. Original Note: Pt arrived to unit at 0200 via stretcher from ED. Upon arrival, pt in pain and screaming. Blow Mold Technician called to bedside. Pt c/o leg cramps, states this is not new and that she has had this before. C/o tingling to BLE with cramps, again stating she has had this before. MD was notified of this, MD recommended giving PRN tylenol. This was given per MAR with good effect. Purewik in place for pt comfort. Pt resting in bed with daughter at bedside. Plan of care continues.
[2025-02-23 08:05] LABS: Reflex LDLD? No
[2025-02-23] MEDS: 0.9 % Sodium Chloride Flush 3 ML SYRINGE IVFLUSH ×3 (08:17→20:18)
--- NOTE | 2025-02-23 09:08 | MHC.CM.PN ---
Addendum entered by Symone Henriquez 02/23/25 12:58: CM met with Patient at bedside, with the assist of a Microbiology Lab Assistant and addressed IMM with her (original was given to Patient and a copy has been placed on the chart). Patient lives in a house with her oldest Son and she uses a walker to assist with mobility. Patient states that she has no home services, I come to the hospital when I'm sick. PCP is Dr. Ashley Villasenor and Daughter will transport to home at time of dc. Son/Maury is the HCP. Addendum entered by Symone Henriquez 02/23/25 11:06: CM attempted to meet with Patient but she is getting a bedside ECHO.CM will continue to follow. Original Note: CM attempted to meet with Patient and her visitor/family member to determine if a Microbiology Lab Assistant was definitely needed. CM returned to Patient's room, with a Microbiology Lab Assistant and Patient had gone down for a Thoracentesis. CM indicated that it was no problem to return later, after Patient's procedure. CM will follow.
--- NOTE | 2025-02-23 10:04 | PM.CNCAR ---
History of Present Illness History of Present Illness Date of Service: 02/23/25 Chief complaint: Acute CHF Narrative: This is a cardiology consultation regarding question of congestive heart failure. Patient does not have any known cardiac issues. He denies any history of coronary disease myocardial infarction or cardiomyopathy or in fact any cardiac issues whatsoever. Per notes, history of left breast cancer, status post lumpectomy and she is apparently completed chemotherapy. Has a history of hypertension and hyperlipidemia. She presented to the ER with question of swollen neck veins. Apparently she had reported some swelling to her left face, left arm and left leg. However, no clear anginal-type chest pains. Some shortness of breath with activity but she states she has had asthma since the age of 9 or so and she has had inhalers for decades. Specifically, she has got no heart failure history. In the CTA chest, noted to have bilateral pleural effusions and possibly mild degree of interstitial edema. Small pericardial effusion. We are asked to assess for cardiac standpoint. Review of Systems Review of Systems: Yes all other systems are reviewed and are negative Constitutional: Constitutional: Reports as per HPI and Reports no additional constitutional complaints Eyes: Eyes: Reports as per HPI and Denies no additional eye complaints ENT: Denies system reviewed and no additional complaints, except as documented and Reports as per HPI Cardiovascular: Cardiovascular: Reports as per HPI, Reports no additional cardiovascular complaints, Denies acrocyanosis, Denies cool extremities, Denies chest pain, Denies leg edema, Denies lightheadedness, Denies palpitations and Reports dyspnea Respiratory: Respiratory: Reports as per HPI, Denies no additional respiratory complaints and Reports dyspnea Gastrointestinal: Gastrointestinal: Reports as per HPI and Denies no additional gastrointestinal complaints Genitourinary: Genitourinary: Reports as per HPI Musculoskeletal: Musculoskeletal: Reports no additional musculoskeletal complaints and Reports as per HPI Integumentary/Breasts: Skin/Breast: Reports system reviewed and no additional complaints, except as docu Neurologic: Reports system reviewed and no additional complaints, except as documented and Reports as per HPI Psychiatric: Psychiatric: Reports no additional psychiatric complaints and Reports as per HPI Endocrine: Endocrine: Reports no additional endocrine complaints, Reports as per HPI and Denies palpitations Hematologic/Lymphatic: Hematologic/Lymphatic: Reports no additional hematologic/lymphatic complaints and Reports as per HPI Allergic/Immunologic: Allergic/Immunologic: Reports no additional allergic/immunologic complaints and Reports as per HPI [facility] Past Medical History Medical History (Updated 02/23/25 @ 10:09 by Arpan Voss MD) Breast cancer History of high cholesterol Asthma HTN (hypertension) Arthritis Abnormal mammogram of left breast Family History Family History Mother Arthritis Alzheimer disease Surgical History Surgical History History of lumpectomy of left breast Social History Social History Household Members: Family Housing: House Are you a primary resident care aide to a significant other at home: No Do you presently have visiting nurse or other home services: No Alcohol intake: never Patient Tobacco Use Status: Never used Tobacco e-Cigarette/Vaping Use: Never Used Current occupational status: unemployed Current occupation: rt hand Meds Allergies Allergy/AdvReac Type Severity Reaction Status Date / Time morphine (MORPHINE) Allergy Unknown STATES Verified 02/22/25 15:30 TABLET FORM CAUSES SHAKING Active Medications: Current Medications Acetaminophen (Acetaminophen 325 Mg Tablet) 975 mg PO Q6H PRN PRN Reason: Pain, Mild 1-3,fever,headache Last Admin: 02/23/25 03:56 Dose: 975 mg Aspirin (Aspirin 81 Mg Tab.Chew) 81 mg PO DAILY KALYN Atorvastatin Calcium (Atorvastatin Calcium 80 Mg Tablet) 80 mg PO DAILY KALYN Calcium Carbonate (Calcium Carbonate 750 Mg Tab.Chew) 750 mg PO Q4H PRN PRN Reason: Heartburn Enoxaparin Sodium (Enoxaparin Sodium 40 Mg/0.4 Ml Syringe) 40 mg SUBCUT Q24H KALYN Furosemide (Furosemide 20 Mg/2 Ml Vial) 20 mg IVPUSH BID@0900,1800 KALYN; Protocol Losartan Potassium (Losartan Potassium 50 Mg Tablet) 50 mg PO DAILY KALYN; Protocol Magnesium Hydroxide (Milk Of Magnesia 30 Ml Oral.Susp) 30 ml PO DAILY PRN PRN Reason: Constipation Melatonin (Melatonin 3 Mg Tablet) 6 mg PO BEDTIME PRN PRN Reason: Insomnia Montelukast Sodium (Montelukast Sodium 10 Mg Tablet) 10 mg PO DAILY KALYN Ondansetron HCl (Ondansetron Hcl 4 Mg/2 Ml Vial) 4 mg IVPUSH Q8H PRN PRN Reason: Nausea and Vomiting Sodium Chloride (0.9 % Sodium Chloride Flush 3 Ml Syringe) [facility] Last Admin: 02/23/25 08:17 Dose: 3 ml Home Medications ?Medication ?Instructions ?Recorded ?Confirmed ?Last Taken ?Type albuterol sulfate 2.5 mg/3 mL 2.5 mg inhalation Q4-6H PRN 03/05/20 06/28/24 Unknown History (0.083 %) solution for nebulization Shortness Of Breath albuterol sulfate 90 mcg/actuation 90 mcg inhalation Q6H PRN 03/05/20 02/22/25 Unknown History aerosol inhaler Shortness Of Breath Or Wheezing acetaminophen 500 mg tablet 500 mg PO TID PRN fever 10/16/23 02/22/25 Unknown History losartan 50 mg-hydrochlorothiazide 1 tab PO DAILY 10/16/23 02/22/25 Unknown History 12.5 mg tablet montelukast 10 mg tablet 10 mg PO DAILY 02/22/25 02/22/25 Unknown History rosuvastatin 40 mg tablet 40 mg PO DAILY 02/22/25 02/22/25 Unknown History Physical Exam Vital Signs: Vital Signs: Last Vital Signs Temp 97.5 F 02/23/25 07:46 Pulse 71 02/23/25 07:46 Resp 18 02/23/25 07:46 BP 128/75 02/23/25 07:46 Pulse Ox 98 02/23/25 07:46 O2 Del Method Room Air 02/23/25 07:46 BMI result Body Mass Index 28.0 Const: General: comfortable and no acute distress Orientation/consciousness: patient oriented x3 HEENT: Other: Unremarkable Head: Yes normal to inspection Neck: Neck: Yes normal visual inspection Chest: Chest palpation & inspection: normal inspection of the chest Resp: Auscultation: clear to auscultation bilaterally Cardio: Palpation: normal PMI Heart sounds: S1 normal heart sound present, S2 normal heart sound present, no gallops, no murmurs and no rubs GI: Palpation (GI): Soft to palpation Back/Spine/Pelvis: Other: unremarkable Skin: General skin exam: no rashes or lesions noted Neuro: General: patient oriented x3 Extrem: General: Yes normal to inspection Psych: Mental Status: mental status grossly normal Objective Labs and Meds 02/23/25 06:19 02/23/25 06:19 Lab results: Laboratory Results - last 24 hr 02/22/25 02/22/25 02/22/25 15:42 18:30 19:41 WBC 5.6 RBC 3.91 L Hgb 12.7 Hct 38.8 MCV 99.2 H MCH 32.5 MCHC 32.7 RDW 13.7 Plt Count 161 MPV 10.2 Immature Gran % (Auto) 0.2 Neut % (Auto) 58.3 Lymph % (Auto) 28.9 [place] % (Auto) 7.0 Eos % (Auto) 5.2 H Baso % (Auto) 0.4 Lymph # (Auto) 1.6 [place] # (Auto) 0.4 Eos # (Auto) 0.3 Baso # (Auto) 0.0 Abs Immat Gran (auto) 0.01 Absolute Neuts (auto) 3.3 Absolute Nucleated RBC 0.000 Nucleated RBC % (auto) 0.0 PT 13.0 H INR 1.1 APTT 28.5 D-Dimer High Sensitivty 304 Sodium 147 H Potassium 3.7 Chloride 112 H Carbon Dioxide 27 Anion Gap 12 BUN 11 Creatinine 0.86 Estim Creat Clear Calc 60.5 Estimated GFR > 60 Random Glucose 106 Estimat Average Glucose Hemoglobin A1c % Calcium 9.2 D Magnesium 1.9 Total Bilirubin 0.6 AST 63 H ALT 67 H Alkaline Phosphatase 70 Troponin I High Sens 88.4 H* 90.5 H* B-Natriuretic Peptide 626 H Total Protein 5.9 L Albumin 4.1 Triglycerides Cholesterol LDL Cholesterol, Calc HDL Cholesterol TSH Urine Color Yellow Urine Appearance Clear Urine pH 5.5 Ur Specific [place] >= 1.030 H Urine Protein Negative Urine Glucose (UA) Negative Urine Ketones Negative Urine Blood Negative Urine Nitrite Negative Ur Leukocyte Esterase Negative COVID-19 (SILVIANO) Negative COVID-19 Clin Com See Note Influenza Type A (CLAIRE) Negative Influenza Type B (CLAIRE) Negative Influenza A & B Note See Note 02/23/25 02/23/25 02:48 06:19 WBC 5.8 RBC 3.72 L Hgb 12.1 Hct 36.9 L MCV 99.2 H MCH 32.5 MCHC 32.8 RDW 13.7 Plt Count 149 L MPV 10.5 Immature Gran % (Auto) 0.3 Neut % (Auto) 54.2 Lymph % (Auto) 29.8 [place] % (Auto) 8.1 Eos % (Auto) 7.1 H Baso % (Auto) 0.5 Lymph # (Auto) 1.7 [place] # (Auto) 0.5 Eos # (Auto) 0.4 Baso # (Auto) 0.0 Abs Immat Gran (auto) 0.02 Absolute Neuts (auto) 3.1 Absolute Nucleated RBC 0.000 Nucleated RBC % (auto) 0.0 PT INR APTT D-Dimer High Sensitivty Sodium 145 Potassium 3.0 L Chloride 108 Carbon Dioxide 29 Anion Gap 11 L BUN 10 Creatinine 0.88 Estim Creat Clear Calc 59.4 Estimated GFR > 60 Random Glucose 101 Estimat Average Glucose 117 Hemoglobin A1c % 5.7 Calcium 8.9 Magnesium 1.8 Total Bilirubin AST ALT Alkaline Phosphatase Troponin I High Sens 104.7 H* B-Natriuretic Peptide Total Protein Albumin Triglycerides 59 Cholesterol 116 LDL Cholesterol, Calc 62 HDL Cholesterol 43 TSH 1.84 Urine Color Urine Appearance Urine pH Ur Specific [place] Urine Protein Urine Glucose (UA) Urine Ketones Urine Blood Urine Nitrite Ur Leukocyte Esterase COVID-19 (SILVIANO) COVID-19 Clin Com Influenza Type A (CLAIRE) Influenza Type B (CLAIRE) Influenza A & B Note ECG Interpretation: EKG with underlying sinus rhythm at 91/Min; sinus arrhythmias; low-voltage QRS complexes; cannot exclude old anterior infarct. Could be related to body habitus. Assessment and Plan (1) Congestive heart failure: Status: Acute (2) Pericardial effusion: Status: Acute (3) HTN (hypertension): Status: Acute Plan Labs reviewed. Cardiac BNP 626. High sensitivity Troponin levels are 88, 90, 104. Chest CTA reports small left pleural effusion, trace right pleural effusion and possibly mild interstitial edema. Flecks of contrast into hepatic system. Small pericardial effusion. Mild cardiomegaly. Blood pressures are on the higher side. Overall, possible diastolic heart failure but we will need to review the echocardiogram before any definitive diagnosis. Troponins are mostly related to demand. Somewhat uncommon to just have neck and facial swelling with heart failure and that point more towards any thoracic venous issue. We will follow up with you. Discussed using conference interpreter and also discussed with daughter at the bedside. Procedures Date of Service Date of Service: 02/23/25
[2025-02-23] MEDS: Furosemide 20 MG/2 ML VIAL IVPUSH ×2 (10:49→17:44)
[2025-02-23] MEDS: Flu Vacc TS2025-26(6mo up)/PF 0.5 ML SYRINGE IM (13:12)
--- NOTE | 2025-02-23 14:42 | HO.PM.IMPN ---
Subjective Subjective Date of Service: 02/23/25 Interval History: (All info gleaned with catholic priest). Breathing markedly improved since admission continues to deny chest pain. Review of Systems Denies chest pain Denies shortness of breath Denies nausea vomiting diarrhea Denies fever chills Physical Exam Vital Signs: Vital Signs: Last Vital Signs Temp 97.8 F 02/23/25 12:00 Pulse 80 02/23/25 12:00 Resp 18 02/23/25 12:00 BP 134/80 02/23/25 12:00 Pulse Ox 99 02/23/25 12:00 O2 Del Method Room Air 02/23/25 12:00 BMI result Body Mass Index 28.0 Const: Other: Awake alert no acute distress Resp: Other: Faint crackles in bases Cardio: Other: No S4; positive S1-S2; no S3 murmurs rubs or gallops GI: Other: Soft nontender nondistended normoactive bowel sounds Extrem: Other: No edema bilaterally Objective Data Active Medications Acetaminophen (Acetaminophen 325 Mg Tablet) 975 mg PO Q6H PRN PRN Reason: Pain, Mild 1-3,fever,headache Last Admin: 02/23/25 03:56 Dose: 975 mg Documented By: TD Comments: Per MD Rockwell give tylenol for severe pain Aspirin (Aspirin 81 Mg Tab.Chew) 81 mg PO DAILY [facility] Last Admin: 02/23/25 10:47 Dose: 81 mg Documented By: ASHLYN Atorvastatin Calcium (Atorvastatin Calcium 80 Mg Tablet) 80 mg PO DAILY [facility] Last Admin: 02/23/25 11:01 Dose: Not Given Documented By: ASHLYN Non-Admin Reason: Patient Refused Calcium Carbonate (Calcium Carbonate 750 Mg Tab.Chew) 750 mg PO Q4H PRN PRN Reason: Heartburn Enoxaparin Sodium (Enoxaparin Sodium 40 Mg/0.4 Ml Syringe) 40 mg SUBCUT Q24H [facility] Last Admin: 02/23/25 10:48 Dose: 40 mg Documented By: ASHLYN Furosemide (Furosemide 20 Mg/2 Ml Vial) 20 mg IVPUSH BID@0900,1800 [facility]; Protocol Last Admin: 02/23/25 10:49 Dose: 20 mg Documented By: ASHLYN Losartan Potassium (Losartan Potassium 50 Mg Tablet) 50 mg PO DAILY [facility]; Protocol Last Admin: 02/23/25 10:47 Dose: 50 mg Documented By: ASHLYN Magnesium Hydroxide (Milk Of Magnesia 30 Ml Oral.Susp) 30 ml PO DAILY PRN PRN Reason: Constipation Melatonin (Melatonin 3 Mg Tablet) 6 mg PO BEDTIME PRN PRN Reason: Insomnia Montelukast Sodium (Montelukast Sodium 10 Mg Tablet) 10 mg PO DAILY [facility] Last Admin: 02/23/25 11:01 Dose: Not Given Documented By: ASHLYN Non-Admin Reason: Patient Refused Ondansetron HCl (Ondansetron Hcl 4 Mg/2 Ml Vial) 4 mg IVPUSH Q8H PRN PRN Reason: Nausea and Vomiting Sodium Chloride (0.9 % Sodium Chloride Flush 3 Ml Syringe) 3 ml IVFLUSH QSHIFT [facility] Last Admin: 02/23/25 08:17 Dose: 3 ml Documented By: ASHLYN Labs 02/23/25 06:19 02/23/25 06:19 Labs: Laboratory Results - last 24 hr 02/22/25 02/22/25 02/22/25 15:42 18:30 19:41 MCV 99.2 H MCH 32.5 MCHC 32.7 RDW 13.7 Plt Count 161 MPV 10.2 Immature Gran % (Auto) 0.2 Neut % (Auto) 58.3 Lymph % (Auto) 28.9 [place] % (Auto) 7.0 Eos % (Auto) 5.2 H Baso % (Auto) 0.4 Lymph # (Auto) 1.6 [place] # (Auto) 0.4 Eos # (Auto) 0.3 Baso # (Auto) 0.0 Abs Immat Gran (auto) 0.01 Absolute Neuts (auto) 3.3 Absolute Nucleated RBC 0.000 Nucleated RBC % (auto) 0.0 PT 13.0 H INR 1.1 APTT 28.5 D-Dimer High Sensitivty 304 Anion Gap 12 Estim Creat Clear Calc 60.5 Estimated GFR > 60 Random Glucose 106 Estimat Average Glucose Hemoglobin A1c % Calcium 9.2 D Magnesium 1.9 Total Bilirubin 0.6 AST 63 H ALT 67 H Alkaline Phosphatase 70 Troponin I High Sens 88.4 H* 90.5 H* B-Natriuretic Peptide 626 H Total Protein 5.9 L Albumin 4.1 Triglycerides Cholesterol LDL Cholesterol, Calc HDL Cholesterol TSH Urine Color Yellow Urine Appearance Clear Urine pH 5.5 Ur Specific [place] >= 1.030 H Urine Protein Negative Urine Glucose (UA) Negative Urine Ketones Negative Urine Blood Negative Urine Nitrite Negative Ur Leukocyte Esterase Negative COVID-19 (SILVIANO) Negative COVID-19 Clin Com See Note Influenza Type A (CLAIRE) Negative Influenza Type B (CLAIRE) Negative Influenza A & B Note See Note 02/23/25 02/23/25 02:48 06:19 MCV 99.2 H MCH 32.5 MCHC 32.8 RDW 13.7 Plt Count 149 L MPV 10.5 Immature Gran % (Auto) 0.3 Neut % (Auto) 54.2 Lymph % (Auto) 29.8 [place] % (Auto) 8.1 Eos % (Auto) 7.1 H Baso % (Auto) 0.5 Lymph # (Auto) 1.7 [place] # (Auto) 0.5 Eos # (Auto) 0.4 Baso # (Auto) 0.0 Abs Immat Gran (auto) 0.02 Absolute Neuts (auto) 3.1 Absolute Nucleated RBC 0.000 Nucleated RBC % (auto) 0.0 PT INR APTT D-Dimer High Sensitivty Anion Gap 11 L Estim Creat Clear Calc 59.4 Estimated GFR > 60 Random Glucose 101 Estimat Average Glucose 117 Hemoglobin A1c % 5.7 Calcium 8.9 Magnesium 1.8 Total Bilirubin AST ALT Alkaline Phosphatase Troponin I High Sens 104.7 H* B-Natriuretic Peptide Total Protein Albumin Triglycerides 59 Cholesterol 116 LDL Cholesterol, Calc 62 HDL Cholesterol 43 TSH 1.84 Urine Color Urine Appearance Urine pH Ur Specific [place] Urine Protein Urine Glucose (UA) Urine Ketones Urine Blood Urine Nitrite Ur Leukocyte Esterase COVID-19 (SILVIANO) COVID-19 Clin Com Influenza Type A (CLAIRE) Influenza Type B (CLAIRE) Influenza A & B Note Assessment and Plan (1) Congestive heart failure: Status: Acute (2) HTN (hypertension): Status: Acute Plan Janneth Frye is a 69 y/o woman with a PMHx significant for invasive ductal carcinoma of the left breast on letrozole s/p lumpectomy with needle localization and left axillary sentinel node biopsy in 2020; on remission, completed adjuvant radiation; adjuvant chemotherapy was deferred presents with: 1. Bilateral pleural effusion likely in backdrop of CHF -continues in sinus rhythm on monitor -2D echo done. . . Await Read -appreciate cardiology input 2.HTN -acceptable control on current therapy -adjust as indicated 3. Asthma -stable and well compensated Code status: Full DVT prophylaxis: Lovenox Requires ongoing hospitalization to complete workup for acute CHF and Cardiology consultation Quality Stroke Does the patient have a stroke diagnosis?: No VTE Prior VTE?: No VTE Risk Level:: Medical - moderate - high VTE Device Contraindication: Treatment Not Indicated VTE Drug Contraindication: N/A - Med Ordered
[2025-02-24 02:54] VITALS: BP 129/84; PULSE 80; RESP 16; TEMP 36.1; O2SAT 97
[2025-02-24 05:57] VITALS: BMI 28.2
[2025-02-24 07:01] VITALS: BP 123/74; PULSE 80; RESP 17; TEMP 35.5; O2SAT 98
[2025-02-24 11:14] VITALS: BP 129/77; PULSE 88; RESP 16; TEMP 36.4; O2SAT 97
[2025-02-24] MEDS: Furosemide 20 MG/2 ML VIAL IVPUSH ×2 (11:24→19:04)
[2025-02-24] MEDS: 0.9 % Sodium Chloride Flush 3 ML SYRINGE IVFLUSH ×2 (11:27→19:03)
--- NOTE | 2025-02-24 15:10 | PM.PNCARD ---
Subjective Subjective Date of Service: 02/24/25 Interval history: seen and examined patient. She is somewhat better compared to the time of admission. Review of Systems Review of Systems Denies chest pain Denies shortness of breath Denies nausea vomiting diarrhea Denies fever chills Yes all other systems are reviewed and are negative Constitutional: Reports as per HPI and Reports no additional constitutional complaints Eyes: Reports as per HPI and Denies no additional eye complaints Denies system reviewed and no additional complaints, except as documented and Reports as per HPI Cardiovascular: Reports as per HPI, Reports no additional cardiovascular complaints, Denies acrocyanosis, Denies cool extremities, Denies chest pain, Denies leg edema, Denies lightheadedness, Denies palpitations and Reports dyspnea Respiratory: Reports as per HPI, Denies no additional respiratory complaints and Reports dyspnea Gastrointestinal: Reports as per HPI and Denies no additional gastrointestinal complaints Genitourinary: Reports as per HPI Musculoskeletal: Reports no additional musculoskeletal complaints and Reports as per HPI Skin/Breast: Reports system reviewed and no additional complaints, except as docu Reports system reviewed and no additional complaints, except as documented and Reports as per HPI Psychiatric: Reports no additional psychiatric complaints and Reports as per HPI Endocrine: Reports no additional endocrine complaints, Reports as per HPI and Denies palpitations Hematologic/Lymphatic: Reports no additional hematologic/lymphatic complaints and Reports as per HPI Allergic/Immunologic: Reports no additional allergic/immunologic complaints and Reports as per HPI Physical Exam Vital Signs: Last Vital Signs Temp 97.6 F 02/24/25 11:14 Pulse 88 02/24/25 11:14 Resp 16 02/24/25 11:14 BP 129/77 02/24/25 11:14 Pulse Ox 97 02/24/25 11:14 O2 Del Method Room Air 02/24/25 11:14 BMI result Body Mass Index 28.2 Const General: comfortable and no acute distress Orientation/consciousness: patient oriented x3 HEENT Other: Unremarkable Head: Yes normal to inspection Neck Neck: Yes normal visual inspection Chest Chest palpation & inspection: normal inspection of the chest Resp Auscultation: diminished lung sounds Cardio Palpation: normal PMI Heart sounds: S1 normal heart sound present, S2 normal heart sound present, no gallops, no murmurs and no rubs GI Palpation (GI): Soft to palpation Back/Spine/Pelvis Other: unremarkable Skin General skin exam: no rashes or lesions noted Neuro General: patient oriented x3 Extrem General: Yes normal to inspection Psych Mental Status: mental status grossly normal Objective Labs and Meds 02/23/25 06:19 02/23/25 06:19 Imaging Radiologist's impression: Impressions Chest Ultrasound 02/23/25 09:10 IMPRESSION: Left thoracentesis was canceled due to tiny amount of fluid and high risk of pneumothorax. Electronically signed by: Jack Farah MD 02/23/2025 03:57 PM EDT Progress Note: A&P Assessment and plan (1) Acute diastolic (congestive) heart failure: Status: Acute (2) HTN (hypertension): Status: Acute (3) NSVT (nonsustained ventricular tachycardia): Status: Acute Plan Labs reviewed. Cardiac BNP 626. High sensitivity Troponin levels are 88, 90, 104. Chest CTA reports small left pleural effusion, trace right pleural effusion and possibly mild interstitial edema. Flow of contrast into hepatic system. Small pericardial effusion. Mild cardiomegaly. In the echocardiogram, LVEF is 60-65%. Moderate LVH. Severe diastolic dysfunction. No significant valvular findings. Mild pulmonary hypertension. Small pericardial effusion. Overall, probable diastolic heart failure contributing to her symptoms. Troponins are mostly related to demand. With regard to medications, she has been on IV Lasix. She is-2.2 L. We can probably switch her to oral diuretics tomorrow. Consider adding Jardiance. She is on losartan for blood pressure. On telemetry, 14 beat NSVT. Correct electrolytes. Follow up in clinic. Discussed with Dr. Bran. Time Spent With Patient Time: Total time managing care of this patient today ____ minutes. Progress Note: Quality Stroke Does the patient have a stroke diagnosis?: No Procedures Date of Service Date of Service: 02/24/25
[2025-02-24 15:16] VITALS: BP 107/70; PULSE 84; RESP 18; TEMP 37.1; O2SAT 97
--- NOTE | 2025-02-24 15:37 | MHC.CM.PN ---
EMR reviewed and per MD rounds, pt is not medically cleared for discharge due to management of bilateral pleural effusions/CHF, cardiology consulted.
--- NOTE | 2025-02-24 15:38 | P.PNIM_ITS ---
Subjective Subjective Date of Service: 02/24/25 Interval History: No acute issues overnight. Breathing improved Review of Systems Denies chest pain Denies shortness of breath Denies nausea vomiting diarrhea Denies fever chills Physical Exam 2 Vital Signs: Vital Signs: Last Vital Signs Temp 98.7 F 02/24/25 15:16 Pulse 84 02/24/25 15:16 Resp 18 02/24/25 15:16 BP 107/70 02/24/25 15:16 Pulse Ox 97 02/24/25 15:16 O2 Del Method Room Air 02/24/25 15:16 BMI result Body Mass Index 28.2 Const: Other: Awake alert no acute distress Resp: Other: Faint crackles in bases Cardio: Other: No S4; positive S1-S2; no S3 murmurs rubs or gallops GI: Other: Soft nontender nondistended normoactive bowel sounds Extrem: Other: No edema bilaterally Objective Data Active Medications Acetaminophen (Acetaminophen 325 Mg Tablet) 975 mg PO Q6H PRN PRN Reason: Pain, Mild 1-3,fever,headache Last Admin: 02/23/25 20:17 Dose: 975 mg Documented By: GAYLE Aspirin (Aspirin 81 Mg Tab.Chew) 81 mg PO DAILY [facility] Last Admin: 02/24/25 11:17 Dose: 81 mg Documented By: JUAN Atorvastatin Calcium (Atorvastatin Calcium 80 Mg Tablet) 80 mg PO DAILY [facility] Last Admin: 02/24/25 11:16 Dose: 80 mg Documented By: JUAN Calcium Carbonate (Calcium Carbonate 750 Mg Tab.Chew) 750 mg PO Q4H PRN PRN Reason: Heartburn Enoxaparin Sodium (Enoxaparin Sodium 40 Mg/0.4 Ml Syringe) 40 mg SUBCUT Q24H [facility] Last Admin: 02/24/25 11:23 Dose: 40 mg Documented By: JUAN Furosemide (Furosemide 20 Mg/2 Ml Vial) 20 mg IVPUSH BID@0900,1800 [facility]; Protocol Last Admin: 02/24/25 11:24 Dose: 20 mg Documented By: JUAN Losartan Potassium (Losartan Potassium 50 Mg Tablet) 50 mg PO DAILY [facility]; Protocol Last Admin: 02/24/25 11:19 Dose: 50 mg Documented By: JUAN Magnesium Hydroxide (Milk Of Magnesia 30 Ml Oral.Susp) 30 ml PO DAILY PRN PRN Reason: Constipation Melatonin (Melatonin 3 Mg Tablet) 6 mg PO BEDTIME PRN PRN Reason: Insomnia Montelukast Sodium (Montelukast Sodium 10 Mg Tablet) 10 mg PO DAILY [facility] Last Admin: 02/24/25 11:18 Dose: 10 mg Documented By: JUAN Ondansetron HCl (Ondansetron Hcl 4 Mg/2 Ml Vial) 4 mg IVPUSH Q8H PRN PRN Reason: Nausea and Vomiting Last Admin: 02/24/25 11:21 Dose: 4 mg Documented By: JUAN Sodium Chloride (0.9 % Sodium Chloride Flush 3 Ml Syringe) 3 ml IVFLUSH QSHIFT [facility] Last Admin: 02/24/25 11:27 Dose: 3 ml Documented By: JUAN Labs 02/23/25 06:19 02/23/25 06:19 Assessment and Plan (1) Congestive heart failure: Status: Acute (2) HTN (hypertension): Status: Acute Plan Janneth Frye is a 69 y/o woman with a PMHx significant for invasive ductal carcinoma of the left breast on letrozole s/p lumpectomy with needle localization and left axillary sentinel node biopsy in 2020; on remission, completed adjuvant radiation; adjuvant chemotherapy was deferred presents with: 1. Diastolic CHF -continues in sinus rhythm on monitor -continue IV diuresis times 24 hours -appreciate cardiology input 2.HTN -acceptable control on current therapy -adjust as indicated 3. Asthma -stable and well compensated Code status: Full DVT prophylaxis: Lovenox Requires ongoing hospitalization to complete workup for acute CHF and Cardiology consultation Quality Stroke Does the patient have a stroke diagnosis?: No VTE Prior VTE?: No VTE Risk Level:: Medical - moderate - high VTE Device Contraindication: Treatment Not Indicated VTE Drug Contraindication: N/A - Med Ordered
[2025-02-24 19:00] VITALS: BP 116/64; PULSE 83; RESP 19; TEMP 36.2; O2SAT 96
[2025-02-24 23:05] VITALS: BP 115/76; PULSE 83; RESP 18; TEMP 36.3; O2SAT 95
[2025-02-25 03:22] VITALS: BP 126/79; PULSE 79; RESP 18; TEMP 36.4; O2SAT 96
[2025-02-25 04:37] VITALS: BMI 28.4
[2025-02-25 07:00] VITALS: BP 112/65; PULSE 86; RESP 18; TEMP 36.3; O2SAT 93
[2025-02-25 07:04] LABS: MANUAL DIFF FLAG NO
[2025-02-25 07:17] LABS: Hematocrit 44.8 % (37.0-47.0); Hemoglobin 14.7 g/dl (12.0-16.0); Imm Gran Abs Auto 0.04 X10*3/uL (0.00-0.03); Imm Gran Pct Auto 0.6 % (0.0-0.4); Lymphocytes Absolute Auto 1.6 X10*3/uL (1.2-4.9); Mean Corpuscular HGB Conc 32.8 g/dl (31.0-35.0); Mean Corpuscular Hemoglobin 32.2 pg (27.0-33.0); Mean Corpuscular Volume 98.2 fL (80.0-98.0); NRBC Abs Auto 0.000 X10*3/uL (0.0-0.012); NRBC Pct Auto 0.0 /100WBC (0.0-0.2); Platelet Count 155 X10*3/uL (160-400); Red Blood Count 4.56 X10*6/uL (4.20-5.50); White Blood Count 6.3 X10*3/uL (4.8-10.8)
[2025-02-25 07:54] LABS: Alanine Aminotransferase 47 U/L (0-31); Albumin Level 3.9 g/dL (3.5-5.0); Alkaline Phosphatase 69 U/L (39-117); Anion Gap 15 (12-20); Aspartate Amino Transferase 40 U/L (5-31); Blood Urea Nitrogen 16 mg/dL (9-16); Calcium 8.9 mg/dL (8.4-10.2); Carbon Dioxide 27 mmol/L (22-29); Chloride 102 mmol/L (96-108); Creatinine Clr Calc Pharmacy 56.0; Estimated Glomerular Filt Rate 59; Potassium 3.5 mmol/L (3.3-5.1); Sodium 140 mmol/L (135-145); Total Protein 6.2 g/dL (6.5-8.0)
[2025-02-25] MEDS: 0.9 % Sodium Chloride Flush 3 ML SYRINGE IVFLUSH (07:58)
[2025-02-25] MEDS: Furosemide 20 MG/2 ML VIAL IVPUSH (07:59)
--- NOTE | 2025-02-25 10:09 | P.DS_ITS ---
DS: Providers Provider Date of Service: 02/25/25 Date of admission: 02/22/25 19:26 Date of discharge: 02/25/25 Primary care physician: Ashley Villasenor MD Consults: 02/22/25 20:01 Consult to Cardiology Routine Consulting Provider: [facility] Reason for consultation: bilat pleural effusion,elevated troponin Has provider been notified: No DS: Diagnosis Discharge Diagnosis (1) Acute diastolic (congestive) heart failure: Status: Acute (2) HTN (hypertension): Status: Acute (3) NSVT (nonsustained ventricular tachycardia): Status: Acute DS: Summary Hospital Course Hospital Course: admission hpi Chief Complaint: swollen neck veins Janneth Frye is a 69 years old woman with a past medical history significant for left breast CA status post lumpectomy (2020, completed adjuvant chemotherapy; adjuvant chemotherapy was deferred); hyperlipidemia and essential hypertension presents to the emergency department complaining of swollen neck veins. She noted this yesterday. She also reported some swelling to her left face, left arm and left leg. She did not report significant chest pain. She does have dizziness and some shortness on breath upon walking. She has occasional cough which she attributes to her asthma. Denied wheezing, fever, chills, nausea, vomiting, abdominal pain, diarrhea or pain with urination. She has no history of tobacco smoking, alcohol abuse or illicit drug use. Patient denied history of myocardial infarction, arrhythmias or congestive heart failure. She does not have history of diabetes mellitus, GERD or kidney disease. In the ED, her vital signs are remarkable for hypertension, last blood pressure is 165/100. Other vital signs are normal. Blood workup showed no leukocytosis. Hemoglobin is 12.7 and platelets 161. INR is 1.1. There is mild hypernatremia 147 and no other electrolyte imbalances. Renal function is normal. Transaminases are mildly elevated, bilirubin and alk-phos are normal. Troponin is elevated at 88.4 then 90.5. Chest CTA showed no evidence of PE, however, it showed bilateral pleural effusion, left larger than right and a mild degree of interstitial edema and small pericardial effusion. Left lower extremity venous ultrasound is negative for DVT. ECG showed sinus rhythm with marked sinus arrhythmia, low voltages and no obvious acute ischemic changes. ED tx: Furosemide 40 mg IV, nitroglycerin 0.5 in transdermal patch. Hospital course: Janneth Frye is a 69 y/o woman with a PMHx significant for invasive ductal carcinoma of the left breast on letrozole s/p lumpectomy with needle localization and left axillary sentinel node biopsy in 2020; on remission, completed adjuvant radiation; adjuvant chemotherapy was deferred presents with: 1. Acute on chronic Diastolic CHF diuressed with IV Lasix, seen by cardiology recommend adding Jardiance and outpatient follow up. Overall feels much better 2.HTN -acceptable control on current therapy -adjust as indicated 3. Asthma -stable and well compensated Code status: Full DVT prophylaxis: Lovenox Time Attestation Discharge Coordination Time (in mins): 45 Quality: Safe Use of Opioids Does Pt have an Active Cancer Diagnosis on the Problem List?: No Quality: Stroke Does the patient have a stroke diagnosis?: No Physical Exam Vital Signs: Vital Signs: Last Vital Signs Temp 97.3 F 02/25/25 07:00 Pulse 86 02/25/25 07:00 Resp 18 02/25/25 07:00 BP 112/65 02/25/25 07:00 Pulse Ox 93 02/25/25 07:00 O2 Del Method Room Air 02/25/25 07:00 BMI result Body Mass Index 28.4 DS: Data Data Completed and Pending Pending studies at discharge: Pending at discharge 02/23/25 03:12 Cytology [PTH] Routine Labs on day of discharge: Laboratory Results - last 24 hr 02/25/25 06:26 WBC 6.3 RBC 4.56 D Hgb 14.7 D Hct 44.8 D MCV 98.2 H MCH 32.2 MCHC 32.8 RDW 13.5 Plt Count 155 L MPV 10.5 Immature Gran % (Auto) 0.6 H Neut % (Auto) 57.6 Lymph % (Auto) 25.6 [place] % (Auto) 6.9 Eos % (Auto) 8.5 H Baso % (Auto) 0.8 Lymph # (Auto) 1.6 [place] # (Auto) 0.4 Eos # (Auto) 0.5 H Baso # (Auto) 0.1 Abs Immat Gran (auto) 0.04 H Absolute Neuts (auto) 3.7 Absolute Nucleated RBC 0.000 Nucleated RBC % (auto) 0.0 Sodium 140 Potassium 3.5 Chloride 102 Carbon Dioxide 27 Anion Gap 15 BUN 16 Creatinine 0.94 Estim Creat Clear Calc 56.0 Estimated GFR 59 Fasting Glucose 206 H Calcium 8.9 Total Bilirubin 0.6 AST 40 H ALT 47 H Alkaline Phosphatase 69 Total Protein 6.2 L Albumin 3.9 Discharge Plan Discharge Anticipated Discharge Date/Time: 02/25/25 10:34 Patient Disposition: Home Health Service Discharge Diagnosis: Acute on chronic CHF Referrals: Ashley Villasenor MD [Primary Care Provider, Internal Medicine] - 1 Week Discharge Medications: New Jardiance 10 mg tablet 10 mg PO DAILY Qty: 90 0RF Continued cyanocobalamin (vitamin B-12) [Vitamin B-12] 1,000 mcg Tablet 1,000 mcg PO DAILY Qty: 90 3RF acetaminophen 500 mg tablet 500 mg PO TID PRN (Reason: fever) losartan-hydrochlorothiazide 50-12.5 mg tablet 1 tab PO DAILY cholecalciferol (vitamin D3) [Vitamin D3] 125 mcg (5,000 unit) Tablet 125 mcg PO DAILY Qty: 30 3RF montelukast 10 mg tablet 10 mg PO DAILY rosuvastatin 40 mg tablet 40 mg PO DAILY albuterol sulfate 90 mcg/actuation HFA aerosol inhaler 90 mcg inhalation Q6H PRN (Reason: Shortness Of Breath Or Wheezing) albuterol sulfate 2.5 mg /3 mL (0.083 %) solution for nebulization 2.5 mg inhalation Q4-6H PRN (Reason: Shortness Of Breath) fluticasone propion-salmeterol [Advair Diskus] 500-50 mcg/dose blister with device 1 ea PO BID Qty: 60 3RF Discharge Orders: Discharge Order (Routine); Ordered 02/25/25 Ordered By: Octavio Ibrahim Diet: Advance to usual diet Activity on Discharge: As tolerated Stand Alone Forms: Patient Portal Discharge page Print Language: Serbian Care Plan Goals: recovery from heart failure and prevent hospitailization Health Concerns: heart failure pleural effusion Plan of Treatment: take Lasix and Jardiance as recommended and follow up with your doctor in a week Assessment: see above
--- NOTE | 2025-02-25 10:55 | MHC.CM.PN ---
Patient has been medically cleared for dc to home today, with services. [facility] referral [facility] to [facility], who has been made aware of today's dc. Last IMM was addressed on 02/23/2025.
[2025-02-25 11:21] VITALS: BP 99/67; PULSE 84; RESP 18; TEMP 36.2; O2SAT 93
--- NOTE | 2025-02-25 13:00 | W.MHC.F2F ---
Service Date Service Date: 02/25/25 Encounter Date of encounter: 02/25/25 Encounter: shortness of breath due to heart failure Reasons for Services Signs and symptoms assessed: 35 Reason for long-term: medication management and teach disease management Homebound: Leaving the home is medically contraindicated at this time without the asist of a device and/or another person due th the listed conditions above and below. Reason homebound: shortness of breath with minimal effort Homebound supporting statement: homebound due to shortness of breath heart failure and needs the assistance of another person Certification: Based on the above findings, I certify that this patient is confined to the home and needs intermittent long-term care, physical therapy and/or speech therapy, or continues to need occupational therapy. The patient is under my care, and I have initiated the establishment of the plan of care. The patient will be followed by a physician who will periodically review the plan of care. Time Spent With Patient Time: Total time managing care of this patient today ____ minutes.
== END 2025-02-25 02:20 | disposition home health service (06) | DRG 291 ==
LOC: HO.ED 19:18 → HO.EDOVER 19:29 → HO.IMC 23:35
PROVIDERS: Hospitalist; Physician Assistant; Radiology Diagnostic Radiology; Admitting Provider Internal Medicine; Emergency Provider Emergency Medicine; PCP Internal Medicine; Visit Provider Internal Medicine
DX: I11.0 Hypertensive heart disease with heart failure (principal); I50.31 Acute diastolic (congestive) heart failure; I47.20 Ventricular tachycardia, unspecified; J45.50 Severe persistent asthma, uncomplicated; E78.5 Hyperlipidemia, unspecified; C50.912 Malignant neoplasm of unspecified site of left female breast; Z23 Encounter for immunization; Z20.822 Contact with and (suspected) exposure to COVID-19; Z79.51 Long term (current) use of inhaled steroids; Z79.811 Long term (current) use of aromatase inhibitors; Z79.899 Other long term (current) drug therapy
CPT/HCPCS: 36415; 71046; 71275; 76604; 80048; 80053; 80061; 81003; 83036; 83735; 83880; 84443; 84484; 85025; 85379; 85610; 85730; 87502; 87635; 90656; 93005; 93306; 93971; 99285; J1650; J1938; J2405; Q9957; Q9967

== ENCOUNTER → 2025-02-22 15:10 | Outpatient (BNV) | payer MEDICARE, MEDICAID, SELFPAY | PROVIDERS: Admitting Provider Internal Medicine; Emergency Provider Emergency Medicine; PCP Internal Medicine; Visit Provider Internal Medicine | DX: I49.9 Cardiac arrhythmia, unspecified (principal) | CPT/HCPCS: 93010 ==

== ENCOUNTER → 2025-02-22 16:39 | Outpatient (BNV) | payer MEDICARE, MEDICAID, SELFPAY | PROVIDERS: Emergency Provider Emergency Medicine; PCP Internal Medicine; Visit Provider Radiology Diagnostic Radiology | DX: J90 Pleural effusion, not elsewhere classified (principal); I31.39 Other pericardial effusion (noninflammatory); R22.42 Localized swelling, mass and lump, left lower limb | CPT/HCPCS: 71275; 93971 ==

== ENCOUNTER 2025-02-22 19:26 | Outpatient (BNV) | payer MEDICARE, MEDICAID, SELFPAY | END 2025-02-25 10:45 | PROVIDERS: Admitting Provider Internal Medicine; Emergency Provider Emergency Medicine; PCP Internal Medicine; Visit Provider Radiology Diagnostic Radiology | DX: J90 Pleural effusion, not elsewhere classified (principal) | CPT/HCPCS: 71046 ==

== ENCOUNTER 2025-02-22 19:26 | Outpatient (BNV) | payer MEDICARE, MEDICAID, SELFPAY | END 2025-02-23 07:00 | PROVIDERS: Admitting Provider Internal Medicine; Emergency Provider Emergency Medicine; PCP Internal Medicine; Visit Provider Internal Medicine | DX: I50.30 Unspecified diastolic (congestive) heart failure (principal); I31.39 Other pericardial effusion (noninflammatory) | CPT/HCPCS: 93306 ==

== ENCOUNTER 2025-02-22 19:26 | Outpatient (BNV) | payer MEDICARE, MEDICAID, SELFPAY | END 2025-02-23 09:10 | PROVIDERS: Admitting Provider Internal Medicine; Emergency Provider Emergency Medicine; PCP Internal Medicine; Visit Provider Radiology Diagnostic Radiology | DX: J90 Pleural effusion, not elsewhere classified (principal) | CPT/HCPCS: 76604 ==

== ENCOUNTER → 2025-02-22 19:26 | Outpatient (BNV) | payer MEDICARE, MEDICAID, SELFPAY | PROVIDERS: Admitting Provider Internal Medicine; Emergency Provider Emergency Medicine; PCP Internal Medicine; Visit Provider Internal Medicine | DX: I50.9 Heart failure, unspecified (principal); I31.39 Other pericardial effusion (noninflammatory); I10 Essential (primary) hypertension | CPT/HCPCS: 99223 ==

== ENCOUNTER → 2025-02-22 19:26 | Outpatient (BNV) | payer MEDICARE, MEDICAID, SELFPAY | PROVIDERS: Admitting Provider Internal Medicine; Emergency Provider Emergency Medicine; PCP Internal Medicine; Visit Provider Internal Medicine | DX: I50.31 Acute diastolic (congestive) heart failure (principal); I10 Essential (primary) hypertension; I47.29 Other ventricular tachycardia | CPT/HCPCS: 99223; 99232; 99239; G0180 ==

== ENCOUNTER 2025-03-21 09:07 | Outpatient (REF) | payer MEDICARE, MEDICAID, SELFPAY ==
--- OUTSIDE RECORDS SUMMARY | 2025-03-21 09:53 | XMS_ITS | Encounter Summary ---
Author Organization [facility] Address [address] [place] [phone] Phone Care Team Providers Care Manager Paper Name Role Phone Ashley Villasenor MD Primary Care Provider Encounter Details Date Type Department Care Team (Late st Contact Info) Description 08/24/2020 Ancillary Orders [facility],Outside Imaging [address] [place], [place] [phone] System, Provider Not In, [facility] [address] [id number] Social History Tobacco Use Types Packs/Day Years [...] on filedocumented in this encounter Care Teams Manager Paper Relationship Specialty Start Date End Date Ashley Villasenor MD [address] [place] [address] [place] [id number] PCP - General 08/31/20 documented as of this encounter Additional Source Comments The information contained in this document represents components of the legal health record. It is not the complete legal health record.[facility]
--- OUTSIDE RECORDS SUMMARY | 2025-03-21 09:53 | XMS_ITS | Encounter Summary ---
Author Organization [facility] Address [address] [place] [phone] Phone Care Team Providers Care Supervisor [facility] Name Role Phone Ashley Villasenor MD Primary Care Provider Encounter Details Date Type Department Care Team (Late st Contact Info) Description 08/24/2020 Ancillary Orders [facility],Outside Imaging [address] [place] [address] System, Provider Not In, [facility] [address] [address] Social History Tobacco Use Types Packs/Day Years [...] on filedocumented in this encounter Care Teams Supervisor [facility] Relationship Specialty Start Date End Date Ashley Villasenor MD [address] [place] [address] [place] [phone] PCP - General 08/31/20 documented as of this encounter Additional Source Comments The information contained in this document represents components of the legal health record. It is not the complete legal health record.[facility]
--- OUTSIDE RECORDS SUMMARY | 2025-03-21 09:53 | XMS_ITS | Encounter Summary ---
Author Organization [facility] Address [address] [facility] [address] [place] [address] Phone Care Team Providers Care Superintendent Plant Name Role Phone Ashley Villasenor MD Primary Care Provider Encounter Details Date Type Department Care Team (Late st Contact Info) Description 08/24/2020 Ancillary Orders [facility],Outside Imaging [address] [place] [address] System, Provider Not In, PhD Partners [address] [address] Social History Tobacco Use Types Packs/Day Years [...] on filedocumented in this encounter Care Teams Superintendent Plant Relationship Specialty Start Date End Date Ashley Villasenor MD [address] [place] [address] [place] [phone] PCP - General 08/31/20 documented as of this encounter Additional Source Comments The information contained in this document represents components of the legal health record. It is not the complete legal health record.[facility]
--- OUTSIDE RECORDS SUMMARY | 2025-03-21 09:53 | XMS_ITS | Encounter Summary ---
Author Organization [facility] Address [address] [facility] [address] [place] [phone] Phone Care Team Providers Care Regional Intermodal Truck Driver Name Role Phone Ashley Villasenor MD Primary Care Provider Encounter Details Date Type Department Care Team (Late st Contact Info) Description 08/24/2020 Ancillary Orders [facility],Outside Imaging [address] [place] [address] System, Provider Not In, PhD [facility] [address] [address] Social History Tobacco Use Types Packs/Day Years [...] on filedocumented in this encounter Care Teams Regional Intermodal Truck Driver Relationship Specialty Start Date End Date Ashley Villasenor MD [address] [place] [address] [place] [phone] PCP - General 08/31/20 documented as of this encounter Additional Source Comments The information contained in this document represents components of the legal health record. It is not the complete legal health record.[facility]
--- OUTSIDE RECORDS SUMMARY | 2025-03-21 09:53 | XMS_ITS | Encounter Summary ---
Author Organization [facility] Address [address] [facility] [address] [place] [address] Phone Care Team Providers Care Cook Specialty Name Role Phone Ashley Villasenor MD Primary Care Provider Encounter Details Date Type Department Care Team (Late st Contact Info) Description 08/24/2020 Ancillary Orders [facility],Outside Imaging 30 [place] [address] System, Provider Not In, PhD [employer] [address] [address] Social History Tobacco Use Types Packs/Day Years [...] on filedocumented in this encounter Care Teams Cook Specialty Relationship Specialty Start Date End Date Ashley Villasenor MD [address] [place] [address] [place] [phone] PCP - General 08/31/20 documented as of this encounter Additional Source Comments The information contained in this document represents components of the legal health record. It is not the complete legal health record.[facility]
--- OUTSIDE RECORDS SUMMARY | 2025-03-21 09:53 | XMS_ITS | Encounter Summary ---
Author Organization [facility] Address [address] [facility] [address] [place] [address] Phone Care Team Providers Care Principle Software Engineer Name Role Phone Ashley Villasenor MD Primary Care Provider Encounter Details Date Type Department Care Team (Late st Contact Info) Description 08/24/2020 Ancillary Orders [facility],Outside Imaging 30 [place] [address] System, Provider Not In, PhD [employer] [address] [address] Social History Tobacco Use Types Packs/Day Years [...] on filedocumented in this encounter Care Teams Principle Software Engineer Relationship Specialty Start Date End Date Ashley Villasenor MD [address] [place] [address] [place] [phone] PCP - General 08/31/20 documented as of this encounter Additional Source Comments The information contained in this document represents components of the legal health record. It is not the complete legal health record.[facility]
--- OUTSIDE RECORDS SUMMARY | 2025-03-21 09:53 | XMS_ITS | Clinical Summary ---
Author Organization [facility] Address [address] [facility] [address] [place] [address] Phone Care Team Providers Care Sales Representative Consultant Name Role Phone Ashley Villasenor MD Primary [...] VACCINE (#1) 2025 COVID-19 VACCINE (1 - 2024-2 6 season) 2025 RSV VACCINE (1 - 1-dose [...] Recently Relevant to Health Maintenance Insurance [address] [place] [id number] [employer] [address] [place] [id number] [place] [address] [place] [address] [place] [address] [place] [id number] [place] [address] [place] [address] [place] [address] [place] [address] [place] Care Teams Sales Representative Consultant Relationship Specialty Start Date End Date Ashley Villasenor MD [address] [place] [address] [place] [address] PCP - General 08/31/20 Additional Source Comments The information contained in this document represents components of the legal health record. It is not the complete legal health record.[facility]
--- OUTSIDE RECORDS SUMMARY | 2025-03-21 09:53 | XMS_ITS | Encounter Summary ---
Author Organization [facility] Address [address] [facility] [address] [place] [address] Phone Care Team Providers Care Bowl Turner Name Role Phone Ashley Villasenor MD Primary Care Provider Encounter Details Date Type Department Care Team (Late st Contact Info) Description 08/24/2020 Ancillary Orders [facility],Outside Imaging [address] [place] [address] System, Provider Not In, PhD Partners [address] [address] Social History Tobacco Use Types Packs/Day Years [...] on filedocumented in this encounter Care Teams Bowl Turner Relationship Specialty Start Date End Date Ashley Villasenor MD [address] [place] [address] [place] [phone] PCP - General 08/31/20 documented as of this encounter Additional Source Comments The information contained in this document represents components of the legal health record. It is not the complete legal health record.[facility]
[2025-03-21 10:35] LABS: Alanine Aminotransferase 56 U/L (0-31); Albumin Level 4.8 g/dL (3.5-5.0); Alkaline Phosphatase 72 U/L (39-117); Anion Gap 14 (12-20); Aspartate Amino Transferase 59 U/L (5-31); Blood Urea Nitrogen 40 mg/dL (9-16); Calcium 9.4 mg/dL (8.4-10.2); Carbon Dioxide 31 mmol/L (22-29); Chloride 99 mmol/L (96-108); Estimated Glomerular Filt Rate 41; Potassium 3.2 mmol/L (3.3-5.1); Sodium 141 mmol/L (135-145); Total Protein 7.2 g/dL (6.5-8.0)
== END 2025-03-21 09:08 | disposition home or self-care (01) ==
LOC: HO.10HDL 09:07
PROVIDERS: Visit Provider Internal Medicine
DX: I10 Essential (primary) hypertension (principal); J91.8 Pleural effusion in other conditions classified elsewhere; Z85.3 Personal history of malignant neoplasm of breast; J45.50 Severe persistent asthma, uncomplicated; Z91.09 Other allergy status, other than to drugs and biological substances
CPT/HCPCS: 36415; 80053; 99212

== ENCOUNTER 2025-03-21 10:05 | Outpatient (AMB) | payer MEDICARE, MEDICAID, SELFPAY ==
[2025-03-21 10:08] VITALS: BP 118/62; PULSE 96; O2SAT 98; BMI 25.6
--- NOTE | 2025-03-21 10:08 | MHC.OFFVIS ---
Vital Signs 03/21/25 10:08 Height 5 ft 4 in Weight 149 lb BMI 25.6 BP 118/62 Blood Pressure Location Rt brachial Position Sitting Pulse 96 Pulse Source Pulse Oximeter Pulse Oximetry (%) 98 Oxygen Delivery Method Room Air Intake Visit Reasons: HDF ~ Post hospital discharge FU Marine Fireman Required: Yes Marine Fireman Name: Bernie Maguire Junie Allergies morphine (MORPHINE) Allergy (Unknown, Verified 03/21/25 10:11) STATES TABLET FORM CAUSES SHAKING HPI HPI HDF ~ Post hospital discharge FU: Details: 69-year-old lady, lifetime nonsmoker, followed for severe persistent allergic asthma? and environmental allergies.? Patient has been using Advair, albuterol MDI, and Singulair with good control of her symptoms. She recently has been hospitalized for exacerbation of underlying severe diastolic congestive heart failure in treated with additional diuresis with significant improvement. She denies recent exacerbations. [facility] Medical History (Updated 03/05/25 @ 00:01 by Isabella Jones) Pericardial effusion Breast cancer History of high cholesterol Asthma HTN (hypertension) Arthritis Abnormal mammogram of left breast Surgical History History of lumpectomy of left breast Family History Mother Arthritis Alzheimer disease Social History Household Members: Family Housing: House Are you a primary health care marketing specialist to a significant other at home: No Do you presently have visiting nurse or other home services: No Alcohol intake: never Patient Tobacco Use Status: Never used Tobacco e-Cigarette/Vaping Use: Never Used service: No Current occupational status: unemployed Current occupation: rt hand Female Reproductive History Menstrual Age of Menarche: 12 Review of Systems Const Denies daytime sleepiness, Denies excessive sweating, Denies fatigue, Denies fever(s), Denies lethargy, Denies malaise, Denies night sweats, Denies snoring and Denies weight loss Eyes Denies blurry vision and Denies itchy eyes ENT Denies nasal congestion, Denies post nasal drip, Denies sinus pain, Denies sinus pressure and Denies other ( Thrush) Card Denies chest pain, Denies pedal edema, Denies dyspnea, Denies orthopnea and Denies paroxysmal nocturnal dyspnea Resp Denies cough, Denies hemoptysis, Denies excessive phlegm production, Denies dyspnea, Denies snoring and Denies wheezing GI Denies abdominal pain and Denies heartburn Musc Denies myalgias, Denies arthralgias and Denies joint swelling Skin/Breast Denies rash Neuro Denies memory loss and Denies seizure-like activity Psych Denies abnormal sleep pattern, Denies anxiety and Denies memory loss Endo Denies excessive sweating, Denies fatigue and Denies heat intolerance Alan/Lymph Denies easy bruising Aller/Immun Denies itchy eyes, Denies seasonal rhinorrhea and Denies wheezing Physical Exam Vital Signs: Last Vital Signs Pulse 96 03/21/25 10:08 BP 118/62 03/21/25 10:08 Pulse Ox 98 03/21/25 10:08 Oxygen Delivery Method Room Air 03/21/25 10:08 BMI result Body Mass Index 25.6 Const General: no acute distress and alert Nutritional Appearance: not obese Orientation/consciousness: Other orientation findings ( oriented) HEENT Head: Yes atraumatic Eyes General: appearance normal, both eyes and all related structures Sclerae: sclerae normal EOM: EOMs intact bilaterally Neck Neck: Yes supple Lymphatic: no lymphadenopathy noted Resp Effort & Inspection: normal respiratory effort and no use of accessory muscles Auscultation: clear to auscultation bilaterally Cardio Rate: regular rate Rhythm: regular rhythm Heart sounds: no gallops, no murmurs and no rubs Skin General skin exam: other ( warm) Extrem General: No clubbing, No cyanosis and No edema Assessment & Plan Assessment & Plan (1) Severe persistent allergic asthma: Code(s): J45.50 - Severe persistent asthma, uncomplicated Category: Medical Plan: Well controlled on Advair and albuterol MDI. Continue current regimen. (2) Environmental allergies: Code(s): Z91.09 - Other allergy status, other than to drugs and biological substances Category: Medical Plan: Well controlled on Singulair. Continue current regimen. Coding Level of Care Code Est Pt Level 4 (86226) Diagnoses Severe persistent allergic asthma J45.50 Environmental allergies Z91.09
== END 2025-03-21 10:36 | disposition home or self-care (01) ==
LOC: HO.HPS 10:06
PROVIDERS: PCP Internal Medicine; Visit Provider Internal Medicine Pulmonary Disease
DX: J45.50 Severe persistent asthma, uncomplicated (principal); Z91.09 Other allergy status, other than to drugs and biological substances
CPT/HCPCS: 99214

== ENCOUNTER 2025-04-13 10:31 | Outpatient (AMB) | payer MEDICARE, MEDICAID, SELFPAY ==
--- NOTE | 2025-04-13 10:45 | MHC.OFFVIS ---
Vital Signs 04/13/25 11:22 Height 5 ft 4 in Weight 147 lb 11.355 oz BMI 25.4 BP 109/62 Blood Pressure Location Lt brachial Position Sitting Pulse 97 Intake Visit Reasons: 6 month breast exam Intake Note: Patient is seen in office for 6 month follow up, breast exam. Pt c/o: admits to left breast feels warm, sometimes the whole left side feels warm, she did start a new medications that is causing the dizziness, Dry Chain Worker Required: No Allergies morphine (MORPHINE) Allergy (Unknown, Verified 03/21/25 10:11) STATES TABLET FORM CAUSES SHAKING HPI HPI 6 month breast exam: Details: 69 year old female patient returning for breast cancer follow-up examination. She underwent an ultrasound-guided core biopsy on 07/26/2020 for a left breast density. Pathology revealed an invasive ductal carcinoma, grade 3, ER/LA positive, HER2 Ernestina negative. She subsequently underwent a left breast lumpectomy with needle localization, left axillary sentinel node biopsy on 08/09/2020. Pathology revealed invasive ductal carcinoma, grade 3, 1.6 cm with positive anterior margin, ductal carcinoma in-situ focal, with negative margins. Wider excision at the same primary procedure of the left anterior superior margin revealed benign breast tissue with fibrocystic change. No residual carcinoma was seen. Four lymph nodes were negative for metastatic disease (pT1c N0 (sn) (i-)). She was evaluated by Dr. Cobb; Oncotype DX recurrence score was 24 with the benefit of chemotherapy felt to be less than 1%. She underwent radiation therapy at [facility]. She tolerated this well and was subsequently started on letrozole 2.5 mg daily. Her last mammogram performed on 05/24/2024 revealed no mammographic evidence of malignancy (BI-RADS 2) and one year follow up mammogram was recommended. She denies any breast symptoms. She has a mammogram scheduled for 05/23/25. During this visit upon presentation, she complained of dizziness and palpitations. She took her losartan/HCTZ as well as spironolactone without eating this morning and was rushing around. Vitals stable. She was admitted in 03/02 for CHF exacerbation. She has not seen cardiology since her admission. In March, she was started on Spironolactone by her PCP. She reports since taking this she feels dizzy and unsettled in the morning since beginning this medication whether or not she takes it with food. She was given food and oral fluids in the clinic with improvement in her symptoms. She has not seen cardiology since her recent admission. [facility] Medical History (Updated 03/05/25 @ 00:01 by Isabella Jones) Pericardial effusion Breast cancer History of high cholesterol Asthma HTN (hypertension) Arthritis Abnormal mammogram of left breast Surgical History History of lumpectomy of left breast Family History Mother Arthritis Alzheimer disease Social History Household Members: Family Housing: House Are you a primary post acute care nurse to a significant other at home: No Do you presently have visiting nurse or other home services: No Alcohol intake: never Patient Tobacco Use Status: Never used Tobacco e-Cigarette/Vaping Use: Never Used service: No Current occupational status: unemployed Current occupation: rt hand Female Reproductive History Menstrual Age of Menarche: 12 Review of Systems Const Denies chills, Denies fatigue, Denies fever(s) and Denies weakness ENT Reports dizziness Card Denies chest pain, Reports rapid heart rate and Denies dyspnea Resp Denies cough and Denies dyspnea GI Denies abdominal pain, Denies nausea and Denies vomiting Musc Denies numbness Skin/Breast Denies rash and Denies jaundice Neuro Reports dizziness, Denies numbness and Denies weakness Endo Denies fatigue Physical Exam Vital Signs: Last Vital Signs Pulse 97 04/13/25 11:22 BP 109/62 04/13/25 11:22 BMI result Body Mass Index 25.4 Const General: comfortable, no acute distress and alert Orientation/consciousness: patient oriented x3 Chest Other: Left breast incision in the upper outer quadrant is clean, dry, and intact without redness. Breast tissue is soft with no palpable mass. No skin change, nipple discharge or palpable lymph nodes are appreciated. Right breast with no skin change, nipple discharge, palpable mass, or enlarged lymph nodes. nipple retraction noted. Resp Effort & Inspection: normal respiratory effort, able to speak in complete sentences and not tachypneic Cardio Rate: regular rate Skin General skin exam: no rashes or lesions noted Neuro General: patient oriented x3, gait normal and moves all extremities Assessment & Plan Assessment & Plan (1) Invasive ductal carcinoma of left breast, stage 1: Code(s): C50.912 - Malignant neoplasm of unspecified site of left female breast Category: Medical Plan 69 year old female patient returning for follow-up breast examination with a history of infiltrating ductal carcinoma of the left breast S/P left breast lumpectomy with sentinel node biopsy. She denies any ongoing breast symptoms. Her most recent mammogram of 05/24/2024 revealed postoperative changes but no mammographic evidence of malignancy (BI-RADS 2). Examination today revealed no suspicious findings in either breast. She is due for a screening mammogram and is scheduled next month and should return for follow-up examination in 6 months. She is welcome to call sooner for any new concerns. In regards to her dizziness, her symptoms resolved. Her vitals were stable. It may be due to the fact that she did not eat when she took her spironolactone however since she has been having these symptoms since the medication was started, she was told to hold taking this medication until she follows up with her PCP. She was instructed to call them to be seen as soon as possible. She was instructed to follow up with cardiology as well. Patient understands and agrees with plan. Coding Level of Care Code Est Pt Level 3 (67787) Diagnoses Invasive ductal carcinoma of left breast, stage 1 C50.912
[2025-04-13 11:22] VITALS: BP 109/62; PULSE 97; BMI 25.4
--- OUTSIDE RECORDS SUMMARY | 2025-04-13 12:34 | XMS_ITS | Encounter Summary ---
Author Organization [facility] Address [address] [facility] [address] [place] [address] Phone Care Team Providers Care Orthopedics Nurse Name Role Phone Ashley Villasenor MD Primary Care Provider Encounter Details Date Type Department Care Team (Late st Contact Info) Description 08/24/2020 Ancillary Orders [facility],Outside Imaging 30 [place], [place] [id number] System, Provider Not In, PhD Partners [address] [address] Social History Tobacco Use Types Packs/Day Years [...] on filedocumented in this encounter Care Teams Orthopedics Nurse Relationship Specialty Start Date End Date Ashley Villasenor MD [address] [place] [address] [place] [phone] PCP - General 08/31/20 documented as of this encounter Additional Source Comments The information contained in this document represents components of the legal health record. It is not the complete legal health record.[facility]
--- OUTSIDE RECORDS SUMMARY | 2025-04-13 12:34 | XMS_ITS | Encounter Summary ---
Author Organization [facility] Address [address] [facility] [address] [place] [address] Phone Care Team Providers Care Manager Pool Name Role Phone Ashley Villasenor MD Primary Care Provider Encounter Details Date Type Department Care Team (Late st Contact Info) Description 08/24/2020 Ancillary Orders [facility],Outside Imaging 30 [place] [address] System, Provider Not In, PhD Partners [address] [address] Social History Tobacco Use Types Packs/Day Years [...] filedocumented in this encounter Care Teams Manager Pool Relationship Specialty Start Date End Date Ashley Villasenor MD [address] [place] [address] [place] [phone] PCP - General 08/31/20 documented as of this encounter Additional Source Comments The information contained in this document represents components of the legal health record. It is not the complete legal health record.[facility]
--- OUTSIDE RECORDS SUMMARY | 2025-04-13 12:34 | XMS_ITS | Encounter Summary ---
Author Organization [facility] Address [address] [facility] [address] [place] [address] Phone Care Team Providers Care Maintenance Mechanic 2Nd Shift Name Role Phone Ashley Villasenor MD Primary Care Provider Encounter Details Date Type Department Care Team (Late st Contact Info) Description 08/24/2020 Ancillary Orders [facility],Outside Imaging 30 [place] [address] System, Provider Not In, PhD Partners [address] [address] Social History Tobacco Use Types Packs/Day Years [...] on filedocumented in this encounter Care Teams Maintenance Mechanic 2Nd Shift Relationship Specialty Start Date End Date Ashley Villasenor MD [address] [place] [address] [place] [phone] PCP - General 08/31/20 documented as of this encounter Additional Source Comments The information contained in this document represents components of the legal health record. It is not the complete legal health record.[facility]
--- OUTSIDE RECORDS SUMMARY | 2025-04-13 12:34 | XMS_ITS | Encounter Summary ---
Author Organization [facility] Address [address] [facility] [address] [place] [phone] Phone Care Team Providers Care Phlebotomist Supervisor/Instructor Name Role Phone Ashley Villasenor MD Primary Care Provider Encounter Details Date Type Department Care Team (Late st Contact Info) Description 08/24/2020 Ancillary Orders [facility],Outside Imaging [address] [place] [address] System, Provider Not In, PhD Partners [address] [address] Social History Tobacco Use Types Packs/Day Years [...] on filedocumented in this encounter Care Teams Phlebotomist Supervisor/Instructor Relationship Specialty Start Date End Date Ashley Villasenor MD [address] [place] [address] [place] [phone] PCP - General 08/31/20 documented as of this encounter Additional Source Comments The information contained in this document represents components of the legal health record. It is not the complete legal health record.[facility]
--- OUTSIDE RECORDS SUMMARY | 2025-04-13 12:34 | XMS_ITS | Encounter Summary ---
Author Organization [facility] Address [address] [facility] [address] [place] [address] Phone Care Team Providers Care Pole Incisor Operator Name Role Phone Ashley Villasenor MD Primary Care Provider Encounter Details Date Type Department Care Team (Late st Contact Info) Description 08/24/2020 Ancillary Orders [facility],Outside Imaging [address] [place] [address] System, Provider Not In, PhD Partners [address] [address] Social History Tobacco Use Types Packs/Day Years [...] on filedocumented in this encounter Care Teams Pole Incisor Operator Relationship Specialty Start Date End Date Ashley Villasenor MD [address] [place] [address] [place] [phone] PCP - General 08/31/20 documented as of this encounter Additional Source Comments The information contained in this document represents components of the legal health record. It is not the complete legal health record.[facility]
--- OUTSIDE RECORDS SUMMARY | 2025-04-13 12:34 | XMS_ITS | Clinical Summary ---
Author Organization [facility] Address [address] [facility] [address] [place] [address] Phone Care Team Providers Care Shine Worker Name Role Phone Ashley Villasenor MD Primary [...] Recently Relevant to Health Maintenance Insurance [address] [place] [id number] [facility] [employer] [address] [place] [id number] [place] [address] [place] [id number] [place] [address] [place] [id number] [place] [address] [place] [address] [place] [address] [place] [address] [place] Care Teams Shine Worker Relationship Specialty Start Date End Date Ashley Villasenor MD [address] [place] [address] [place] [address] PCP - General 08/31/20 Additional Source Comments The information contained in this document represents components of the legal health record. It is not the complete legal health record.[facility]
--- OUTSIDE RECORDS SUMMARY | 2025-04-13 12:34 | XMS_ITS | Encounter Summary ---
Author Organization [facility] Address [address] [facility] [address] [place] [address] Phone Care Team Providers Care Hog Trader Name Role Phone Ashley Villasenor MD Primary Care Provider Encounter Details Date Type Department Care Team (Late st Contact Info) Description 08/24/2020 Ancillary Orders [facility],Outside Imaging [address] [place] [address] System, Provider Not In, [facility] [address] [address] Social History Tobacco Use Types Packs/Day Years [...] on filedocumented in this encounter Care Teams Hog Trader Relationship Specialty Start Date End Date Ashley Villasenor MD [address] [place] [address] [place] [phone] PCP - General 08/31/20 documented as of this encounter Additional Source Comments The information contained in this document represents components of the legal health record. It is not the complete legal health record.[facility]
--- OUTSIDE RECORDS SUMMARY | 2025-04-13 12:35 | XMS_ITS | Encounter Summary ---
Author Organization [facility] Address [address] [facility] [address] [place] [address] Phone Care Team Providers Care Laborer Vineyard Name Role Phone Ashley Villasenor MD Primary Care Provider Encounter Details Date Type Department Care Team (Late st Contact Info) Description 08/24/2020 Ancillary Orders [facility],Outside Imaging 30 [place] [address] System, Provider Not In, PhD [facility] [address] [address] Social History Tobacco Use Types Packs/Day Years [...] on filedocumented in this encounter Care Teams Laborer Vineyard Relationship Specialty Start Date End Date Ashley Villasenor MD [address] [place] [address] [place] [phone] PCP - General 08/31/20 documented as of this encounter Additional Source Comments The information contained in this document represents components of the legal health record. It is not the complete legal health record.[facility]
== END 2025-04-13 11:31 | disposition home or self-care (01) ==
LOC: HO.HGS 10:32
PROVIDERS: PCP Internal Medicine; Visit Provider Physician Assistant Surgical
DX: C50.912 Malignant neoplasm of unspecified site of left female breast (principal)
CPT/HCPCS: 99213

== ENCOUNTER → 2025-04-13 10:31 | Outpatient (BNVA) | payer MEDICARE, MEDICAID, SELFPAY | PROVIDERS: PCP Internal Medicine; Visit Provider Physician Assistant Surgical | DX: C50.912 Malignant neoplasm of unspecified site of left female breast (principal); I10 Essential (primary) hypertension; Z79.890 Hormone replacement therapy | CPT/HCPCS: 99212 ==

== ENCOUNTER 2025-05-12 08:34 | Outpatient (REF) | payer MEDICARE, MEDICAID, SELFPAY ==
[2025-05-12 11:25] LABS: MANUAL DIFF FLAG NO
[2025-05-12 11:48] LABS: Hematocrit 40.2 % (37.0-47.0); Hemoglobin 12.7 g/dl (12.0-16.0); Imm Gran Abs Auto 0.03 X10*3/uL (0.00-0.03); Imm Gran Pct Auto 0.4 % (0.0-0.4); Lymphocytes Absolute Auto 1.6 X10*3/uL (1.2-4.9); Mean Corpuscular HGB Conc 31.6 g/dl (31.0-35.0); Mean Corpuscular Hemoglobin 31.8 pg (27.0-33.0); Mean Corpuscular Volume 100.8 fL (80.0-98.0); NRBC Abs Auto 0.000 X10*3/uL (0.0-0.012); NRBC Pct Auto 0.0 /100WBC (0.0-0.2); Platelet Count 179 X10*3/uL (160-400); Red Blood Count 3.99 X10*6/uL (4.20-5.50); White Blood Count 8.1 X10*3/uL (4.8-10.8)
[2025-05-12 12:08] LABS: Alanine Aminotransferase 40 U/L (0-31); Albumin Level 4.7 g/dL (3.5-5.0); Alkaline Phosphatase 67 U/L (39-117); Anion Gap 11 (12-20); Aspartate Amino Transferase 47 U/L (5-31); Blood Urea Nitrogen 12 mg/dL (9-16); Calcium 9.9 mg/dL (8.4-10.2); Carbon Dioxide 30 mmol/L (22-29); Chloride 108 mmol/L (96-108); Estimated Glomerular Filt Rate 55; Magnesium 2.3 mg/dL (1.6-2.6); Potassium 3.4 mmol/L (3.3-5.1); Sodium 146 mmol/L (135-145); Total Protein 6.9 g/dL (6.5-8.0)
--- OUTSIDE RECORDS SUMMARY | 2025-05-12 13:24 | XMS_ITS | Encounter Summary ---
Author Organization [facility] Address [address] [facility] [address] [place] [address] Phone Care Team Providers Care Associate Sales Manager Name Role Phone Ashley Villasenor MD Primary Care Provider Encounter Details Date Type Department Care Team (Late st Contact Info) Description 08/24/2020 Ancillary Orders [facility],Outside Imaging 30 [place] [address] System, Provider Not In, PhD Partners [address] [address] Social History Tobacco Use Types Packs/Day Years [...] on filedocumented in this encounter Care Teams Associate Sales Manager Relationship Specialty Start Date End Date Ashley Villasenor MD [address] [place] [address] [place] [phone] PCP - General 08/31/20 documented as of this encounter Additional Source Comments The information contained in this document represents components of the legal health record. It is not the complete legal health record.[facility]
--- OUTSIDE RECORDS SUMMARY | 2025-05-12 13:24 | XMS_ITS | Encounter Summary ---
Author Organization [facility] Address [address] [facility] [address] [place] [address] Phone Care Team Providers Care Wet Plant Operator Name Role Phone Ashley Villasenor MD Primary Care Provider Encounter Details Date Type Department Care Team (Late st Contact Info) Description 08/24/2020 Ancillary Orders [facility],Outside Imaging [address] [place] [address] System, Provider Not In, PhD Partners [address] [address] Social History Tobacco Use Types Packs/Day Years [...] on filedocumented in this encounter Care Teams Wet Plant Operator Relationship Specialty Start Date End Date Ashley Villasenor MD [address] [place] [address] [place] [phone] PCP - General 08/31/20 documented as of this encounter Additional Source Comments The information contained in this document represents components of the legal health record. It is not the complete legal health record.[facility]
--- OUTSIDE RECORDS SUMMARY | 2025-05-12 13:24 | XMS_ITS | Encounter Summary ---
Author Organization [facility] Address [address] [facility] [address] [place] [address] Phone Care Team Providers Care Window Caser Name Role Phone Ashley Villasenor MD Primary Care Provider Encounter Details Date Type Department Care Team (Late st Contact Info) Description 08/24/2020 Ancillary Orders [facility],Outside Imaging 30 [place] [address] System, Provider Not In, PhD Partners [address] [address] Social History Tobacco Use Types Packs/Day Years [...] on filedocumented in this encounter Care Teams Window Caser Relationship Specialty Start Date End Date Ashley Villasenor MD [address] [place] [address] [place] [phone] PCP - General 08/31/20 documented as of this encounter Additional Source Comments The information contained in this document represents components of the legal health record. It is not the complete legal health record.[facility]
--- OUTSIDE RECORDS SUMMARY | 2025-05-12 13:24 | XMS_ITS | Encounter Summary ---
Author Organization [facility] Address [address] [facility] [address] [place] [address] Phone Care Team Providers Care Corporate Relations Manager Name Role Phone Ashley Villasenor MD Primary Care Provider Encounter Details Date Type Department Care Team (Late st Contact Info) Description 08/24/2020 Ancillary Orders [facility],Outside Imaging 30 [place] [address] System, Provider Not In, PhD Partners [address] [address] Social History Tobacco Use Types Packs/Day Years [...] on filedocumented in this encounter Care Teams Corporate Relations Manager Relationship Specialty Start Date End Date Ashley Villasenor MD [address] [place] [address] [place] [phone] PCP - General 08/31/20 documented as of this encounter Additional Source Comments The information contained in this document represents components of the legal health record. It is not the complete legal health record.[facility]
--- OUTSIDE RECORDS SUMMARY | 2025-05-12 13:24 | XMS_ITS | Clinical Summary ---
Author Organization [facility] Address [address] [facility] [address] [place] [address] Phone Care Team Providers Care Satellite Technician Name Role Phone Ashley Villasenor MD Primary [...] Recently Relevant to Health Maintenance Insurance [address] [place] [id number] [facility] [address] [place] [id number] [place] [address] [place] [id number] [place] [address] [place] [id number] [place] [address] [place] [address] [place] [address] [place] [address] [place] Care Teams Satellite Technician Relationship Specialty Start Date End Date Ashley Villasenor MD [address] [place] [address] [place] [address] PCP - General 08/31/20 Additional Source Comments The information contained in this document represents components of the legal health record. It is not the complete legal health record.[facility]
--- OUTSIDE RECORDS SUMMARY | 2025-05-12 13:24 | XMS_ITS | Encounter Summary ---
Author Organization [facility] Address [address] [facility] [address] [place] [address] Phone Care Team Providers Care Gunnery/Ordnance Officer Name Role Phone Ashley Villasenor MD Primary Care Provider Encounter Details Date Type Department Care Team (Late st Contact Info) Description 08/24/2020 Ancillary Orders [facility],Outside Imaging 30 [place] [address] System, Provider Not In, PhD Partners [address] [address] Social History Tobacco Use Types Packs/Day Years [...] on filedocumented in this encounter Care Teams Gunnery/Ordnance Officer Relationship Specialty Start Date End Date Ashley Villasenor MD [address] [place] [address] [place] [phone] PCP - General 08/31/20 documented as of this encounter Additional Source Comments The information contained in this document represents components of the legal health record. It is not the complete legal health record.[facility]
--- OUTSIDE RECORDS SUMMARY | 2025-05-12 13:25 | XMS_ITS | Encounter Summary ---
Author Organization [facility] Address [address] [facility] [address] [place] [address] Phone Care Team Providers Care Aircraft Riveter Name Role Phone Ashley Villasenor MD Primary Care Provider Encounter Details Date Type Department Care Team (Late st Contact Info) Description 08/24/2020 Ancillary Orders [facility],Outside Imaging 30 [place] [address] System, Provider Not In, PhD Partners [address] [address] Social History Tobacco Use Types Packs/Day Years [...] on filedocumented in this encounter Care Teams Aircraft Riveter Relationship Specialty Start Date End Date Ashley Villasenor MD [address] [place] [address] [place] [phone] PCP - General 08/31/20 documented as of this encounter Additional Source Comments The information contained in this document represents components of the legal health record. It is not the complete legal health record.[facility]
--- OUTSIDE RECORDS SUMMARY | 2025-05-12 13:25 | XMS_ITS | Encounter Summary ---
Author Organization [facility] Address [address] [facility] [address] [place] [address] Phone Care Team Providers Care Materials Management Supervisor Name Role Phone Ashley Villasenor MD Primary Care Provider Encounter Details Date Type Department Care Team (Late st Contact Info) Description 08/24/2020 Ancillary Orders [facility],Outside Imaging 30 [place], [place] [phone] System, Provider Not In, PhD Partners [address] [address] Social History Tobacco Use Types Packs/Day Years [...] on filedocumented in this encounter Care Teams Materials Management Supervisor Relationship Specialty Start Date End Date Ashley Villasenor MD [address] [place] [address] [place] [phone] PCP - General 08/31/20 documented as of this encounter Additional Source Comments The information contained in this document represents components of the legal health record. It is not the complete legal health record.[facility]
== END 2025-05-12 08:35 | disposition home or self-care (01) ==
LOC: HO.LAB 08:34
PROVIDERS: PCP Internal Medicine; Visit Provider Nurse Practitioner Family
DX: I11.0 Hypertensive heart disease with heart failure (principal); I50.9 Heart failure, unspecified; I47.10 Supraventricular tachycardia, unspecified; I31.39 Other pericardial effusion (noninflammatory); Z51.89 Encounter for other specified aftercare
CPT/HCPCS: 36415; 80053; 83735; 85025

== ENCOUNTER 2025-05-12 08:34 | Outpatient (AMB) | payer MEDICARE, MEDICAID, SELFPAY ==
[2025-05-12 09:09] VITALS: BP 90/76; PULSE 145; BMI 25.2
--- NOTE | 2025-05-12 09:09 | MHC.OFFVIS ---
Vital Signs 05/12/25 09:09 Height 5 ft 4 in Weight 147 lb BMI 25.2 BP 90/76 Blood Pressure Location Lt brachial Position Sitting Pulse 145 H Pulse Source Monitor Intake Visit Reasons: r/s 04/04/25 2 wks followup [facility] d/c Industrial Laborer Required: Yes Industrial Laborer Name: voyce Allergies morphine (MORPHINE) Allergy (Unknown, Verified 05/12/25 09:16) STATES TABLET FORM CAUSES SHAKING Medication List - Last Reconciled 05/12/25 by EFREN Barry albuterol sulfate 2.5 mg inhalation Q4-6H PRN albuterol sulfate 90 mcg/actuation 90 mcg inhalation Q6H PRN cholecalciferol (vitamin D3) (Vitamin D3) 125 mcg PO DAILY empagliflozin (Jardiance) 10 mg PO DAILY ezetimibe 10 mg PO DAILY fluticasone propion-salmeterol 500-50 mcg/dose (Advair Diskus) 1 ea PO BID furosemide (Lasix) 40 mg PO DAILY losartan 50 mg PO DAILY rosuvastatin 40 mg PO DAILY sertraline 50 mg PO QAM HPI HPI r/s 04/04/25 2 wks followup [facility] d/c: Details: The patient is a 69 year old female presenting for a follow-up visit after a recent hospitalization for shortness of breath, where she was diagnosed with acute diastolic heart failure. A CTA of the chest at that time revealed a small left pleural effusion, a trace right pleural effusion, and mild interstitial edema. An echocardiogram showed a preserved ejection fraction of 60-65%, moderate left ventricular hypertrophy, severe diastolic dysfunction, a small pericardial effusion, and mild pulmonary hypertension with no significant valvular abnormalities. She was diuresed 2.2 liters and discharged on Jardiance 10 mg daily while continuing her losartan/hydrochlorothiazide.Since that time, her hydrochlorothiazed was stopped and she was started on lasix 40mg daily. Her past medical history is significant for left breast cancer and asthma. While coming into her visit today she experienced heart palpitations and lightheadedness. Once settled in the room her EKG did show supraventricular tachycardia, rate 145. She was reclined back on the stretcher and a few moments later reported she was feeling better. Heart tones had slowed and repeat EKG confirmed normal sinus rhythm, rate 84. She tells me she has never had an episode like this in the past. She has been doing well since her hospital discharge with no shortness of breath, chest discomfort, lightheadedness on other days. She does not typically feel heart palpitations. She does only light physical activities and ambulates with a walker. Certified co founder and chairman used. [facility] Medical History Pericardial effusion Breast cancer History of high cholesterol Asthma HTN (hypertension) Arthritis Abnormal mammogram of left breast Surgical History History of lumpectomy of left breast Family History Mother Arthritis Alzheimer disease Social History Household Members: Family Housing: House Are you a primary health care administrator to a significant other at home: No Do you presently have visiting nurse or other home services: No Alcohol intake: never Patient Tobacco Use Status: Never used Tobacco e-Cigarette/Vaping Use: Never Used service: No Current occupational status: unemployed Current occupation: rt hand Female Reproductive History Menstrual Age of Menarche: 12 Review of Systems Const All systems reviewed & are unremarkable except as noted in HPI and below ENT Denies dizziness Card Denies chest pain, Denies chest pain at rest, Denies chest pain with activity, Reports rapid heart rate (today only with dizziness), Denies pedal edema, Denies edema, Denies leg edema, Denies lightheadedness, Denies palpitations, Denies dyspnea, Denies dyspnea on exertion and Denies orthopnea Resp Denies cough, Denies dyspnea and Denies dyspnea on exertion GI Denies hematochezia and Denies change in stool character Musc Denies abnormal gait, Denies limited range of motion, Denies muscle cramps, Denies muscle weakness, Denies numbness, Denies radiating pain into limb, Denies stiffness and Denies tingling Neuro Denies abnormal gait, Denies dizziness, Denies numbness and Denies tingling Endo Denies palpitations Physical Exam Vital Signs: Last Vital Signs Pulse 145 H 05/12/25 09:09 BP 90/76 05/12/25 09:09 BMI result Body Mass Index 25.2 Const General: cooperative, healthy appearing, comfortable and no acute distress Orientation/consciousness: patient oriented x3 Neck Neck: Yes normal visual inspection Resp Effort & Inspection: normal respiratory effort Auscultation: clear to auscultation bilaterally, no crackles, no rales, no rhonchi and no wheezes Cardio Rate: regular rate Rhythm: regular rhythm Heart sounds: S1 normal heart sound present, S2 normal heart sound present, no gallops, no murmurs and no rubs Neuro General: patient oriented x3 Extrem General: Yes normal to inspection, No no pedal edema and No calf tenderness Psych Appearance: grossly normal Mental Status: mental status grossly normal Speech and movement: Normal speech and movement present Office Procedures EKG Details: Today, read by me, done 10:41 showing normal sinus rhythm, low-voltage QRS, rate 84 [id number], Complete EKG Details: Today, read by me, done at 10:24 showing supraventricular tachycardia, rate 145 [id number], Complete Assessment & Plan Assessment & Plan (1) Supraventricular tachycardia: Code(s): I47.10 - Supraventricular tachycardia, unspecified Category: Medical Plan: Sudden onset of tachycardia and lightheadedness on her way to this visit today. EKG showing supraventricular tachycardia, rate 145. Symptoms resolved with laying down in the office and repeat EKG showed normal sinus rhythm, rate 84. No prior known history of this rhythm or heart palpitations. Will plan to start her on metoprolol XL 25 mg daily to help prevent reoccurrence. Blood pressure on low side will need to reduce losartan down to 25 mg daily. Checking Holter monitor to assess for further arrhythmia. Will have her check labs today to assess for any significant findings. (2) Congestive heart failure: Code(s): I50.9 - Heart failure, unspecified Category: Medical Plan: New finding of diastolic heart failure at time of most recent admission. Echocardiogram confirmed grade 3 diastolic dysfunction, EF 60-65%. She was diuresed during her admission and discharged with Jardiance. As outpatient it appears that her hydrochlorothiazide was changed to furosemide. It also seems that she was on spironolactone for a short period of time. She is not fluid overloaded on exam. Reducing losartan for low blood pressure. Adding metoprolol. Signs and symptoms of heart failure reviewed with her. (3) HTN (hypertension): Code(s): I10 - Essential (primary) hypertension Category: Medical Plan: Blood pressure goal less than 130/80. Initially low during SVT episode as above. Once rhythm improved recheck of blood pressure more normal at 108/68. Reducing losartan. (4) Pericardial effusion: Code(s): I31.39 - Other pericardial effusion (noninflammatory) Category: Medical Plan: Small pericardial effusion noted on last echocardiogram. She has since been started on diuretics. No reports of shortness of breath. (5) Hospital discharge follow-up: Code(s): Z51.89 - Encounter for other specified aftercare Category: Medical Plan: Notes reviewed Plan I discussed with the patient that her episode of dizziness and rapid heartbeat today was identified as supraventricular tachycardia on her EKG, which fortunately resolved on its own during her time in the office. I explained the plan to investigate potential causes by checking her blood work today for electrolyte abnormalities. We will also order a Holter monitor for her to wear for a few days to get a better understanding of her heart's rhythm, and centralized scheduling will call her to set this up. I informed her that I will be starting a new medication to help prevent this from happening again. I provided clear instructions that if she experiences the rapid heartbeat again, she should lie down and try to relax. I emphasized that if the symptoms do not correct themselves or if she feels unwell, she must go to the emergency room. A follow-up visit with me was scheduled in two to three months to review the test results and her clinical status. Orders: Orders Complete Blood Count Auto Diff Today I47.10 - Supraventricular tachycardia, unspecified ECG 3 day holter monitor Today I47.10 - Supraventricular tachycardia, unspecified Comprehensive Met. Panel Today I47.10 - Supraventricular tachycardia, unspecified Magnesium Today I47.10 - Supraventricular tachycardia, unspecified Medications: New metoprolol succinate ER 25 mg PO DAILY 30 tabs 5RF losartan Dose reduced 25 mg PO DAILY 30 tabs 5RF Patient Instructions: - Please go to get blood work done today to check your electrolyte levels. - Our scheduling department will call you to arrange for a Holter monitor, which is a device you will wear for a couple of days to record your heart's activity. - I am prescribing a new medication to help prevent your heart from beating too fast again. - If you feel your heart racing, lie down on your back and try to relax. - If the fast heartbeat does not stop on its own, or if you feel very unwell, you must go to the nearest emergency room. - Please schedule a follow-up appointment with me in about 2 to 3 months. Patient was informed and verbally consented to the use of an ambient scribe for clinic note documentation during this visit. Visit time spent on chart review, interview, assessment, orders, documentation. Coding Level of Care Code Est Pt Level 4 (61019) Complex visit Add On G2211 Diagnoses Supraventricular tachycardia I47.10 Congestive heart failure I50.9 HTN (hypertension) I10 Pericardial effusion I31.39 Hospital discharge follow-up Z51.89 CPT Codes EKG - CPT: 04006-[id number], Complete ([id number]) EKG - CPT: 44707-[id number], Complete ([id number])
== END 2025-05-12 09:56 | disposition home or self-care (01) ==
PROVIDERS: PCP Internal Medicine; Visit Provider Nurse Practitioner Family
DX: I47.10 Supraventricular tachycardia, unspecified (principal); I50.9 Heart failure, unspecified; I10 Essential (primary) hypertension; I31.39 Other pericardial effusion (noninflammatory); Z51.89 Encounter for other specified aftercare
CPT/HCPCS: 93010; 99214; G2211

== ENCOUNTER 2025-05-23 13:15 | Outpatient (REF) | payer MEDICARE, MEDICAID, SELFPAY ==
--- OUTSIDE RECORDS SUMMARY | 2025-05-23 17:18 | XMS_ITS | Encounter Summary ---
Author Organization [facility] Address [address] [facility] [address] [place] [address] Phone Care Team Providers Care High School Academic Coach Name Role Phone Ashley Villasenor MD Primary Care Provider Encounter Details Date Type Department Care Team (Late st Contact Info) Description 08/24/2020 Ancillary Orders [facility],Outside Imaging 30 [place], [place] [phone] System, Provider Not In, PhD Partners [address] [address] Social History Tobacco Use Types Packs/Day Years [...] on filedocumented in this encounter Care Teams High School Academic Coach Relationship Specialty Start Date End Date Ashley Villasenor MD [address] [place] [address] [place] [phone] PCP - General 08/31/20 documented as of this encounter Additional Source Comments The information contained in this document represents components of the legal health record. It is not the complete legal health record.[facility]
--- OUTSIDE RECORDS SUMMARY | 2025-05-23 17:18 | XMS_ITS | Encounter Summary ---
Author Organization [facility] Address [address] [facility] [address] [place] [address] Phone Care Team Providers Care Paediatric Thoracic Physician Name Role Phone Ashley Villasenor MD Primary Care Provider Encounter Details Date Type Department Care Team (Late st Contact Info) Description 08/24/2020 Ancillary Orders [facility],Outside Imaging 30 [place] [address] System, Provider Not In, PhD Partners [address] [address] Social History Tobacco Use Types Packs/Day Years [...] on filedocumented in this encounter Care Teams Paediatric Thoracic Physician Relationship Specialty Start Date End Date Ashley Villasenor MD [address] [place] [address] [place] [phone] PCP - General 08/31/20 documented as of this encounter Additional Source Comments The information contained in this document represents components of the legal health record. It is not the complete legal health record.[facility]
--- OUTSIDE RECORDS SUMMARY | 2025-05-23 17:18 | XMS_ITS | Encounter Summary ---
Author Organization [facility] Address [address] [facility] [address] [place] [address] Phone Care Team Providers Care Nursing Informatics Analyst Name Role Phone Ashley Villasenor MD Primary Care Provider Encounter Details Date Type Department Care Team (Late st Contact Info) Description 08/24/2020 Ancillary Orders [facility],Outside Imaging 30 [place] [address] System, Provider Not In, PhD Partners [address] [address] Social History Tobacco Use Types Packs/Day Years [...] on filedocumented in this encounter Care Teams Nursing Informatics Analyst Relationship Specialty Start Date End Date Ashley Villasenor MD [address] [place] [address] [place] [phone] PCP - General 08/31/20 documented as of this encounter Additional Source Comments The information contained in this document represents components of the legal health record. It is not the complete legal health record.[facility]
--- OUTSIDE RECORDS SUMMARY | 2025-05-23 17:18 | XMS_ITS | Encounter Summary ---
Author Organization [facility] Address [address] [facility] [address] [place] [address] Phone Care Team Providers Care Arbitrator Name Role Phone Ashley Villasenor MD Primary Care Provider Encounter Details Date Type Department Care Team (Late st Contact Info) Description 08/24/2020 Ancillary Orders [facility],Outside Imaging [address] [place] [address] System, Provider Not In, [facility] [address] [address] Social History Tobacco Use Types Packs/Day Years [...] on filedocumented in this encounter Care Teams Arbitrator Relationship Specialty Start Date End Date Ashley Villasenor MD [address] [place] [address] [place] [phone] PCP - General 08/31/20 documented as of this encounter Additional Source Comments The information contained in this document represents components of the legal health record. It is not the complete legal health record.[facility]
--- OUTSIDE RECORDS SUMMARY | 2025-05-23 17:18 | XMS_ITS | Encounter Summary ---
Author Organization [facility] Address [address] [facility] [address] [place] [address] Phone Care Team Providers Care Publishing Specialist Name Role Phone Ashley Villasenor MD Primary Care Provider Encounter Details Date Type Department Care Team (Late st Contact Info) Description 08/24/2020 Ancillary Orders [facility],Outside Imaging 30 [place] [address] System, Provider Not In, [facility] [address] [address] Social History Tobacco Use Types Packs/Day Years [...] on filedocumented in this encounter Care Teams Publishing Specialist Relationship Specialty Start Date End Date Ashley Villasenor MD [address] [place] [address] [place] [phone] PCP - General 08/31/20 documented as of this encounter Additional Source Comments The information contained in this document represents components of the legal health record. It is not the complete legal health record.[facility]
--- OUTSIDE RECORDS SUMMARY | 2025-05-23 17:18 | XMS_ITS | Encounter Summary ---
Author Organization [facility] Address [address] [facility] [address] [place] [address] Phone Care Team Providers Care Property Handler Name Role Phone Ashley Villasenor MD Primary Care Provider Encounter Details Date Type Department Care Team (Late st Contact Info) Description 08/24/2020 Ancillary Orders [facility],Outside Imaging 30 [place] [address] System, Provider Not In, [facility] [address] [address] Social History Tobacco Use Types Packs/Day Years [...] on filedocumented in this encounter Care Teams Property Handler Relationship Specialty Start Date End Date Ashley Villasenor MD [address] [place] [address] [place] [phone] PCP - General 08/31/20 documented as of this encounter Additional Source Comments The information contained in this document represents components of the legal health record. It is not the complete legal health record.[facility]
--- OUTSIDE RECORDS SUMMARY | 2025-05-23 17:18 | XMS_ITS | Encounter Summary ---
Author Organization [facility] Address [address] [facility] [address] [place] [address] Phone Care Team Providers Care Shield Operator Name Role Phone Ashley Villasenor MD Primary Care Provider Encounter Details Date Type Department Care Team (Late st Contact Info) Description 08/24/2020 Ancillary Orders [facility],Outside Imaging 30 [place] [address] System, Provider Not In, [facility] [address] [address] Social History Tobacco Use Types Packs/Day Years [...] on filedocumented in this encounter Care Teams Shield Operator Relationship Specialty Start Date End Date Ashley Villasenor MD [address] [place] [address] [place] [phone] PCP - General 08/31/20 documented as of this encounter Additional Source Comments The information contained in this document represents components of the legal health record. It is not the complete legal health record.[facility]
--- OUTSIDE RECORDS SUMMARY | 2025-05-23 17:18 | XMS_ITS | Clinical Summary ---
Author Organization [facility] Address [address] [facility] [address] [place] [phone] Phone Care Team Providers Care Area Supervisor Name Role Phone Ashley Villasenor MD [...] Recently Relevant to Health Maintenance Insurance [address] [place] [id number] [email or web address] [address] [place] [id number] [place] [address] [place] [id number] [place] [address] [place] [id number] [place] [address] [place] [address] [place] [address] [place] [address] [place] Care Teams Area Supervisor Relationship Specialty Start Date End Date Ashley Villasenor MD [address] [place] [address] [place] [phone] PCP - General 08/31/20 Additional Source Comments The information contained in this document represents components of the legal health record. It is not the complete legal health record.[facility]
== END 2025-05-23 13:16 | disposition home or self-care (01) ==
LOC: HO.MAMMO 13:15
PROVIDERS: PCP Internal Medicine; Visit Provider Internal Medicine
DX: Z12.31 Encounter for screening mammogram for malignant neoplasm of breast (principal)
CPT/HCPCS: 77063; 77067

== ENCOUNTER → 2025-05-23 14:00 | Outpatient (BNV) | payer MEDICARE, MEDICAID, SELFPAY | PROVIDERS: PCP Internal Medicine; Visit Provider Internal Medicine | DX: Z12.31 Encounter for screening mammogram for malignant neoplasm of breast (principal) | CPT/HCPCS: 77063; 77067 ==

== ENCOUNTER → 2025-05-29 12:48 | Outpatient (REF) | payer MEDICARE, MEDICAID, SELFPAY ==
--- OUTSIDE RECORDS SUMMARY | 2025-05-29 15:56 | XMS_ITS | Clinical Summary ---
Author Organization [facility] Address [address] [facility] [address] [place] [address] Phone Care Team Providers Care Jointer Machine Operator Name Role Phone Ashley Villasenor MD [...] Recently Relevant to Health Maintenance Insurance [address] [place] [id number] [facility] [employer] [address] [place] [phone] [place] [address] [place] [id number] [place] [address] [place] [id number] [place] [address] [place] [address] [place] [address] [place] [address] [place] Care Teams Jointer Machine Operator Relationship Specialty Start Date End Date Ashley Villasenor MD [address] [place] [address] [place] [address] PCP - General 08/31/20 Additional Source Comments The information contained in this document represents components of the legal health record. It is not the complete legal health record.[facility]
--- OUTSIDE RECORDS SUMMARY | 2025-05-29 15:56 | XMS_ITS | Encounter Summary ---
Author Organization [facility] Address [address] [facility] [address] [place] [address] Phone Care Team Providers Care Transportation Planner Name Role Phone Ashley Villasenor MD Primary Care Provider Encounter Details Date Type Department Care Team (Late st Contact Info) Description 08/24/2020 Ancillary Orders [facility],Outside Imaging 30 [place] [address] System, Provider Not In, [facility] [address] [address] Social History Tobacco Use Types Packs/Day Years [...] on filedocumented in this encounter Care Teams Transportation Planner Relationship Specialty Start Date End Date Ashley Villasenor MD [address] [place] [address] [place] [phone] PCP - General 08/31/20 documented as of this encounter Additional Source Comments The information contained in this document represents components of the legal health record. It is not the complete legal health record.[facility]
--- OUTSIDE RECORDS SUMMARY | 2025-05-29 15:56 | XMS_ITS | Encounter Summary ---
Author Organization [facility] Address [address] [facility] [address] [place] [phone] Phone Care Team Providers Care High Tension Tester Name Role Phone Ashley Villasenor MD Primary Care Provider Encounter Details Date Type Department Care Team (Late st Contact Info) Description 08/24/2020 Ancillary Orders [facility],Outside Imaging 30 [place] [address] System, Provider Not In, [facility] [address] [address] Social History Tobacco Use Types Packs/Day Years [...] filedocumented in this encounter Care Teams High Tension Tester Relationship Specialty Start Date End Date Ashley Villasenor MD [address] [place] [address] [place] [phone] PCP - General 08/31/20 documented as of this encounter Additional Source Comments The information contained in this document represents components of the legal health record. It is not the complete legal health record.[facility]
--- OUTSIDE RECORDS SUMMARY | 2025-05-29 15:56 | XMS_ITS | Encounter Summary ---
Author Organization [facility] Address [address] [facility] [address] [place] [phone] Phone Care Team Providers Care Painter Bottom Name Role Phone Ashley Villasenor MD Primary Care Provider Encounter Details Date Type Department Care Team (Late st Contact Info) Description 08/24/2020 Ancillary Orders [facility],Outside Imaging 30 [place], [place] [address] System, Provider Not In, [facility] [address] [address] Social History Tobacco Use Types Packs/Day Years [...] on filedocumented in this encounter Care Teams Painter Bottom Relationship Specialty Start Date End Date Ashley Villasenor MD [address] [place] [address] [place] [phone] PCP - General 08/31/20 documented as of this encounter Additional Source Comments The information contained in this document represents components of the legal health record. It is not the complete legal health record.[facility]
--- OUTSIDE RECORDS SUMMARY | 2025-05-29 15:56 | XMS_ITS | Encounter Summary ---
Author Organization [facility] Address [address] [facility] [address] [place] [address] Phone Care Team Providers Care Sales Support Consultant Name Role Phone Ashley Villasenor MD Primary Care Provider Encounter Details Date Type Department Care Team (Late st Contact Info) Description 08/24/2020 Ancillary Orders [facility],Outside Imaging 30 [place] [address] System, Provider Not In, [facility] [address] [address] Social History Tobacco Use Types Packs/Day Years [...] on filedocumented in this encounter Care Teams Sales Support Consultant Relationship Specialty Start Date End Date Ashley Villasenor MD [address] [place] [address] [place] [phone] PCP - General 08/31/20 documented as of this encounter Additional Source Comments The information contained in this document represents components of the legal health record. It is not the complete legal health record.[facility]
--- OUTSIDE RECORDS SUMMARY | 2025-05-29 15:56 | XMS_ITS | Encounter Summary ---
Author Organization [facility] Address [address] [facility] [address] [place] [address] Phone Care Team Providers Care Contracting Specialist Name Role Phone Ashley Villasenor MD Primary Care Provider Encounter Details Date Type Department Care Team (Late st Contact Info) Description 08/24/2020 Ancillary Orders [facility],Outside Imaging 30 [place] [address] System, Provider Not In, [facility] [address] [address] Social History Tobacco Use Types Packs/Day Years [...] on filedocumented in this encounter Care Teams Contracting Specialist Relationship Specialty Start Date End Date Ashley Villasenor MD [address] [place] [address] [place] [phone] PCP - General 08/31/20 documented as of this encounter Additional Source Comments The information contained in this document represents components of the legal health record. It is not the complete legal health record.[facility]
--- OUTSIDE RECORDS SUMMARY | 2025-05-29 15:56 | XMS_ITS | Encounter Summary ---
Author Organization [facility] Address [address] [facility] [address] [place] [address] Phone Care Team Providers Care Road Sign Installer Name Role Phone Ashley Villasenor MD Primary Care Provider Encounter Details Date Type Department Care Team (Late st Contact Info) Description 08/24/2020 Ancillary Orders [facility],Outside Imaging 30 [place] [address] System, Provider Not In, [facility] [address] [address] Social History Tobacco Use Types Packs/Day Years [...] on filedocumented in this encounter Care Teams Road Sign Installer Relationship Specialty Start Date End Date Ashley Villasenor MD [address] [place] [address] [place] [phone] PCP - General 08/31/20 documented as of this encounter Additional Source Comments The information contained in this document represents components of the legal health record. It is not the complete legal health record.[facility]
--- OUTSIDE RECORDS SUMMARY | 2025-05-29 15:56 | XMS_ITS | Encounter Summary ---
Author Organization [facility] Address [address] [facility] [address] [place] [address] Phone Care Team Providers Care Pressure Control Supervisor Name Role Phone Ashley Villasenor MD Primary Care Provider Encounter Details Date Type Department Care Team (Late st Contact Info) Description 08/24/2020 Ancillary Orders [facility],Outside Imaging 30 [place] [address] System, Provider Not In, [facility] [address] [address] Social History Tobacco Use Types Packs/Day Years [...] on filedocumented in this encounter Care Teams Pressure Control Supervisor Relationship Specialty Start Date End Date Ashley Villasenor MD [address] [place] [address] [place] [phone] PCP - General 08/31/20 documented as of this encounter Additional Source Comments The information contained in this document represents components of the legal health record. It is not the complete legal health record.[facility]
== END ==
LOC: HO.CARD 12:48
PROVIDERS: PCP Internal Medicine; Visit Provider Nurse Practitioner Family
DX: I47.10 Supraventricular tachycardia, unspecified (principal)
CPT/HCPCS: 93242

== ENCOUNTER → 2025-05-29 12:52 | Outpatient (BNV) | payer MEDICARE, MEDICAID, SELFPAY | PROVIDERS: PCP Internal Medicine; Visit Provider Internal Medicine Cardiovascular Disease | DX: I47.10 Supraventricular tachycardia, unspecified (principal) | CPT/HCPCS: 93244 ==